=== PATIENT | male | born 1950 | race Caucasian/White ===

== ENCOUNTER 2016-10-01 08:53 | Outpatient (RCR) | payer BC ==
[~2016-10-01] VITALS: Ht 180.3 cm; Wt 82.1 kg
[~2016-10-01 08:53] MED LIST: ASPI-587 PO; CETI10CA PO; DECITABINE 40 MG in NS (IVPB) CANCER CENTER 50 ML IV SCH; ESOM20CA PO; FERR256T PO; FERR325T5 PO; HCTZ12.5T GT; HYDR-3454 PO; HYDR-3730 PO; HYDR25TA4 PO; LEVITRA; LIDOCAINE 2% ONE; LISI20TA PO; MULT-608 PO; NAPR220C11 PO; NAPR220T66 PO; NF-ESOM40C PO; NS IV 500 ML (CANCER CENTER) IV SCH; OMEG1CAP51 PO; ONDANSETRON MDV (CANCER CENTER 16 MG in NS (IVPB) CANCER CENTER 50 ML IV SCH; PRAV10TA PO; PRAV20TA PO; PROSTATIN; SUCR1TAB PO; VARD20TA30 PO; VARD5TAB5 PO; VITAMINES
[2016-10-01 09:03] LABS: BASOPHILS % (AUTO) 1 % (0-10); EOSINOPHILS % (AUTO) 1 % (0-10); LYMPHOCYTES # (AUTO) 0.5 X 10^3 (1.0-4.0); LYMPHOCYTES % (AUTO) 34 % (12-44); MEAN CORPUSCULAR HEMOGLOBIN 36 PG (25-34); MEAN CORPUSCULAR HGB CONC 36 G/DL (32-36); MEAN CORPUSCULAR VOLUME 99 FL (80-99); MEAN PLATELET VOLUME 8.5 FL (7.4-10.4); MONOCYTES # (AUTO) 0.1 X 10^3 (0.0-1.0); MONOCYTES % (AUTO) 9 % (0-12); NEUTROPHILS # (AUTO) 0.9 X 10^3 (1.8-7.8); NEUTROPHILS % (AUTO) 55 % (42-75); PLATELET COUNT 205 10^3/uL (130-400); RED BLOOD COUNT 3.58 10^6/uL (4.35-5.85); RED CELL DISTRIBUTION WIDTH 13.4 % (10.0-14.5); RETICULOCYTE % 2.14 % (0.50-2.40); WHITE BLOOD COUNT 1.6 10^3/uL (4.3-11.0)
[2016-10-01 09:35] LABS: BASOPHILS % (MANUAL) 1 %; LYMPHOCYTES % (MANUAL) 34 %; NEUTROPHILS % (MANUAL) 50 %; REACTIVE LYMPHOCYTES 4 %; STOMATOCYTES MODERATE
[2016-10-01 09:40] LABS: ALANINE AMINOTRANSFERASE 28 U/L (0-55); ALBUMIN 4.3 G/DL (3.2-4.5); ANION GAP 8 MMOL/L (5-14); ASPARTATE AMINO TRANSFERASE 27 U/L (5-34); BILIRUBIN,TOTAL 0.6 MG/DL (0.1-1.0); BLOOD UREA NITROGEN 12 MG/DL (7-18); BUN/CREATININE RATIO 13; CALCIUM 9.2 MG/DL (8.5-10.1); CARBON DIOXIDE 28 MMOL/L (21-32); CHLORIDE 92 MMOL/L (98-107); GFR ESTIMATED > 60; GLUCOSE 104 MG/DL (70-105); LACTATE DEHYDROGENASE 258 U/L (125-220); POTASSIUM 4.2 MMOL/L (3.6-5.0); SODIUM 128 MMOL/L (135-145); TOTAL PROTEIN 6.8 G/DL (6.4-8.2)
== END 2016-10-16 10:09 | disposition home or self-care (01) ==
LOC: ONC 08:53
PROVIDERS: ATTEND Internal Medicine Hematology & Oncology
DX: Z51.11 Encounter for antineoplastic chemotherapy (principal); D46.9 Myelodysplastic syndrome, unspecified; I10 Essential (primary) hypertension; E78.5 Hyperlipidemia, unspecified; Z79.899 Other long term (current) drug therapy; Z79.82 Long term (current) use of aspirin
CPT/HCPCS: 36415; 38221; 80053; 83615; 85007; 85027; 85045; 88184; 88185; 88237; 88264; 88280; 88305; 88311; 88313; 88368; 88369; 96375; 96413; 99213

== ENCOUNTER → 2016-11-05 | Outpatient (CLI) | payer MEDICARE, OTHER ==
[~2016-11-05] MED LIST changes: +CATHETER FLUSH 10 ML SYR IV PRN; -DECITABINE 40 MG in NS (IVPB) CANCER CENTER 50 ML IV SCH; +IOHEXOL 350 MG/ML 150 ML (OMNIPAQUE 350) VIAL IV ONE; -LIDOCAINE 2% ONE; +NS 100 ML (IVPB) BAG IV ONE; -NS IV 500 ML (CANCER CENTER) IV SCH; -ONDANSETRON MDV (CANCER CENTER 16 MG in NS (IVPB) CANCER CENTER 50 ML IV SCH
--- OUTSIDE RECORDS SUMMARY | 2016-11-05 09:30 | XMS REPORT | Continuity of Care Document ---
Author Author [facility] Organization [facility] Address Unknown Phone Unavailable Care Team Providers Care Formulation Scientist Name Role Phone ADRIAN MENJIVAR DO PCP Insurance Providers Payer Name Policy Number Subscriber Name Relationship [id number] Lyndon Jesus 18 Self / Same As Patient Advance Directives Directive Response Recorded Date/Time Advance Directives No 09/08/16 7:54am Health Care Power of Director Business Management No 09/08/16 7:54am Organ Donor Yes 09/08/16 7:54am Problems Active Problems Medical Problem Onset Date Status Chest pain Unknown Acute Medications Current Home Medications Medication Dose Units Route Directions Days/Qty Instructions Start Date Lisinopril 20 Mg 20 Mg Oral Daily 09/10/14 [place]-3 Fatty Acids/Fish Oil 1 Each 1,000 Mg [...] Discharge/Depart Date Attending Provider Discharged Recurring [facility] 10/01/16 8:53am 01/05/ 17 10:09am VALERIA ALEXANDER
--- NOTE | 2016-11-05 11:19 | Diagnostic Imaging Report ---
PROCEDURE: CT angiography of the chest with contrast. TECHNIQUE: Multiple contiguous axial images were obtained through the chest after uneventful bolus administration of intravenous contrast. Reconstructed CTA MIP acquisitions were also performed. INDICATION: Shortness of breath x 1 year. FINDINGS: The heart size is normal. The aorta appears normal. There are no pulmonary emboli. There is no hilar or mediastinal lymphadenopathy. The lungs are clear. There are no effusions or pneumothoraces. IMPRESSION: Negative CTA chest. Dictated by: Dictated on workstation # [id number]
== END ==
LOC: RAD 09:26
PROVIDERS: ATTEND Internal Medicine
DX: R06.09 Other forms of dyspnea (principal)
CPT/HCPCS: 71275

== ENCOUNTER → 2016-11-13 | Outpatient (CLI) | payer MEDICARE, OTHER ==
[~2016-11-13] MED LIST changes: -CATHETER FLUSH 10 ML SYR IV PRN; -IOHEXOL 350 MG/ML 150 ML (OMNIPAQUE 350) VIAL IV ONE; -NS 100 ML (IVPB) BAG IV ONE
--- OUTSIDE RECORDS SUMMARY | 2016-11-13 11:50 | XMS REPORT | Continuity of Care Document ---
Author Author [facility] Organization [facility] Address Unknown Phone Unavailable Care Team Providers Care Pharmacy Ancillary Name Role Phone ADRIAN MENJIVAR DO PCP Insurance Providers Payer Name Policy Number [id number] Lyndon Jesus 18 Self / Same As Patient Advance Directives Directive Response Recorded Date/Time Advance Directives No 09/08/16 7:54am Health Care Power of Nurse Receptionist No 09/08/16 7:54am Organ Donor Yes 09/08/16 7:54am Problems Active Problems Medical Problem Onset Date Status Chest pain Unknown Acute Medications Current Home Medications Medication Dose Units Route Directions Days/Qty Instructions Start Date Lisinopril 20 Mg 20 Mg Oral Daily 09/10/14 [place]-3 Fatty Acids/Fish Oil 1 Each 1,000 Mg [...] Discharge/Depart Date Attending Provider Discharged Recurring [facility] 10/01/16 8:53am 01/05/ 17 10:09am VALERIA ALEXANDER
--- NOTE | 2016-11-18 09:47 | ECHOCARDIOGRAPHY REPORT ---
PROCEDURE PHYSICIAN: BETTY DOMÍNGUEZ DATE OF PROCEDURE: 11/13/2016 TWO DIMENSIONAL ECHOCARDIOGRAM REPORT PRIMARY PHYSICIAN: Dr. Marques OTHER PHYSICIAN: Dr. Sanford REFERRING PHYSICIAN: ORDERING PHYSICIAN: Dr. Marques INDICATION FOR THE PROCEDURE: Shortness of breath MEASUREMENTS DERIVED VALUES LV DIAMETER (LAX) NORMALS NORMALS Diastolic 5. (3.6-5.2) Eject. Fract. (60%+/-6%) Systolic (2.3-3.9) Diastolic Vol. % Shortening (0.22-0.42) Systolic Vol. Aortic Root 3. IVS THICKNESS Diastolic 0.9 (0.6-1.1) LVPW THICKNESS Diastolic 0.9 (0.6-1.1) LA DIAMETER Systolic 4.6 (2.1-3.7) DESCRIPTION: Two-dimensional echocardiography shows normal global left ventricular systolic function with normal regional wall motion. Aortic, mitral and tricuspid valve leaflets show good leaflet excursion. There is no significant pericardial effusion. There is mild enlargement of the left atrium. Doppler imaging shows trivial to mild mitral and tricuspid regurgitation. Pulmonary artery systolic pressure is estimated to be approximately 35 mmHg. There is no Doppler evidence of significant valvular stenosis. There is trivial aortic regurgitation. The inferior vena cava appears mildly dilated but does exhibit inspiratory collapse. CONCLUSION: 1. Normal global left ventricular systolic function with an ejection fraction of approximately 60%. 2. Mild enlargement of the left atrium. 3. Trivial to mild mitral, tricuspid and aortic regurgitation. 4. Mild aortic valve sclerosis without evidence of significant valvular stenosis. 5. Pulmonary artery systolic pressure is estimated to be approximately 35 mmHg. Job ID: [id number] Dictated Date: 11/17/2016 12:51:27 Money Room Teller Date: 11/18/2016 09:41:28 / noble
== END ==
LOC: CARD 11:46
PROVIDERS: ATTEND Internal Medicine
DX: R06.09 Other forms of dyspnea (principal)
CPT/HCPCS: 93306

== ENCOUNTER → 2016-12-10 | Outpatient (CLI) | payer MEDICARE, OTHER ==
[~2016-12-10] MED LIST changes: +RT-ALBUTEROL SULF 2.5 MG/3 ML PRE-MIX VIAL INH ONE; +RT-ALBUTEROL SULF 2.5 MG/3 ML PRE-MIX VIAL ONE
--- OUTSIDE RECORDS SUMMARY | 2016-12-10 08:20 | XMS REPORT | Continuity of Care Document ---
Author Author [facility] Organization [facility] Address Unknown Phone Unavailable Care Team Providers Care Barrel Roller Name Role Phone ADRIAN MENJIVAR DO PCP Insurance Providers Payer Name Policy Number Subscriber Name [id number] Lyndon Jesus 18 Self / Same As Patient Advance Directives Directive Response Recorded Date/Time Advance Directives No 09/08/16 7:54am Health Care Power of Streetcar Operator No 09/08/16 7:54am Organ Donor Yes 09/08/16 7:54am Problems Active Problems Medical Problem Onset Date Status Chest pain Unknown Acute Medications Current Home Medications Medication Dose Units Route Directions Days/Qty Instructions Start Date Lisinopril 20 Mg 20 Mg Oral Daily 09/10/14 [place]-3 Fatty Acids/Fish Oil 1 Each 1,000 Mg [...] Discharge/Depart Date Attending Provider Discharged Recurring [facility] 10/01/16 8:53am 01/05/ 17 10:09am VALERIA ALEXANDER
== END ==
LOC: RT 08:17
PROVIDERS: ATTEND Nurse Practitioner Family
DX: R06.00 Dyspnea, unspecified (principal); D46.Z Other myelodysplastic syndromes; G47.33 Obstructive sleep apnea (adult) (pediatric); F17.201 Nicotine dependence, unspecified, in remission
CPT/HCPCS: 94060; 94640; 94726; 94729

== ENCOUNTER → 2017-01-14 | Outpatient (RCR) | payer MEDICARE, OTHER ==
--- OUTSIDE RECORDS SUMMARY | 2016-10-16 10:21 | XMS REPORT | Continuity of Care Document ---
Author Author [facility] Organization [facility] Address Unknown Phone Unavailable Care Team Providers Care Lactation Coordinator Name Role Phone ADRIAN MENJIVAR DO PCP Insurance Providers Payer Name Policy Number Subscriber [id number] Lyndon Jesus 18 Self / Same As Patient Advance Directives Directive Response Recorded Date/Time Advance Directives No 09/08/16 7:54am Health Care Power of Casing In Line Setter No 09/08/16 7:54am Organ Donor Yes 09/08/16 7:54am Problems Active Problems Medical Problem Onset Date Status Chest pain Unknown Acute Medications Current Home Medications Medication Dose Units Route Directions Days/Qty Instructions Start Date Lisinopril 20 Mg 20 Mg Oral Daily 09/10/14 [place]-3 Fatty Acids/Fish Oil 1 Each 1,000 Mg Oral Three Times A Day 09/10/14 Esomeprazole Magnesium 40 Mg 40 Mg Oral Daily 10/19/14 Multivitamins 1 Tab 1 Tab Oral 1700 10/19/14 Cetirizine Hcl 10 Mg 10 Mg Oral Daily 10/03/15 Naproxen Sodium 220 Mg 440 Mg Oral Twice A Day 07/28/16 Vardenafil Hcl 20 Mg 20 Mg Oral As Needed as needed for Erectile Dysfunction 07/28/16 Hydrochlorothiazide 25 Mg 25 Mg Oral Q Other Day 07/28/16 Past Home Medications Medication Directions Ordered Status Hydrochlorothiazide 12.5 Mg Cap, 25 Mg G Tube Daily 09/10/14 Discontinued [Prostatin] , 09/10/14 Discontinued Aspirin 81 Mg Tablet.dr, 81 Mg Oral 17009/10/14 Discontinued Naproxen Sodium 220 Mg Capsule, 220 Mg Oral 09/10/14 Discontinued [Levitra] , 09/10/14 Discontinued Pravastatin Sodium 10 Mg Tablet, 20 Mg Oral Bedtime 09/10/14 Discontinued Ferrous Gluconate 256 Mg Tablet, 65 Mg Oral As Needed 10/02/14 Discontinued Esomeprazole Magnesium 20 Mg Capsule., 1 Cap Oral Daily 10/02/14 Discontinued Pravastatin Sodium 10 Mg Tablet, 20 Mg Oral Bedtime 10/02/14 Discontinued Sucralfate 1 G Tablet, 1 G Oral Before Meals And At Bedtime 10/02/14 Discontinued [Vitamines] , 10/02/14 Discontinued Hydrochlorothiazide 25 Mg Tablet, 25 Mg Oral Daily 10/19/14 Discontinued Pravastatin Sodium 20 Mg Tablet, 20 Mg Oral Bedtime 10/19/14 Discontinued Ferrous Sulfate 1 Tab.ec Tablet., 1 Tab.ec Oral Thursday & Night Discontinued Vardenafil Hcl 5 Mg Tablet, 5 Mg Oral Hs Prn 10/19/14 Discontinued Naproxen Sodium 220 Mg Capsule, 220 Mg Oral Twice A Day 10/19/14 Discontinued Hydrocodone Bit/Acetaminophen 1 Each Tablet, 1-2 Each Oral Q4 - 6H as needed for Pain 10/20/14 Discontinued Hydrocodone/Acetaminophen 1 Each Tablet, 1 Each Oral Every 4HRS for Pain Discontinued Social History Social History Problem Response Recorded Date/Time Alcohol Use Regular Use 09/10/2014 5:27am Recreational Drug Use No 09/10/2014 5:27am Recent Foreign Travel N [place] 08/04/2016 3:00pm Sexually Transmitted Disease No 09/08/2016 7:54am HIV/AIDS No 09/08/2016 7:54am Do you dip or chew tobacco? No 10/08/2015 8:35am Recent Hopitalizations No 09/08/2016 7:54am Sexually Transmitted Disease No 09/08/2016 7:54am Hospital Discharge Instructions No hospital discharge instructions. Plan of Care Prescriptions See Medication Section Functional Status No functional status results. Allergies, Adverse Reactions, Alerts No known allergies. Immunizations No immunization records. Vital Signs Acute Vital Signs Vital Response Date/Time Height 5 ft 11 in Weight 181 lb Body Mass Index 25.2 kg/m^2 Results Laboratory Results Test Name Result Units Flags Reference Collection Date/Time Result Date/ Time Comments White Blood Count 1.6 10^3/uL L 4.3-11.0 10/01/2016 8:58am 10/01/2016 9: 04am Red Blood Count 3.58 10^6/uL L 4.35-5.85 10/01/2016 8:58am 10/01/2016 9: 04am Hemoglobin 12.9 G/DL L 13.3-17.7 10/01/2016 8:58am 10/01/2016 9:04am Hematocrit 36 % L 40-54 10/01/2016 8:58am 10/01/2016 9:04am Mean Corpuscular Volume 99 FL 80-99 10/01/2016 8:58am 10/01/2016 9: 04am Mean Corpuscular Hemoglobin 36 PG H 25-34 10/01/2016 8:58am 10/01/2016 9: 04am Mean Corpuscular Hemoglobin Concent 36 G/DL 32-36 10/01/2016 8:58am 9:04am Red Cell Distribution Width 13.4 % 10.0-14.5 10/01/2016 8:58am 2015 9:04am Platelet Count 205 10^3/uL 130-400 10/01/2016 8:58am 10/01/2016 9:04am Mean Platelet Volume 8.5 FL 7.4-10.4 10/01/2016 8:58am 10/01/2016 9: 04am Neutrophils (%) (Auto) 55 % 42-75 10/01/2016 8:58am 10/01/2016 9:04am Lymphocytes (%) (Auto) 34 % 12-44 10/01/2016 8:58am 10/01/2016 9:04am Monocytes (%) (Auto) 9 % 0-12 10/01/2016 8:58am 10/01/2016 9:04am Eosinophils (%) (Auto) 1 % 0-10 10/01/2016 8:58am 10/01/2016 9:04am Basophils (%) (Auto) 1 % 0-10 10/01/2016 8:58am 10/01/2016 9:04am Neutrophils # (Auto) 0.9 X 10^3 L 1.8-7.8 10/01/2016 8:58am 10/01/2016 9: 04am Lymphocytes # (Auto) 0.5 X 10^3 L 1.0-4.0 10/01/2016 8:58am 10/01/2016 9: 04am Monocytes # (Auto) 0.1 X 10^3 0.0-1.0 10/01/2016 8:58am 10/01/2016 9: 04am Eosinophils # (Auto) 0.0 10^3/uL 0.0-0.3 10/01/2016 8:58am 10/01/2016 9 :04am Basophils # (Auto) 0.0 10^3/uL 0.0-0.1 10/01/2016 8:58am 10/01/2016 9: 04am Neutrophils % (Manual) 50 % 10/01/2016 8:58am 10/01/2016 9:35am Lymphocytes % (Manual) 34 % 10/01/2016 8:58am 10/01/2016 9:35am Monocytes % (Manual) 11 % 10/01/2016 8:58am 10/01/2016 9:35am Basophils % (Manual) 1 % 10/01/2016 8:58am 10/01/2016 9:35am Reactive Lymphocytes 4 % 10/01/2016 8:58am 10/01/2016 9:35am Stomatocytes MODERATE 10/01/2016 8:58am 10/01/2016 9:35am Absolute Reticulocyte Count 77 10e9/L 24-90 10/01/2016 8:58am 2015 9:04am Percent Reticulocyte Count 2.14 % 0.50-2.40 10/01/2016 8:58am 2015 9:04am Sodium Level 128 MMOL/L L 135-145 10/01/2016 8:58am 10/01/2016 9:42am Potassium Level 4.2 MMOL/L 3.6-5.0 10/01/2016 8:58am 10/01/2016 9:42am Chloride Level 92 MMOL/L L 98-107 10/01/2016 8:58am 10/01/2016 9:42am Carbon Dioxide Level 28 MMOL/L 21-32 10/01/2016 8:58am 10/01/2016 9: 42am Anion Gap 8 MMOL/L 5-14 10/01/2016 8:58am 10/01/2016 9:42am Blood Urea Nitrogen 12 MG/DL 7-18 10/01/2016 8:58am 10/01/2016 9:42am Creatinine 0.90 MG/DL 0.60-1.30 10/01/2016 8:58am 10/01/2016 9:42am BUN/Creatinine Ratio 13 10/01/2016 8:58am 10/01/2016 9:42am Estimat Glomerular Filtration Rate > 60 10/01/2016 8:58am 2015 9:42am GFR INTERPRETIVE DATA UNITS FOR ESTIMATED GFR (eGFR): mL/min/1.73 M2 REFERENCE RANGE FOR ESTIMATED GFR (eGFR) eGFR NORMAL eGFR >60 MODERATELY DECREASED eGFR 30-59 SEVERLY DECREASED eGFR 15-29 KIDNEY FAILURE <15 (OR DIALYSIS) Glucose Level 104 MG/DL 70-105 10/01/2016 8:58am 10/01/2016 9:42am Calcium Level 9.2 MG/DL 8.5-10.1 10/01/2016 8:58am 10/01/2016 9:42am Total Bilirubin 0.6 MG/DL 0.1-1.0 10/01/2016 8:58am 10/01/2016 9:42am Alkaline Phosphatase 76 U/L 40-136 10/01/2016 8:58am 10/01/2016 9:42am Aspartate Amino Transf (AST/SGOT) 27 U/L 5-34 10/01/2016 8:58am 2015 9:42am Alanine Aminotransferase (ALT/SGPT) 28 U/L 0-55 10/01/2016 8:58am 10/01 9:42am Lactate Dehydrogenase 258 U/L H 125-220 10/01/2016 8:58am 10/01/2016 9: 42am Total Protein 6.8 G/DL 6.4-8.2 10/01/2016 8:58am 10/01/2016 9:42am Albumin 4.3 G/DL 3.2-4.5 10/01/2016 8:58am 10/01/2016 9:42am Procedures No known history of procedures. Encounters Encounter Location Arrival/Admit Date Discharge/Depart Date Attending Provider Discharged Recurring [facility] 10/01/16 8:53am 01/05/ 17 10:09am VALERIA ALEXANDER
[~2017-01-14] VITALS: Ht 180.3 cm; Wt 81.6 kg
[~2017-01-14] MED LIST changes: +DECITABINE 40 MG in NS (IVPB) CANCER CENTER 50 ML IV SCH; +NS (IVPB) CANCER CENTER 250 ML ONE; +NS IV 500 ML (CANCER CENTER) IV SCH; +ONDANSETRON MDV (CANCER CENTER 16 MG in NS (IVPB) CANCER CENTER 50 ML IV SCH; -RT-ALBUTEROL SULF 2.5 MG/3 ML PRE-MIX VIAL INH ONE; -RT-ALBUTEROL SULF 2.5 MG/3 ML PRE-MIX VIAL ONE
== END | disposition home or self-care (01) ==
LOC: ONC 10-16 10:18
PROVIDERS: ATTEND Internal Medicine Hematology & Oncology
DX: Z51.11 Encounter for antineoplastic chemotherapy (principal); D46.9 Myelodysplastic syndrome, unspecified; I10 Essential (primary) hypertension; E78.5 Hyperlipidemia, unspecified; Z79.899 Other long term (current) drug therapy; Z79.82 Long term (current) use of aspirin
CPT/HCPCS: 96375; 96413; 99213

== ENCOUNTER 2017-03-20 14:03 | Outpatient (RCR) | payer MEDICARE, OTHER ==
[~2017-03-20] VITALS: Ht 180.3 cm; Wt 82.1 kg
[~2017-03-20 14:03] MED LIST changes: -NS (IVPB) CANCER CENTER 250 ML ONE
== END 2017-04-15 | disposition home or self-care (01) ==
LOC: ONC 14:03
PROVIDERS: ATTEND Internal Medicine Hematology & Oncology
DX: Z51.11 Encounter for antineoplastic chemotherapy (principal); D46.9 Myelodysplastic syndrome, unspecified; I10 Essential (primary) hypertension; E78.5 Hyperlipidemia, unspecified; Z79.899 Other long term (current) drug therapy; Z79.82 Long term (current) use of aspirin
CPT/HCPCS: 96375; 96413; 99213

== ENCOUNTER 2017-04-24 08:52 | Outpatient (RCR) | payer MEDICARE, OTHER | END 2017-07-11 | disposition home or self-care (01) | LOC: ONC 08:52 | PROVIDERS: ATTEND Internal Medicine Hematology & Oncology | DX: Z51.11 Encounter for antineoplastic chemotherapy (principal); D46.9 Myelodysplastic syndrome, unspecified; I10 Essential (primary) hypertension; E78.5 Hyperlipidemia, unspecified; Z79.899 Other long term (current) drug therapy; Z79.82 Long term (current) use of aspirin | CPT/HCPCS: 96375; 96413; 99213 ==

== ENCOUNTER 2017-11-01 09:00 | Outpatient (RCR) | payer MEDICARE, OTHER ==
[2017-10-23 15:10] VITALS: BP 178/90
[2017-10-23] MEDS: CATHETER FLUSH 10 ML SYR IV PRN (18:30)
[2017-10-24 08:55] VITALS: BP 166/88
[2017-10-24] MEDS: CATHETER FLUSH 10 ML SYR IV PRN (09:10)
[2017-10-24] MEDS: ANIDULAFUNGIN IV SCH ×2 (09:13)
[2017-10-24] MEDS: SODIUM CHLORIDE IV SCH ×2 (09:13)
[2017-10-25 08:55] VITALS: BP 166/93
[2017-10-25] MEDS: SODIUM CHLORIDE IV SCH ×2 (09:10)
[2017-10-25] MEDS: CATHETER FLUSH 10 ML SYR IV PRN (09:10)
[2017-10-25] MEDS: ANIDULAFUNGIN IV SCH ×2 (09:10)
[2017-10-26] MEDS: SODIUM CHLORIDE IV SCH ×2 (09:10)
[2017-10-26] MEDS: CATHETER FLUSH 10 ML SYR IV PRN ×3 (09:10→10:35)
[2017-10-26] MEDS: ANIDULAFUNGIN IV SCH ×2 (09:10)
[2017-10-26 10:35] VITALS: BP 164/90
[2017-10-27] MEDS: ANIDULAFUNGIN IV SCH ×2 (09:02)
[2017-10-27] MEDS: SODIUM CHLORIDE IV SCH ×2 (09:02)
[2017-10-27] MEDS: CATHETER FLUSH 10 ML SYR IV PRN ×2 (09:02→10:28)
[2017-10-27 10:30] VITALS: BP 175/88
--- NOTE | 2017-10-27 15:21 | Physician Query-Final Dx ---
CHALO BLOOM 10/27/17 1521: Clinic Account Progress/Dx Physician Query: Please give a diagnosis for the Anidulafungin treatment thank you Date of Service Oct 27, 2017 at 08:40 VALERIA ALEXANDER 11/05/17 0949: Clinic Account Progress/Dx DIAGNOSIS: Diagnosis 1. AML, s/p allogeneic BMT. 2. Fungal pneumonia. 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 Status post allogeneic BMT at [facility]. Complications of fungal pneumonia. Improving and home from but needed continuation of antifungal therapy. Still under active care of BMT team. CHALO BLOOM Oct 27, 2017 15:21 VALERIA ALEXANDER Nov 05, 2017 09:49
[2017-10-29 09:00] VITALS: BP 136/71
[2017-10-29] MEDS: ANIDULAFUNGIN IV SCH ×2 (09:02)
[2017-10-29] MEDS: SODIUM CHLORIDE IV SCH ×2 (09:02)
[2017-10-29] MEDS: CATHETER FLUSH 10 ML SYR IV PRN (09:03)
[2017-10-30] MEDS: ANIDULAFUNGIN IV SCH ×2 (09:13)
[2017-10-30] MEDS: DEXTROSE IV SCH ×2 (09:13)
[2017-10-30 09:24] VITALS: BP 161/86
[2017-10-30 10:47] VITALS: BP 161/86
[2017-10-31] MEDS: CATHETER FLUSH 10 ML SYR IV PRN ×2 (09:41→11:07)
[2017-10-31] MEDS: ANIDULAFUNGIN IV SCH ×2 (09:41)
[2017-10-31] MEDS: DEXTROSE IV SCH ×2 (09:41)
[2017-10-31 11:10] VITALS: BP 176/86
[~2017-11-01] VITALS: Ht 180.3 cm; Wt 71.7 kg
[~2017-11-01 09:00] MED LIST changes: +ANIDULAFUNGIN 200 MG/NS 250 ML IVPB IV ONE; -DECITABINE 40 MG in NS (IVPB) CANCER CENTER 50 ML IV SCH; -NS IV 500 ML (CANCER CENTER) IV SCH; -ONDANSETRON MDV (CANCER CENTER 16 MG in NS (IVPB) CANCER CENTER 50 ML IV SCH
[2017-11-01] MEDS: ANIDULAFUNGIN IV SCH ×2 (09:15)
[2017-11-01] MEDS: DEXTROSE IV SCH ×2 (09:15)
[2017-11-01] MEDS: CATHETER FLUSH 10 ML SYR IV PRN ×2 (09:16→10:39)
[2017-11-01 10:42] VITALS: BP 167/86
== END 2018-01-21 | disposition home or self-care (01) ==
LOC: SDC 09:00
PROVIDERS: ATTEND Internal Medicine Hematology & Oncology
DX: J16.8 Pneumonia due to other specified infectious organisms (principal); C92.00 Acute myeloblastic leukemia, not having achieved remission; Z94.81 Bone marrow transplant status
CPT/HCPCS: 96365; 96366

== ENCOUNTER → 2017-12-07 | Outpatient (CLI) | payer MEDICARE, OTHER ==
[~2017-12-07] MED LIST changes: -ANIDULAFUNGIN 200 MG/NS 250 ML IVPB IV ONE
== END ==
LOC: RT 11-30 14:01
PROVIDERS: ATTEND Internal Medicine Hematology & Oncology
DX: D46.9 Myelodysplastic syndrome, unspecified (principal); Z94.84 Stem cells transplant status
CPT/HCPCS: 94060; 94726; 94729

== ENCOUNTER 2018-04-01 19:18 | Emergency (ER) | payer MEDICARE, OTHER ==
[~2018-04-01] VITALS: Ht 177.8 cm; Wt 75.3 kg
--- OUTSIDE RECORDS SUMMARY | 2018-04-01 19:24 | XMS REPORT | Encounter Summary ---
Author Author [facility] Organization [facility] Address Unknown Phone Unavailable Care Team Providers Care Curtain Cleaner Name Role Phone Mirna Marques PCP Marco A Sanford MD [id number] Reason for Visit * Reason Comments Blurred Vision Referral from [facility]ico, rpe changes, sherri. Pat states that after chemo and bone marrow transplant his current glasses are very poor for distance. His DVA is better without glasses. NVA is strained and blurry with or without glasses Medications Only Used ATs for 2 months bid ou. No improvment Encounter Details Date Type Department Care Team Description 04/01/2018 Office Visit [facility] Mario Bhagat MD Retinal scar of left eye; Physicians - [address] [facility] [place] [address] degeneration of left [address] [place] [phone] retina; 100 Pseudophakia of both [place], [place] eyes; [phone] Dry eye syndrome of [phone] bilateral lacrimal glands Social History Tobacco Use Types Packs/Day Years Used Date Former Smoker Cigars 1 5 Quit: 03/24/2003 Smokeless Tobacco: Never Used Alcohol Use Drinks/Week oz/Week Comments Yes 6 Cans of 3.6 beer Sex Assigned at Date Recorded Not on file as of this encounter Last Filed Vital Signs Vital Sign Reading Time Taken Blood Pressure - - Pulse - - Temperature - - Respiratory Rate - - Oxygen Saturation - - Inhaled Oxygen - - Concentration Weight 76.2 kg (168 lb) 04/01/2018 12:59 PM CDT Height 180 cm (5' 10.87") 04/01/2018 12:59 PM CDT Body Mass Index 23.52 04/01/2018 12:59 PM CDT in this encounter Functional Status Functional Status Response Date of Assessment Does the patient have a hearing impairment: No 06/25/2017 Does the patient have a visual impairment: No 06/25/2017 Does the patient have impaired ambulation: No 06/25/2017 Does the patient have an activity of daily living No 06/25/2017 (ADL) impairment: Does the patient have an instrumental activity of No 06/25/2017 daily living (IADL) impairment: Cognitive Status Response Date of Assessment Does the patient have a cognitive impairment: No 06/25/2017 as of this encounter Progress Notes * Mario Bhagat MD - 04/01/2018 1:30 PM CDT Formatting of this note may be different from the original. Body mass index is 23.52 kg/m. CBC AND DIFF Component Value Flag Ref Range Units Status White Blood Cells 5.3 4.5 - 11.0 K/UL Final RBC 2.99 (Low) L 4.4 - 5.5 M/UL Final Hemoglobin 12.6 (Low) L 13.5 - 16.5 GM/DL Final Hematocrit 36.0 (Low) L 40 - 50 % Final MCV 120.3 (High) H 80 - 100 FL Final MCH 42.0 (High) H 26 - 34 PG Final MCHC 34.9 32.0 - 36.0 G/DL Final RDW 12.8 11 - 15 % Final Platelet Count 231 150 - 400 K/UL Final MPV 6.6 (Low) L 7 - 11 FL Final Neutrophils 67 41 - 77 % Final Lymphocytes 11 (Low) L 24 - 44 % Final Monocytes 15 (High) H 4 - 12 % Final Eosinophils 6 (High) H 0 - 5 % Final Basophils 1 0 - 2 % Final Absolute Neutrophil Count 3.60 1.8 - 7.0 K/UL Final Absolute Lymph Count 0.60 (Low) L 1.0 - 4.8 K/UL Final Absolute Monocyte Count 0.80 0 - 0.80 K/UL Final Absolute Eosinophil Count 0.30 0 - 0.45 K/UL Final Absolute Basophil Count 0.00 0 - 0.20 K/UL Final COMPREHENSIVE METABOLIC PANEL Component Value Flag Ref Range Units Status Sodium 133 (Low) L 137 - 147 MMOL/L Final Potassium 4.1 3.5 - 5.1 MMOL/L Final Chloride 102 98 - 110 MMOL/L Final Glucose 99 70 - 100 MG/DL Final Blood Urea Nitrogen 13 7 - 25 MG/DL Final Creatinine 0.87 0.4 - 1.24 MG/DL Final Calcium 9.3 8.5 - 10.6 MG/DL Final Total Protein 6.8 6.0 - 8.0 G/DL Final Total Bilirubin 0.7 0.3 - 1.2 MG/DL Final Albumin 4.3 3.5 - 5.0 G/DL Final Alk Phosphatase 228 (High) H 25 - 110 U/L Final AST (SGOT) 55 (High) H 7 - 40 U/L Final CO2 26 21 - 30 MMOL/L Final ALT (SGPT) 70 (High) H 7 - 56 U/L Final Anion Gap 5 3 - 12 Final eGFR Non >60 >60 mL/min Final Comment: The eGFR is not validated for use in drug dosing adjustments. Continue to use estimated creatinine clearance per dosing reference text. Please contact the Clinical Pharmacist for questions. eGFR >60 >60 mL/min Final Comment: The eGFR is not validated for use in drug dosing adjustments. Continue to use estimated creatinine clearance per dosing reference text. Please contact the Clinical Pharmacist for questions. MAGNESIUM Component Value Flag Ref Range Units Status Magnesium 2.2 1.6 - 2.6 mg/dL Final VITAMIN B12 Component Value Flag Ref Range Units Status Vitamin B12 380 180 - 914 PG/ML Final Oct: OD: Preserved foveal contour with distinguished retinal layers, drusens OS: Preserved foveal contour with distinguished retinal layers, driusens. Optos: OD: retina all ON OS: retina scars (sup-nasal, and inf-nasal) Assessment and Plan: Hx of leukemia MDS S/p BMT 05/2017, finished with chemotherapy shortly after the transplant 1- [place] degeneration (inferiroly) OS Monitor 2- retinal scars OS (?POH) Monitor 2- Dry Eye syndrome OU Continue ATs QID and lid care as per 3- PCIOL OU F/u Signs and symptoms of retinal tears and retinal detachment were reviewed in details with the patient. Patient was instructed to immediately present for evaluation or seek medical help if increased flashes, increased floaters, any decrease in vision, or curtain in field of vision. 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
--- OUTSIDE RECORDS SUMMARY | 2018-04-01 19:24 | XMS REPORT | Encounter Summary ---
Author Author [facility] Organization [facility] Address Unknown Phone Unavailable Care Team Providers Care Tape Stringer Name Role Phone Mirna Marques PCP Marco A Sanford MD [phone] Reason for Visit * Reason Comments Heme/Onc Care Encounter Details Date Type Department Care Team Description 04/01/2018 Nurse Only [facility] Theresa Gutiérrez APRN H/O stem cell transplant [facility] - BMT Exam [address] ([facility]); [address] [address] [place] [address] MDS (myelodysplastic [address] [place] [address] syndrome), [place] [address] ([facility]) [phone] Social History Tobacco Use Types Packs/Day Years Used Date Former Smoker Cigars 1 5 Quit: 03/24/2003 Smokeless Tobacco: Never Used Alcohol Use Drinks/Week oz/Week Comments Yes 6 Cans of 3.6 beer Sex Assigned at Date Recorded Not on file as of this encounter Functional Status Functional Status Response [...] impairment: No 06/25/2017 as of this encounter Plan of Treatment Not on fileas of this encounter Results * VITAMIN B12 (04/01/2018 8:39 AM) Component Value Ref Range Vitamin B12 380 180 - 914 PG/ML Specimen Performing Laboratory Blood [facility] [address] [place] [address] * MAGNESIUM (04/01/2018 8:39 AM) Component Value Ref Range Magnesium 2.2 1.6 - 2.6 mg/dL Specimen Performing Laboratory Blood [facility] [address] [place] [address] * COMPREHENSIVE METABOLIC PANEL (04/01/2018 8:39 AM) Component Value Ref Range Sodium 133 (L) 137 - 147 MMOL/L Potassium 4.1 3.5 - 5.1 MMOL/L Chloride 102 98 - 110 MMOL/L Glucose 99 70 - 100 MG/DL Blood Urea Nitrogen 13 7 - 25 MG/DL Creatinine 0.87 0.4 - 1.24 MG/DL Calcium 9.3 8.5 - 10.6 MG/DL Total Protein 6.8 6.0 - 8.0 G/DL Total Bilirubin 0.7 0.3 - 1.2 MG/DL Albumin 4.3 3.5 - 5.0 G/DL Alk Phosphatase 228 (H) 25 - 110 U/L AST (SGOT) 55 (H) 7 - 40 U/L CO2 26 21 - 30 MMOL/L ALT (SGPT) 70 (H) 7 - 56 U/L Anion Gap 5 3 - 12 eGFR Non >60 >60 mL/min Comment: The eGFR is not validated for use in drug dosing adjustments.Continue to use estimated creatinine clearance per dosing reference text.Please contact the Clinical Pharmacist for questions. eGFR >60 >60 mL/min Comment: The eGFR is not validated for use in drug dosing adjustments.Continue to use estimated creatinine clearance per dosing reference text.Please contact the Clinical Pharmacist for questions. Specimen Performing Laboratory Blood [facility] [address] [place] [address] * CBC AND DIFF (04/01/2018 8:39 AM) Component Value Ref Range White Blood Cells 5.3 4.5 - 11.0 K/UL RBC 2.99 (L) 4.4 - 5.5 M/UL Hemoglobin 12.6 (L) 13.5 - 16.5 GM/DL Hematocrit 36.0 (L) 40 - 50 % MCV 120.3 (H) 80 - 100 FL MCH 42.0 (H) 26 - 34 PG MCHC 34.9 32.0 - 36.0 G/DL RDW 12.8 11 - 15 % Platelet Count 231 150 - 400 K/UL MPV 6.6 (L) 7 - 11 FL Neutrophils 67 41 - 77 % Lymphocytes 11 (L) 24 - 44 % Monocytes 15 (H) 4 - 12 % Eosinophils 6 (H) 0 - 5 % Basophils 1 0 - 2 % Absolute Neutrophil Count 3.60 1.8 - 7.0 K/UL Absolute Lymph Count 0.60 (L) 1.0 - 4.8 K/UL Absolute Monocyte Count 0.80 0 - 0.80 K/UL Absolute Eosinophil Count 0.30 0 - 0.45 K/UL Absolute Basophil Count 0.00 0 - 0.20 K/UL Specimen Performing Laboratory Blood [facility] [address] [place] [address] in this encounter Visit Diagnoses Diagnosis H/O stem cell transplant (HCC) Peripheral stem cells replaced by transplant MDS (myelodysplastic syndrome), high grade (HCC) High grade myelodysplastic syndrome lesions
--- OUTSIDE RECORDS SUMMARY | 2018-04-01 19:24 | XMS REPORT | Clinical Summary ---
Author Author [facility] Address Unknown Phone Unavailable Care Team Providers Care Associate Director Financial Aid Name Role Phone Mirna Marques PCP Marco A Sanford MD [id number] Source Comments Some departments are not documenting in the electronic medical record. If you do not see the information that you expected, contact Release of Information in the Health Information Management department at [phone] for further assistance in locating additional records.[facility] Allergies No Known Allergies Current Medications Prescription Sig. Disp. Refills Start End Date Status Date pantoprazole DR Take 1 tablet by mouth 90 tablet 3 07/03/20 Active (PROTONIX) 40 mg tablet daily. 17 traMADol (ULTRAM) 50 mg Take 50 mg by mouth daily Active tablet as needed for Pain. acyclovir (ZOVIRAX) 800 Take 1 tablet by mouth 60 tablet 5 11/04/19 Active mg tabletIndications: MDS twice a day. 18 (myelodysplastic syndrome), high grade (HCC) metoprolol tartrate Take 3 tablets by mouth 180 tablet 3 02/04/20 Active (LOPRESSOR) 25 mg tablet twice daily. 18 losartan (COZAAR) 50 mg TAKE 2 TABLETS BY MOUTH 60 tablet 3 02/09/20 Active tablet DAILY 18 fsh/flx/prim/cur/bor/om3, Take 1 capsule by mouth Active 6,9 5 (OMEGA 3-6-9 FATTY three times daily. ACIDS PO) vardenafil(+) (LEVITRA) As Needed as needed for Active 20 mg tablet Erectile Dysfunction dapsone 100 mg tablet Take 1 tablet by mouth 30 tablet 3 02/19/20 Active daily. 18 folic acid (FOLVITE) 1 mg Take 5 tablets by mouth 90 tablet 05/24/20 Active tablet daily. 18 budesonide (ENTOCORT EC) Take 1 capsule by mouth 60 capsule 1 Active 3 mg capsule twice daily. 18 cyclosporine (RESTASIS) Apply 1 drop to both eyes 30 each 4 09/14/20 04/01/20 Discontin 0.05 % ophthalmic twice daily. 17 18 ued emulsion budesonide (ENTOCORT EC) Take 1 capsule by mouth 60 capsule 0 03/04/20 Discontin 3 mg capsule twice daily. [address](+) Daily 03/04/20 Discontin (NEXIUM) 40 mg capsule 18 ued cetirizine (ZYRTEC) 10 mg Daily 04/01/20 Discontin tablet 18 ued hydroCHLOROthiazide Take 1 tablet by mouth 04/01/20 Discontin (HYDRODIURIL) 25 mg every 48 hours. 18 ued tablet lisinopril (PRINIVIL) 20 Daily 04/01/20 Discontin mg tablet 18 ued naproxen sodium(+) Take 220 mg by mouth 04/01/20 Discontin (ALEVE) 220 mg tablet twice daily. 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[facility]) 09/24/2017 Pseudophakia of both eyes 09/14/2017 Last Assessment & Plan: No PCO, well-centered Continue to monitor Dry eye syndrome of bilateral lacrimal glands 09/14/2017 Overview: Schirmers 15,17 L ast Assessment & Plan: No dry eye on exam Restasis is working well Continue Restasis BID and add ATs Nausea 08/31/2017 Drug-induced polyneuropathy (HCC) 07/27/2017 H/O bone marrow transplant (HCC) 06/04/2017 Fatigue 05/30/2017 HTN (hypertension) 05/15/2017 MDS (myelodysplastic syndrome), high grade (HCC) 04/08/2017 Resolved Problems Problem Noted Date Resolved Date Thrombocytopenia (HCC) 10/21/2017 01/13/2018 Peripheral edema 09/14/2017 01/13/2018 Dry skin 08/24/2017 01/13/2018 Pseudogout involving multiple joints 07/13/2017 01/13/2018 Gout of left ankle 07/06/2017 07/13/2017 Pancytopenia due to antineoplastic chemotherapy (HCC) 06/26/20172017 Neutropenic fever (HCC) 06/22/2017 06/22/2017 Hypomagnesemia 06/22/2017 01/13/2018 Hypokalemia 06/03/2017 01/13/2018 On antineoplastic chemotherapy 05/29/2017 05/29/2017 Therapeutic drug monitoring 05/29/2017 01/13/2018 Encounter for antineoplastic chemotherapy 05/28/2017 06/22/2017 Chemotherapy-induced neutropenia (HCC) 05/28/2017 06/22/2017 Psoriasis 04/08/2017 01/13/2018 Encounters Date Type Specialty Care Team Description 04/01/2018 Office Visit Ophthalmology Mario Bhagat MD Retinal scar of left eye; Paving stone degeneration of left retina; Pseudophakia of both eyes; Dry eye syndrome of bilateral lacrimal glands 04/01/2018 Hospital Oncology Theresa Gutiérrez APRN Encounter 04/01/2018 Office Visit Oncology Thersea Gutiérrez APRN S/P bone marrow transplant (HCC) (Primary Dx); MDS (myelodysplastic syndrome), high grade (HCC); Essential hypertension; Fatigue due to exposure, subsequent encounter; H/O bone marrow transplant (HCC); 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); Nausea; Drug-induced polyneuropathy (HCC); Anorexia; Hyponatremia 04/01/2018 Nurse Only Oncology Theresa Gutiérrez APRN H/O stem cell transplant (HCC); MDS (myelodysplastic syndrome), high grade (HCC) 03/29/2018 Telephone Oncology Theresa Lopez RN Nausea (lack of appetite along with Nausea) 03/10/2018 Telephone Oncology Theresa Lopez RN Medication Question 03/06/2018 Refill Oncology Brian Gudino DO 03/04/2018 Office Visit Oncology Brian Gudino DO H/O stem cell transplant (HCC) (Primary Dx); MDS (myelodysplastic syndrome), high grade (HCC); Essential hypertension; H/O bone marrow transplant (HCC) 03/04/2018 Lab Only Oncology Brian Gudino DO H/O stem cell transplant (HCC) 02/24/2018 Telephone Ophthalmology Mario Bhagat MD Appointment 02/18/2018 Office Visit Ophthalmology Mario Bhagat MD No-show for appointment 02/18/2018 Office Visit Oncology Theresa Gutiérrez APRN H/O stem cell transplant (HCC) (Primary Dx); MDS (myelodysplastic syndrome), high grade (HCC); Essential hypertension; Fatigue due to exposure, subsequent encounter; Drug-induced polyneuropathy (HCC); H/O bone marrow transplant (HCC); 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); 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 02/18/2018 Nurse Only Oncology Theresa Gutiérrez APRN MDS (myelodysplastic syndrome), high grade (HCC); H/O bone marrow transplant (HCC) 02/06/2018 Refill Oncology Franky Harkins MD 02/03/2018 Nurse Only Oncology Brian Gudino DO H/O bone marrow transplant (HCC) 02/03/2018 Office Visit Oncology Brian Gudino DO MDS ( myelodysplastic syndrome), high grade (HCC) (Primary Dx); Essential hypertension; H/O bone marrow transplant (HCC); Drug-induced polyneuropathy (HCC); 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); H/O stem cell transplant (HCC) 01/18/2018 Hospital Oncology Brian Gudino DO Encounter 01/18/2018 Office Visit Oncology Brian Gudino DO H/O bone marrow transplant (HCC) (Primary Dx); MDS (myelodysplastic syndrome), high grade (HCC); Essential hypertension; Drug-induced polyneuropathy (HCC); 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); H/O stem cell transplant (HCC) 01/18/2018 Nurse Only Oncology Brian Gudino DO H/O stem cell transplant (HCC) 01/18/2018 Procedure Pass 01/15/2018 Orders Only Oncology Stefanie Borjas RN H/O stem cell transplant (HCC) (Primary Dx) 01/13/2018 Office Visit Oncology Sarah Fischer APRN MDS ( myelodysplastic syndrome), high grade (HCC) (Primary Dx); H/O bone marrow transplant (HCC); Nausea; Lack of appetite; Fatigue due to exposure, subsequent encounter; Essential hypertension; 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); Anorexia 01/13/2018 Nurse Only Oncology Sarah Fischer APRN MDS ( myelodysplastic syndrome), high grade (HCC); H/O bone marrow transplant (HCC) 01/13/2018 Pharmacy Visit 01/13/2018 Pharmacy Visit 12/30/2017 Office Visit Oncology Brian Gudino DO MDS ( myelodysplastic syndrome), high grade (HCC) (Primary Dx); H/O bone marrow transplant (HCC); Essential hypertension; Fatigue due to exposure, subsequent encounter; Other longterm (current) drug therapy ; Vitamin D deficiency ; Therapeutic drug monitoring; Hypokalemia; Pancytopenia due to antineoplastic chemotherapy (HCC); Drug-induced polyneuropathy (HCC) 12/30/2017 Nurse Only Oncology Brian Gudino DO H/O bone marrow transplant (HCC) from Last 3 Months Immunizations Name Dates Previously Given Next Due Flu Vaccine=>64 YO 07/01/2017 High-Dose (PF) Hepatitis B Vaccine Adult 01/18/2018, 12/09/2017 3 Dose IM Hib conj vaccine, 4 dose 04/01/2018, 01/18/2018, 12/09/2017 (PRP-T) IM (ActHIB) IPV 04/01/2018, 01/18/2018, 12/09/2017 Meningococcal Conjug 12/09/2017 Vaccine IM (Menveo) Biggs Component 1 Meningococcal Conjug 12/09/2017 Vaccine IM (Menveo) [id number] Component 2 Pneumococcal 04/01/2018, 01/18/2018, 12/09/2017 Vaccine(13-[facility]/immunocompromised adult) Tdap Vaccine 04/01/2018, 01/18/2018, 12/09/2017 Family History Medical History Relation Name Comments Heart Disease Brother Hypertension Mother Thyroid Disease Mother Melanoma Neg Hx Relation Name Status Comments Brother Mother Social History Tobacco Use Types Packs/Day Years Used Date Former Smoker Cigars 1 5 Quit: 03/24/2003 Smokeless Tobacco: Never Used Alcohol Use Drinks/Week oz/Week Comments Yes 6 Cans of 3.6 beer Sex Assigned at Date Recorded Not on file Last Filed Vital Signs Vital Sign Reading Time Taken Blood Pressure 150/55 04/01/2018 8:45 AM CDT Pulse 57 04/01/2018 8:45 AM CDT Temperature 36.4 C (97.6 F) 04/01/2018 8:45 AM CDT Respiratory Rate 12 04/01/2018 8:45 AM CDT Oxygen Saturation 98% 04/01/2018 8:45 AM CDT Inhaled Oxygen - - Concentration Weight 76.2 kg (168 lb) 04/01/2018 12:59 PM CDT Height 180 cm (5' 10.87") 04/01/2018 12:59 PM CDT Body Mass Index 23.52 04/01/2018 12:59 PM CDT Plan of Treatment Health Maintenance Due Date Last Done Comments HEPATITIS C SCREENING 1950 PHYSICAL (COMPREHENSIVE) 1956 EXAM COLORECTAL CANCER 1999 SCREENING SHINGLES RECOMBINANT 1999 VACCINE (1 of 2) ABDOMINAL AORTIC ANEURYSM 2014 SCREENING INFLUENZA VACCINE 07/12/2018 07/01/2017 PNEUMONIA (PCV13/PPSV23) 01/18/2019 01/18/2018, 12/09/2017 VACCINES (2 of 2 - PPSV23) TETANUS VACCINE 01/19/2028 01/18/2018, 12/09/2017 PERTUSSIS VACCINE Completed 01/18/2018, 12/09/2017 Implants Implanted Type Area Entertainment Centre Manager Device Expiration Model / Identifier Date Serial / Lot Catheter 28cm 12fr Gallegos Right: C R BARD [id number] 03/11/2019 [id number] / Trifusion Straight [place] - Chest Wall [id number] N/A / Sn/A [id number] Implanted: Qty: 1 on 05/28/2017 by Christ Bain MD Results * CBC AND DIFF (04/01/2018 8:39 AM) Only the most recent of 7 results within the time period is included. Component Value Ref Range White Blood Cells [...] - 0.20 K/UL Specimen Performing Laboratory Blood [facility] [address] [place] [address] * MAGNESIUM (04/01/2018 8:39 AM) Only the most recent of 7 results within the time period is included. Component Value Ref Range Magnesium 2.2 1.6 - 2.6 mg/dL Specimen Performing Laboratory Blood [facility] [address] [place] [id number] * VITAMIN B12 (04/01/2018 8:39 AM) Component Value Ref Range Vitamin B12 380 180 - 914 PG/ML Specimen Performing Laboratory Blood [facility] [address] [place] [address] * COMPREHENSIVE METABOLIC PANEL (04/01/2018 8:39 AM) Only the most recent of 7 results within the time period is included. Component Value Ref Range Sodium 133 (L) [...] Pharmacist for questions. Specimen Performing Laboratory Blood [facility] [address] [place] [address] * MYELOID ENGRAFTMENT ANALYSIS BLD (03/04/2018 9:54 AM) Only the most recent of 2 results within the time period is included. Component Value Ref Range Myeloid Engraftment SEE ASSET PROTECTION ASSISTANT FOR REPORT Analysis BLD Specimen Performing Laboratory Blood [facility] * LYMPHOID ENGRAFTMENT ANALYSIS BLOOD (03/04/2018 9:54 AM) Only the most recent of 2 results within the time period is included. Component Value Ref Range Lymploid Engraftment SEE ASSET PROTECTION ASSISTANT FOR REPORT Analysis BLD TEST PERFORMED BY [employer] Specimen Performing Laboratory Blood [facility] * VRE SCREEN (03/04/2018 9:49 AM) Only the most recent of 2 results within the time period is included. Component Value Ref Range Battery Name VRE SCREEN Specimen Description PERIRECTAL SWAB Special Requests NONE Culture NO VRE ISOLATED Report Status FINAL 03/05/2018 Specimen Performing Laboratory Perirectal Swab [facility] [address] [place] [address] * CD4 ABSOLUTE CELL COUNT (02/18/2018 9:59 AM) Component Value Ref Range CD4 Count 187 (L) 440 - 2,160 CD4 % 33.1 28 - 63 % Specimen Performing Laboratory Blood [facility] [address] [place] [address] from Last 3 Months
--- OUTSIDE RECORDS SUMMARY | 2018-04-01 19:25 | XMS REPORT | Encounter Summary ---
Author Author [facility] Organization [facility] Address Unknown Phone Unavailable Care Team Providers Care Gas Roller Operator Name Role Phone Mirna Marques PCP Marco A Sanford MD [id number] Encounter Details Date Type Department Care Team Description [facility] En[facility] - BMT [address] Treatment [place] [address] [place] [address] [place], [place] [id number] [place] [address] [address] [place] [address] [phone] Social History Tobacco Use Types Packs/Day Years [...] as of this encounter Progress Notes * Lisa Claros RN - 04/01/2018 9:55 AM CDT Lyndon Bautista 67 y.o.male History - Day +300 MUD for MDS Today 04/01: Pt ambulatory to clinic for 10 month immunizations. VIS for each provided to patient prior to injections in both right and left deltoid. Pt tolerated injections well. Pt left clinic stable and ambulatory with an updated copy of his AVS. Lisa Claros RN 04/01/18 in this encounter Plan of Treatment Not on fileas of this encounter Visit Diagnoses Diagnosis H/O stem cell transplant (HCC) Peripheral stem cells replaced by transplant MDS (myelodysplastic syndrome), high grade (HCC) High grade myelodysplastic syndrome lesions Administered Medications Medication Order MAR Action Action Date Dose Rate Site diphtheria/tetanus/pertus(acell) booster Given 04/01/2018 0.5 mL Deltoid, (Tdap) (BOOSTRIX) injection 0.5 mL 09:50 CDT Left 0.5 mL, Intramuscular, ONCE, 1 dose, Leatha 04/01/18 at 0945, The selected vaccine is to be administered at 10 months post transplant. haemophilus B conjugate vaccine (ActHIB) Given 04/01/2018 0.5 mL Deltoid, injection 0.5 mL 09:52 CDT Left 0.5 mL, Intramuscular, ONCE, 1 dose, Leatha 04/01/18 at 0945, The selected vaccine is to be administered at 10 months post transplant. pneumococcal 13-dorothy conj vaccine Given 04/01/2018 0.5 mL Deltoid, (PF)(PCV13) (PREVNAR-13) injection 0.5 09:52 CDT Right mL 0.5 mL, Intramuscular, ONCE - UNTIL ADMIN, 1 dose, Leatha 04/01/18 at 0945, The selected vaccine is to be administered at 10 months post transplant. poliovirus (inactive) vaccine (IPV) Given 04/01/2018 0.5 mL Arm, Right (IPOL) injection 0.5 mL 10:17 CDT 0.5 mL, Subcutaneous, ONCE - UNTIL ADMIN, 1 dose, Leatha 04/01/18 at 1015, The selected vaccine is to be administered at 10 months post transplant. in this encounter
--- OUTSIDE RECORDS SUMMARY | 2018-04-01 19:25 | XMS REPORT | Encounter Summary ---
Author Author [facility] Organization [facility] Address Unknown Phone Unavailable Care Team Providers Care Supervisor Sandblaster Name Role Phone JeraldMirna PCP Marco A Sanford MD [id number] Reason for Visit * Reason Comments Heme/Onc Care Encounter Details Date Type Department Care Team Description 03/04/2018 Office Visit [facility] Brian Gudino DO H /O stem cell transplant Cancer Center - BMT Exam [address] [facility] ([facility] (Primary Dx); [address] [place] [address] 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), [place] [address] (HCC); [phone] Essential hypertension; H/O bone marrow transplant (HCC) Social History Tobacco Use Types Packs/Day Years Used Date Former Smoker Cigars 1 5 Quit: 03/24/2003 Smokeless Tobacco: Never Used Alcohol Use Drinks/Week oz/Week Comments No 6 Cans of 3.6 beer Sex Assigned at Date Recorded Not on file as of this encounter Last Filed Vital Signs Vital Sign Reading Time Taken Blood Pressure 139/63 03/04/2018 10:04 AM CDT Pulse 61 03/04/2018 10:04 AM CDT Temperature 36.9 C (98.4 F) 03/04/2018 10:04 AM CDT Respiratory Rate 14 03/04/2018 10:04 AM CDT Oxygen Saturation 97% 03/04/2018 10:04 AM CDT Inhaled Oxygen - - Concentration Weight 74.7 kg (164 lb 9.6 oz) 03/04/2018 10:04 AM CDT Height 180.3 cm (5' 10.98") 03/04/2018 10:04 AM CDT Body Mass Index 22.97 03/04/2018 10:04 AM CDT in this encounter Functional Status Functional [...] as of this encounter Progress Notes * Brian Gudino DO - 03/04/2018 10:30 AM CDT Formatting of this note may be different from the original. Date of Service: 03/04/2018 Day +272 MUD for MDS-RAEB Subjective: Here for routine post transplant follow up. Denies fever, SOB, rash or GI complaints. Staying active and is without c/o. Heme/Onc Care Reason for Visit: Follow-up post allogeneic HCT Lyndon Bautista is a 67 y.o. male History of Present Illness Date of Transplant: 06/04/2017 Transplant Type: Allogeneic Unrelated Conditioning Regimen: Bu/flu Conditioning Regimen Type: Reduced Intensity Rationale for reduced/NST regimen: age Diagnosis/Stage: MDS - RAEB-2 Disease Status at Transplant: SD (Stable Disease) Cytogenetic/Fish AT DIAGNOSIS: 02/28/2016 CTYO: 45,X,-Y[7]46,XY[13]; FISH not performed at time of diagnosis. Cyto and FISH from 09/2016 normal Stem Cell Source: Bone Marrow Graft Manipulation: Not Applicable [facility] DID: [id number] Donor Information: Age 23 , Sex male, HLA-Match: 8 of 8 HLA Antibody Screen: Negative CMV Status: Donor - Negative; Recipient - Negative Blood Type: Donor - O Positive ; Recipient - A Positive Consents / Study# / Protocol#: 8322, chemotherapy, blood, allogeneic, storage/ processing Pretransplant Coordinator: Maurilio Kilgore RN -MR: [id number] APPOINTMENT: Future Appointments Date Time Provider Department Center 04/08/2017 11:30 AM BMT FINANCIAL COORD 3 [facility] None 04/08/2017 11:50 AM Brian Gudino, DO [facility] None 04/08/2017 1:00 PM BMT EXAM LAB [facility] None REFERRING PHYSICIAN: Marco A Sanford FACILITY: [facility] CONTACT NAME: Monet PHONE: [phone] INSURANCE: Medicare/[facility] Allergies: NKA Family Hx: M lung cancer, father lupus, 1 brother pancreativc ca and MDS, 1 bros A+W 58 Medical Hx: HTN, OA, psoriasis, high cholesterol, enlarged prostate Surgical Hx: Cholecystecomy, cardiac catheterization, carpal tunnel surgery, T &A, several prostate biopsies, prostate microwave procedure Social Hx: , two daughters. History of smoking-cigars, quit in 2002 Drinks 4-5 beers daily No history recreational drug use HPI: Patient seen for hem/onc consult 04/16/2015 due to worsening leukopenia and neutropenia over the previous few months. Patient had no complaints of decreased energy/activity or increased bleeding or bruising at time of consult. Patient had surveillance office visits and labs with Dr Sanford until March 2016. BMBX performed 02/28/2016 revealed MDS RAEB2. Treatment with Dacogen started 04/07/2016. Repeat BMBX was performed 10/01/2016 after 6 cycles of Dacogen and showed results similar to previous biopsy. Referral made to BMT services by Dr Sanford after patient received 11 cycles of Dacogen. Patient wanting to wait until after his assisted before attending this consult appointment and therefore consult not scheduled until late March 2017. Timeline of Events: DATES 04/16/2015 Labs CBC: WBC 2.5, Hg 13.4, Hct 38, platelets 189 02/28/2016 BMBX BM: Findings diagnostic of MDS refractory anemia with excess blasts-2, with increased bone marrow myeloblasts at ~14% of bone marrow cellularity, significant megakaryocytic dysplasia and mild erythroid and granulocytic dysplasia. FLOW: Significantly increased immunophenotypic myeloblasts, concerning for hematologic disorder CTYO: 45,X,-Y[7]46,XY[13] 04/07/2016 Chemotherapy C1D1 Dacogen-40mg 05/05/2016 Chemotherapy C2D1 Dacogen 06/02/2016 Chemotherapy C3D1 Dacogen 07/07/2016 Chemotherapy C4D1 Dacogen 08/04/2016 Chemotherapy C5D1 Dacogen 09/08/2016 Chemotherapy C6D1 Dacogen 10/01/2016 BMBX BM: 9% myeloblasts consistent with persistent or recurrent involvement by previously diagnosed MDS. Decreased mature granulocytes and relative erythroid hyperplasia consistent with recent chemotherapy. FLOW: Increased myeloblast population is identified with an imunophenotype. No definitive or overt immunophenotypic evidence of a B-cell or T-cell lymphoma. CTYO: 46,XY FISH: Normal 10/20/2016 Chemotherapy C7D1 Dacogen 11/13/2016 Echo EF=60% 11/17/2016 Chemotherapy C8D1 Dacogen 12/15/2016 Chemotherapy C9D1 Dacogen 01/12/2017 Chemotherapy C10D1 Dacogen 02/16/2017 Chemotherapy C11D1 Dacogen 03/10/2017 Labs CBC: WBC 2.0, hg 13.0, Hct 36.3, platelets 157 Review of Systems Constitutional: no fevers and night sweats, No fatigue or weight loss HENT: No congestion, dental problem, ear discharge. Ear pain, tinnitus, facial swelling, mouth sores, postnasal discharge, rhinorrhea, sinus pressure, sore throat, trouble swallowing, or voice change Eyes: No eye discharge, redness, pain, photophobia, or visual changes CVS: No chest pain, edema, or palpitations Respiratory: No shortness of breath, wheezing, cough, hemoptysis, or chest tightness Abdomen: No abdominal pain, distension, blood in stool, hematemesis, nausea, vomiting, diarrhea, constipation, or rectal pain : No dysuria, flank pain, frequency, hematuria, urgency MSK: No arthralgias, back pain, joint swelling, myalgias, neck pain or stiffness Endocrine: No cold/ heat intolerance, polyuria, polydipsia, or polyphagia asthenia Dermatology: No pallor, rash, wound, or color changes, skin is dry Neurology: No headaches, dizziness, facial asymmetry, seizures, speech difficulty, weakness, tremors, light headedness, or syncope. Hematologic: No bruising, swelling, or adenopathy Psych: No behavior problem, confusion, mood changes, hallucinations, nervous/ anxiety, sleep disturbances, or suicidal ideation. Objective: acyclovir (ZOVIRAX) 800 mg tablet Take 1 tablet by mouth twice a day. cetirizine (ZYRTEC) 10 mg tablet Daily cyclosporine (RESTASIS) 0.05 % ophthalmic emulsion Apply 1 drop to both eyes twice daily. dapsone 100 mg tablet Take 1 tablet by mouth daily. folic acid (FOLVITE) 1 mg tablet Take 5 tablets by mouth daily. fsh/flx/prim/cur/bor/om3,6,9 5 (OMEGA 3-6-9 FATTY ACIDS PO) Take 1 capsule by mouth three times daily. hydroCHLOROthiazide (HYDRODIURIL) 25 mg tablet Take 1 tablet by mouth every 48 hours. lisinopril (PRINIVIL) 20 mg tablet Daily losartan (COZAAR) 50 mg tablet TAKE 2 TABLETS BY MOUTH DAILY metoprolol tartrate (LOPRESSOR) 25 mg tablet Take 3 tablets by mouth twice daily. naproxen sodium(+) (ALEVE) 220 mg tablet Take 220 mg by mouth twice daily. pantoprazole DR (PROTONIX) 40 mg tablet Take 1 tablet by mouth daily. traMADol (ULTRAM) 50 mg tablet Take 50 mg by mouth daily as needed for Pain. vardenafil(+) (LEVITRA) 20 mg tablet As Needed as needed for Erectile Dysfunction Vitals: 03/04/18 1004 BP: 139/63 Pulse: 61 Resp: 14 Temp: 36.9 C (98.4 F) TempSrc: Oral SpO2: 97% Weight: 74.7 kg (164 lb 9.6 oz) Height: 180.3 cm (70.98") Body mass index is 22.97 kg/m. Pain Score: Zero Pain Addressed: N/A Patient Evaluated for a Clinical Trial: Patient not eligible for a treatment trial (including not needing treatment, needs palliative care, in remission). Karnofsky Scale: 100% Normal, no complaints Physical Exam Constitutional: He is oriented to person, place, and time. Vital signs are normal. He appears well-developed and well-nourished. He is cooperative. No distress. HENT: Head: Normocephalic and atraumatic. Right Ear: External ear normal. Left Ear: External ear normal. Nose: Nose normal. Mouth/Throat: Oropharynx is clear and moist and mucous membranes are normal. No oropharyngeal exudate. Eyes: Conjunctivae and EOM are normal. Pupils are equal, round, and reactive to light. Right eye exhibits no discharge. Left eye exhibits no discharge. No scleral icterus. Neck: Normal range of motion. Neck supple. No edema present. No thyromegaly present. Cardiovascular: Normal rate and regular rhythm. Exam reveals no gallop and no friction rub. Murmur (soft systolic murmur) heard. Mild HTN Pulmonary/Chest: Effort normal and breath sounds normal. No respiratory distress. He has no wheezes. He has no rales. He exhibits no tenderness. Abdominal: Soft. Bowel sounds are normal. He exhibits no distension. There is no hepatosplenomegaly. There is no tenderness. Musculoskeletal: Normal range of motion. He exhibits no edema, tenderness or deformity. Lymphadenopathy: He has no cervical adenopathy. Neurological: He is alert and oriented to person, place, and time. He has normal strength. No cranial nerve deficit. Coordination normal. Skin: Skin is warm and dry. He is not diaphoretic. No erythema. Psychiatric: He has a normal mood and affect. His behavior is normal. Judgment and thought content normal. Cognition and memory are normal. Nursing note and vitals reviewed. CBC w/DIFF CBC with Diff Latest Ref Rng & Units 03/04/2018 02/18/2018 02/03/2018 01/18/20182017 WBC 4.5 - 11.0 K/UL 5.1 5.1 5.2 6.4 4.7 RBC 4.4 - 5.5 M/UL 2.61(L) 2.87(L) 3.16(L) 3.21(L) 3.11(L) HGB 13.5 - 16.5 GM/DL 10.9(L) 11.6(L) 12.5(L) 12.5(L) 12.1(L) HCT 40 - 50 % 31.1(L) 32.7(L) 35.6(L) 36.0(L) 34.8(L) MCV 80 - 100 FL 119.3(H) 114.1(H) 112.6(H) 112.3(H) 112.0(H) MCH 26 - 34 PG 41.7(H) 40.4(H) 39.5(H) 38.8(H) 39.0(H) MCHC 32.0 - 36.0 G/DL 35.0 35.4 35.1 34.6 34.8 RDW 11 - 15 % 15.0 14.3 13.0 11.9 12.1 PLT 150 - 400 K/UL 238 228 188 245 220 MPV 7 - 11 FL 6.7(L) 6.5(L) 6.4(L) 6.6(L) 6.5(L) NEUT 41 - 77 % 71 72 73 76 70 ANC 1.8 - 7.0 K/UL 3.70 3.70 3.90 4.90 3.30 LYMA 24 - 44 % 10(L) 11(L) 10(L) 9(L) 11(L) ALYM 1.0 - 4.8 K/UL 0.50(L) 0.60(L) 0.50(L) 0.60(L) 0.50(L) JERMAINE 4 - 12 % 14(H) 12 11 13(H) 12 AMONO 0 - 0.80 K/UL 0.70 0.60 0.60 0.80 0.60 EOSA 0 - 5 % 4 4 5 2 6(H) AEOS 0 - 0.45 K/UL 0.20 0.20 0.30 0.10 0.30 BASA 0 - 2 % 1 1 1 0 1 ABAS 0 - 0.20 K/UL 0.00 0.00 0.00 0.00 0.00 Comprehensive Metabolic Profile CMP Latest Ref Rng & Units 02/18/2018 02/03/2018 01/18/2018 01/13/2018 12/30/2017 NA 137 - 147 MMOL/L 132(L) 136(L) 133(L) 135(L) 136(L) K 3.5 - 5.1 MMOL/L 3.9 3.8 4.0 3.7 4.4 CL 98 - 110 MMOL/L 102 105 102 104 103 CO2 21 - 30 MMOL/L 27 27 28 27 26 GAP 3 - 12 3 4 3 4 7 BUN 7 - 25 MG/DL 15 14 16 12 11 CR 0.4 - 1.24 MG/DL 0.87 0.81 0.80 0.79 0.79 GLUX 70 - 100 MG/DL 133(H) 113(H) 106(H) 147(H) 103(H) CA 8.5 - 10.6 MG/DL 9.5 9.5 9.8 9.5 9.8 TP 6.0 - 8.0 G/DL 6.4 6.3 6.3 6.2 6.5 ALB 3.5 - 5.0 G/DL 4.3 4.2 4.1 3.9 4.1 ALKP 25 - 110 U/L 152(H) 135(H) 110 113(H) 102 ALT 7 - 56 U/L 90(H) 113(H) 86(H) 45 33 TBILI 0.3 - 1.2 MG/DL 1.0 0.9 0.7 0.7 0.6 GFR >60 mL/min >60 >60 >60 >60 >60 GFRAA >60 mL/min >60 >60 >60 >60 >60 Assessment and Plan: Primary Disease: MDS RAEB1 with progressive cytopenias received azacytidine, S/ P MUD male donor marrow source BUFLU conditioning Day+272. Remains in Clinical CR - Enrolled on BMT-CTN 1102. - Bone marrow 04/08 shows 40% cellular, 8% blasts, no markers on NGS, and -Y cytogenetics. - Pretransplant bone marrow: normocellular, 40% cellularity with decreased granulopoiesis and 4% blasts on morphology. Flow: 2.2% neoplastic myeloid blasts - Chimerism:. Missed d#30 chimerism, d#89=268% donor, day#60=98% donor - Day 100 BMBx: Normocellular marrow (30-40%), normal appearing trilineage hematopoiesis, and less than 1% blasts. Flow cytometry: negative. Cytogenetics was normal. Chimerism Day 100 showed 99% donor. - Day 100 immunereconstitution: IgG 563, IgA 143 and IgM 64. CD4 126 and CD8 28 - Day 100 PFT was normal - Repeat BM /10 in CR. Normal cytogenetics, - Chimerism 1/: down to 96% from 99% at Day 100. - 11/09: 100% donor Cd33, 53% donor CD3, Begin 3 month tac taper, repeat chimerism lineage specific 100% myeloid, 68% lymphoid - D#180 BM, in CR, 100% donor. - PB for repeat lineage specific chimerism 01/13: 100% Myeloid, 80% lymphoid, repeating today (03-04) Heme: - Engrafted, mild anemia, sign increased MCV, adding folate 5 mg daily empirically, transfusion independent. ID: - Afebrile. No active infections. - Continue antiinfective prophylaxis with acyclovir,and bactrim. - Slow immune reconstitution: AaI=386, CD4 konqo=752 on 09/14/17. Repeat CD4 187 (02/18). - CMV -/-, monitoring not needed. - s/p 8 mos immunizations, 10 mos in March. CVS: - Hypertension moderate and controlled. - Continue Losartan 100 mg Qday. Increase lopressor 50 mg BID 01/13. Moderate control. Recommend pt f/u with primary MD to optimize BP control. - Pretransplant 2 D Echo- normal, EF 60% Pulmonary: - Asymptomatic, PFT's normal FEN: - Replace electrolytes per BMT standard protocol. - Renal function normal. - Peripheral edema resolved. - Appetite improved. GI: - No c/o. 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 : Mild compression fracture of L1. Posterior protrusion of a fragment posterior superior vertebral body to the right of midline. This causes impression on the thecal sac. The bone marrow signal pattern of this lesion suggests an osteoporotic or traumatic compression fracture rather than a pathologic fracture. . - s/p Kyphoplasty locally with significant improvement in pain Neuro: - Peripheral neuropathy in his feet R>L. Predominantly toes of left foot and whole foot/ankle on right, tingling/numbness. He has learned to adjust, no longer affects his gait. No recent hx of falls. 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 He had f/u appointment with [facility] today (02/18), missed appt., will reschedule. Currently using Restasis for dry eyes. Psy: - Stable. present and very supportive. GVHD: No active GVHD - Previously on prednisone 09/23 through 11/04/17. GI issues resolved with B+B. Now off both - Underwent brisk taper due to falling chimerism and worsening cytopenias - Tac taper has been on hold at 0.5 mg every other day. Will discuss with MD regarding stopping tac altogether 02/18. cGVHD Some values may be hidden. Unless noted otherwise, only the newest values recorded on each date are displayed. cGVHD 01/13/18 02/18/18 Maximum Grade of Chronic Graft vs Host Disease Extensive Extensive Overall Severity of Chronic Graft vs Host Disease Moderate Mild Sclerosis of Skin No No Other Skin or Hair Involvement None None Eyes Xerophthalmia (Dry Eyes) Xerophthalmia (Dry Eyes);Other (Comments) Vision changes r/t retinal issues Mouth None None Bronchiolitis Obliterans No No Other Lung Involvement No No Gastrointestinal Tract Chronic nausea/vomiting;Abdominal pain None Liver No Yes Mild elevation in LFTs, Total bili wnl. Genitourinary Tract None None Musculoskeletal None None Thrombocytopenia No No Eosinophilia Yes No Autoantibodies No No Other Hematologic Involvement No Yes mild anemia RTC: 2 weeks for provider, labs with Dr. Sanford and 4 weeks RTC here. * Eva Orourke RN - 03/04/2018 10:30 AM CDT Date of Transplant: 06/04/2017 Day+272 Transplant Type: Allogeneic Unrelated Conditioning Regimen: Bu/flu Conditioning Regimen Type: Reduced Intensity Rationale for reduced/NST regimen: age Diagnosis/Stage: MDS - RAEB-2 Disease Status at Transplant: SD (Stable Disease) Cytogenetic/Fish AT DIAGNOSIS: 02/28/2016 CTYO: 45,X,-Y[7]46,XY[13]; FISH not performed at time of diagnosis. Cyto and FISH from 09/2016 normal Stem Cell Source: Bone Marrow Graft Manipulation: Not Applicable [facility] DID: [id number] Donor Information: Age 23 , Sex male, HLA-Match: 8 of 8 HLA Antibody Screen: Negative CMV Status: Donor - Negative; Recipient - Negative Blood Type: Donor - O Positive ; Recipient - A Positive Consents / Study# / Protocol#: 8322, chemotherapy, blood, allogeneic, storage/ processing Pretransplant Coordinator: Maurilio Kilgore RN CMV monitoring: N/A EBV monitoring: N/A Chimerism results: D+ 138 96%; 11/09 Lineage specific chimerism--myeloid 100%, lymphoid 53%, 12/09 myeloid 100%, lymphoid 68%, Day +194 100% donor; 01/13=100% myeloid, 80% lymphoid; 03/04 pending lineage specific Transfusion parameters: Standard Electrolyte replacement goal: Standard GVHD location: GI, skin Current GVHD treatment: clobetasol re- started 11/09/17 Tapers (drug and end date): Pred discontinued 11/04/17 PJP PPX: Bactrim started 06/25 PFT/spirometry Q3M, next due: PFT May 2018- OSH PFT in November with FVC 96% , FEV1 90% LTFU orders placed for one year (Labs, PFT, BMBx) - 06/05/18 Dr. Marco A Sanford ph#[phone], fx#[phone] 03/04: Patient doing well today, no signs of GVHD. Started folate today, will check B12 at next visit. Rechecking lineage specific chimerism today. Now that he's off tac ok to move visits to every two weeks alternating with Dr. Sanford locally. RTC: 2 weeks provider/lab alternating with Dr. 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 Specimen Performing Laboratory Blood [facility] [address] [place] [address] * CBC AND DIFF (04/01/2018 8:39 AM) [...] - 0.20 K/UL Specimen Performing Laboratory Blood [facility] [address] [place] [address] * MYELOID ENGRAFTMENT ANALYSIS BLD (03/04/2018 9:54 AM) Component Value Ref Range Myeloid Engraftment SEE HEDIS NURSE FOR REPORT Analysis BLD Specimen Performing Laboratory Blood [facility] * LYMPHOID ENGRAFTMENT ANALYSIS BLOOD (03/04/2018 9:54 AM) Component Value Ref Range Lymploid Engraftment SEE HEDIS NURSE FOR REPORT Analysis BLD TEST PERFORMED BY [facility] Specimen Performing Laboratory Blood [facility] in this encounter Visit Diagnoses Diagnosis H/O stem cell transplant (HCC) - Primary Peripheral stem cells replaced by transplant MDS (myelodysplastic syndrome), high grade (HCC) High grade myelodysplastic syndrome lesions Essential hypertension Unspecified essential hypertension H/O bone marrow transplant (HCC) Bone marrow replaced by transplant
--- OUTSIDE RECORDS SUMMARY | 2018-04-01 19:25 | XMS REPORT | Encounter Summary ---
Author Author [facility] Organization [facility] Address Unknown Phone Unavailable Care Team Providers Care Applied [employer] Physics Professor Name Role Phone JeraldYarielmaranda MILLER PCP Marco A Sanford MD [id number] Reason for Visit * Reason Comments Heme/Onc Care Encounter Details Date Type Department Care Team Description 03/04/[address] [facility] Brian Gudino DO H/O stem cell transplant Cancer Center - BMT Exam [address] [facility] [address] [place] [address] [place], [place] [phone] Social History Tobacco Use Types Packs/Day Years [...] on fileas of this encounter Results * MYELOID ENGRAFTMENT ANALYSIS BLD (03/04/2018 9:54 AM) Component Value Ref Range Myeloid Engraftment SEE SERVICE OFFICER FOR REPORT Analysis BLD Specimen Performing Laboratory Blood REFERENCE LAB * LYMPHOID ENGRAFTMENT ANALYSIS BLOOD (03/04/2018 9:54 AM) Component Value Ref Range Lymploid Engraftment SEE SERVICE OFFICER FOR REPORT Analysis BLD TEST PERFORMED BY [facility] Specimen Performing Laboratory Blood REFERENCE LAB * VRE SCREEN (03/04/2018 9:49 AM) Component Value Ref Range Battery Name VRE SCREEN Specimen Description PERIRECTAL SWAB Special Requests NONE Culture NO VRE ISOLATED Report Status FINAL 03/05/2018 Specimen Performing Laboratory Perirectal Swab [facility] [address] [place] [address] * MAGNESIUM (03/04/2018 9:49 AM) Component Value Ref Range Magnesium 2.0 1.6 - 2.6 mg/dL Specimen Performing Laboratory Blood [facility] [address] [place] [address] * COMPREHENSIVE METABOLIC PANEL (03/04/2018 9:49 AM) Component Value Ref Range Sodium 134 (L) 137 - 147 MMOL/L Potassium 4.1 3.5 - 5.1 MMOL/L Chloride 103 98 - 110 MMOL/L Glucose 82 70 - 100 MG/DL Blood Urea Nitrogen 15 7 - 25 MG/DL Creatinine 0.86 0.4 - 1.24 MG/DL Calcium 9.4 8.5 - 10.6 MG/DL Total Protein 6.3 6.0 - 8.0 G/DL Total Bilirubin 0.9 0.3 - 1.2 MG/DL Albumin 4.2 3.5 - 5.0 G/DL Alk Phosphatase 221 (H) 25 - 110 U/L AST (SGOT) 48 (H) 7 - 40 U/L CO2 27 21 - 30 MMOL/L ALT (SGPT) 76 (H) 7 - 56 U/L Anion Gap 4 3 - 12 eGFR Non >60 >60 [...] Pharmacist for questions. Specimen Performing Laboratory Blood [facility] [address] [place] [address] * CBC AND DIFF (03/04/2018 9:49 AM) Component Value Ref Range White Blood Cells 5.1 4.5 - 11.0 K/UL RBC 2.61 (L) 4.4 - 5.5 M/UL Hemoglobin 10.9 (L) 13.5 - 16.5 GM/DL Hematocrit 31.1 (L) 40 - 50 % MCV 119.3 (H) 80 - 100 FL MCH 41.7 (H) 26 - 34 PG MCHC 35.0 32.0 - 36.0 G/DL RDW 15.0 11 - 15 % Platelet Count 238 150 - 400 K/UL MPV 6.7 (L) 7 - 11 FL Neutrophils 71 41 - 77 % Lymphocytes 10 (L) 24 - 44 % Monocytes 14 (H) 4 - 12 % Eosinophils 4 0 - 5 % Basophils 1 0 - 2 % Absolute Neutrophil Count 3.70 1.8 - 7.0 K/UL Absolute Lymph Count 0.50 (L) 1.0 - 4.8 K/UL Absolute Monocyte Count 0.70 0 - 0.80 K/UL Absolute Eosinophil Count 0.20 0 - 0.45 K/UL Absolute Basophil Count 0.00 0 - 0.20 K/UL Specimen Performing Laboratory Blood [facility] [address] [place] [address] in this encounter Visit Diagnoses Diagnosis H/O stem cell transplant (HCC) Peripheral stem cells replaced by transplant
--- OUTSIDE RECORDS SUMMARY | 2018-04-01 19:25 | XMS REPORT | Encounter Summary ---
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), high grade [phone] ([facility]); Essential hypertension; Fatigue due to exposure, subsequent encounter; H/O bone marrow transplant (HCC); GVHD (graft versus host disease) ([facility]); Nausea; Drug-induced polyneuropathy ([facility]); Anorexia; Hyponatremia Social History Tobacco Use Types Packs/Day Years [...] CDT Inhaled Oxygen - - Concentration Weight 76.5 kg (168 lb 9.6 oz) 04/01/2018 8:45 AM CDT Height 180.3 cm (5' 10.98") 04/01/2018 8:45 AM CDT Body Mass Index 23.53 04/01/2018 8:45 AM CDT in this encounter Functional Status [...] as of this encounter Progress Notes * Theresa Gutiérrez APRN - 04/01/2018 9:00 AM CDT Formatting of this note may be different from the original. Date of Service: 04/01/2018 Day +300 MUD for MDS-RAEB Subjective: Here for routine post transplant follow up. Reports he has been feeling bad since stopping his Entocort with persistent sour stomach, nausea and no appetite. Occasional diarrhea. He wants to go back on the Entocort. Denies fever, SOB, or rash. Back pain comes and goes, but overall, better since Kyphoplasty. No chief complaint on file. Reason for Visit: Follow-up post allogeneic HCT [...] Source: Bone Marrow Graft Manipulation: Not Applicable [facility] DID: [id number] Donor Information: Age 23 , Sex male, HLA-Match: 8 of 8 HLA Antibody Screen: Negative CMV Status: Donor - Negative; Recipient - Negative Blood Type: Donor - O Positive ; Recipient - A Positive Consents / Study# / Protocol#: 8322, chemotherapy, blood, allogeneic, storage/ processing Pretransplant Coordinator: Maurilio Kilgore RN -MR: [id number] APPOINTMENT: Future Appointments Date Time Provider Department Center 04/08/2017 11:30 AM BMT FINANCIAL COORD 3 [facility] None 04/08/2017 11:50 AM Brian Gudino, DO [facility] None 04/08/2017 1:00 PM BMT EXAM LAB [facility] None REFERRING PHYSICIAN: Marco A Sanford FACILITY: [facility] CONTACT NAME: Monet PHONE: [phone] INSURANCE: Medicare/[facility] Allergies: NKA Family Hx: M lung cancer, [...] Patient wanting to wait until after his longterm before attending this consult appointment and therefore [...] 36.3, platelets 157 Review of Systems Constitutional: Positive for appetite change and fatigue. Negative for chills, diaphoresis and fever. HENT: Negative for congestion, mouth sores, rhinorrhea, sore throat and trouble swallowing. Eyes: Positive for visual disturbance. Negative for pain and redness. 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 Cardiovascular: Positive for leg swelling (minimal). Gastrointestinal: Positive for abdominal pain and nausea. Negative for constipation and vomiting. Diarrhea: occasional. Genitourinary: Negative for difficulty urinating, dysuria and hematuria. Musculoskeletal: Positive for back pain. Negative for arthralgias and myalgias. Skin: Negative for rash. Neurological: Positive for weakness and numbness. Negative for dizziness, light- headedness and headaches. Hematological: Does not bruise/bleed easily. Psychiatric/Behavioral: Negative for confusion and sleep disturbance. The patient is not nervous/anxious. Objective: acyclovir (ZOVIRAX) 800 mg tablet Take [...] As Needed as needed for Erectile Dysfunction There were no vitals filed for this visit. There is no height or weight on file to calculate BMI. Pain Addressed: N/A Patient Evaluated for a [...] friction rub. Murmur (soft systolic murmur) heard. Pt reports always hypertensive in clinic, but BP runs 120/60s at home. Pulmonary/Chest: Effort normal and breath sounds normal. No respiratory distress. He has no wheezes. He has no rales. He exhibits no tenderness. Abdominal: Soft. Bowel sounds are normal. He exhibits no distension. There is no hepatosplenomegaly. There is no tenderness. Musculoskeletal: Normal range of motion. He exhibits edema (Trace to 1+ bilateral LEs). He exhibits no tenderness or deformity. Lymphadenopathy: He has no [...] with Diff Latest Ref Rng & Units 04/01/2018 03/04/2018 02/18/2018 02/03/201801/18 WBC 4.5 - 11.0 K/UL 5.3 5.1 5.1 5.2 6.4 RBC 4.4 - 5.5 M/UL 2.99(L) 2.61(L) 2.87(L) 3.16(L) 3.21(L) HGB 13.5 - 16.5 GM/DL 12.6(L) 10.9(L) 11.6(L) 12.5(L) 12.5(L) HCT 40 - 50 % 36.0(L) 31.1(L) 32.7(L) 35.6(L) 36.0(L) MCV 80 - 100 FL 120.3(H) 119.3(H) 114.1(H) 112.6(H) 112.3(H) MCH 26 - 34 PG 42.0(H) 41.7(H) 40.4(H) 39.5(H) 38.8(H) MCHC 32.0 - 36.0 G/DL 34.9 35.0 35.4 35.1 34.6 RDW 11 - 15 % 12.8 15.0 14.3 13.0 11.9 PLT 150 - 400 K/UL 231 238 228 188 245 MPV 7 - 11 FL 6.6(L) 6.7(L) 6.5(L) 6.4(L) 6.6(L) NEUT 41 - 77 % 67 71 72 73 76 ANC 1.8 - 7.0 K/UL 3.60 3.70 3.70 3.90 4.90 LYMA 24 - 44 % 11(L) 10(L) 11(L) 10(L) 9(L) ALYM 1.0 - 4.8 K/UL 0.60(L) 0.50(L) 0.60(L) 0.50(L) 0.60(L) JERMAINE 4 - 12 % 15(H) 14(H) 12 11 13(H) AMONO 0 - 0.80 K/UL 0.80 0.70 0.60 0.60 0.80 EOSA 0 - 5 % 6(H) 4 4 5 2 AEOS 0 - 0.45 K/UL 0.30 0.20 0.20 0.30 0.10 BASA 0 - 2 % 1 1 1 1 0 ABAS 0 - 0.20 K/UL 0.00 0.00 0.00 0.00 0.00 Comprehensive Metabolic Profile CMP Latest Ref Rng & Units 04/01/2018 03/04/2018 02/18/2018 02/03/2018 01/18/2018 NA 137 - 147 MMOL/L 133(L) 134(L) 132(L) 136(L) 133(L) K 3.5 - 5.1 MMOL/L 4.1 4.1 3.9 3.8 4.0 CL 98 - 110 MMOL/L 102 103 102 105 102 CO2 21 - 30 MMOL/L 26 27 27 27 28 GAP 3 - 12 5 4 3 4 3 BUN 7 - 25 MG/DL 13 15 15 14 16 CR 0.4 - 1.24 MG/DL 0.87 0.86 0.87 0.81 0.80 GLUX 70 - 100 MG/DL 99 82 133(H) 113(H) 106(H) CA 8.5 - 10.6 MG/DL 9.3 9.4 9.5 9.5 9.8 TP 6.0 - 8.0 G/DL 6.8 6.3 6.4 6.3 6.3 ALB 3.5 - 5.0 G/DL 4.3 4.2 4.3 4.2 4.1 ALKP 25 - 110 U/L 228(H) 221(H) 152(H) 135(H) 110 ALT 7 - 56 U/L 70(H) 76(H) 90(H) 113(H) 86(H) TBILI 0.3 - 1.2 MG/DL 0.7 0.9 1.0 0.9 0.7 GFR >60 mL/min >60 >60 >60 >60 >60 GFRAA >60 mL/min >60 >60 >60 >60 >60 Assessment and Plan: Primary Disease: MDS RAEB1 with progressive cytopenias received azacytidine, S/ P MUD male donor marrow source BUFLU conditioning Day+300. Remains in Clinical CR - Enrolled on BMT-CTN 1102. - Bone marrow 04/08 shows 40% cellular, 8% blasts, no markers on NGS, and -Y cytogenetics. - Pretransplant bone marrow: normocellular, 40% cellularity with decreased granulopoiesis and 4% blasts on morphology. Flow: 2.2% neoplastic myeloid blasts - Chimerism:. Missed d#30 chimerism, d#10=428% donor, day#60=98% donor - Day 100 BMBx: Normocellular marrow (30-40%), normal appearing trilineage hematopoiesis, and less than 1% blasts. Flow cytometry: negative. Cytogenetics was normal. Chimerism Day 100 showed 99% donor. - Day 100 immunereconstitution: IgG 563, IgA 143 and IgM 64. CD4 126 and CD8 28 - Day 100 PFT was normal - Repeat BM 10/21 in CR. Normal cytogenetics, - Chimerism 10/21: down to 96% from 99% at Day 100. - 11/09: 100% donor Cd33, 53% donor CD3, Begin 3 month tac taper, repeat chimerism lineage specific 100% myeloid, 68% lymphoid - D#180 BM, in CR, 100% donor. - PB lineage specific chimerism 01/13: 100% Myeloid, 80% lymphoid - PB lineage specific chimerism 03/04: 100% Myeloid, 83% Lymphoid Heme: - Engrafted. Anemia significantly improved since starting Folate (increased MCV) . Platelets normal. Transfusion independent. ID: - Afebrile. No active infections. - Continue antiinfective prophylaxis with acyclovir,and bactrim. - Slow immune reconstitution: QoI=154, CD4 audbp=885 on 09/14/17. Repeat CD4 187 (02/18). - CMV -/-, monitoring not needed. - 10 mos immunizations today (04/01). CVS: - Hypertension, always higher in clinic than at home. - Continue Losartan 100 mg Qday. Increase lopressor 50 mg BID 01/13. - Pretransplant 2 D Echo- normal, EF 60% Pulmonary: - Asymptomatic, PFT's normal FEN: - Replace electrolytes per BMT standard protocol. No supplements needed. - Renal function normal. - Peripheral edema trace to 1+ bilateral LEs. - Appetite poor since stopping Entocort. Plan to resume today (04/01). GI: - 04/01; reports persistent sour stomach, nausea, and poor appetite since stopping Entocort 03/04. 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 Follows with [facility]. Currently using Restasis for dry eyes. Psy: - Stable. present and very supportive. GVHD: GI active - 04/01; Presents with flare in nausea, sour stomach and poor appetite since stopping Entocort 03/04. Will resume today (04/01). If nausea does NOT improve will get scopes and may need to consider Prednisone. - 03/04; Previously on prednisone 09/23 through 11/04/17. GI [...] each date are displayed. cGVHD 01/13/18 02/18/18 04/01/18 Maximum Grade of Chronic Graft vs Host Disease Extensive Extensive Extensive Overall Severity of Chronic Graft vs Host Disease Moderate Mild Moderate Sclerosis of Skin No No No Other Skin or Hair Involvement None None None Eyes Xerophthalmia (Dry Eyes) Xerophthalmia (Dry Eyes);Other (Comments) Vision changes r/t retinal issues Xerophthalmia (Dry Eyes) Mouth None None None Bronchiolitis Obliterans No No No Other Lung Involvement No No No Gastrointestinal Tract Chronic nausea/vomiting;Abdominal pain None Abdominal pain;Cramping;Other (Comments) Nausea/Sour stomach, poor appetite. No emesis. Liver No Yes Mild elevation in LFTs, Total bili wnl. No Genitourinary Tract None None None Musculoskeletal None None None Thrombocytopenia No No No Eosinophilia Yes No No Autoantibodies No No No Other Hematologic Involvement No Yes mild anemia No RTC: Alternates visits every [address] Sanford and [facility]. Pt has been instructed to call if nausea NOT improved in 2 weeks. Theresa Gutiérrez APRN in this encounter Plan of Treatment Name Priority Associated Diagnoses Order Schedule CBC AND DIFF Routine S/P bone marrow Expected: 04/29/2018 transplant ([facility]) (Approximate), Expires: 04/29/2019 COMPREHENSIVE METABOLIC PANEL Routine S/P bone marrow Expected: 2017 transplant ([facility]) (Approximate), Expires: 04/29/2019 MAGNESIUM Routine S/P bone marrow Expected: 04/29/2018 transplant ([facility]) (Approximate), Expires: 04/29/2019 as of this encounter Visit Diagnoses Diagnosis S/P bone marrow transplant ([facility]) - Primary Bone marrow replaced by transplant MDS (myelodysplastic syndrome), high grade (HCC) High grade myelodysplastic syndrome lesions Essential hypertension Unspecified essential hypertension Fatigue due to exposure, subsequent encounter H/O bone marrow transplant ([facility]) Bone marrow replaced by transplant 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
--- OUTSIDE RECORDS SUMMARY | 2018-04-01 19:25 | XMS REPORT | Encounter Summary ---
Author Author [facility] Organization [facility] Address Unknown Phone Unavailable Care Team Providers Care Tennis Racket Repairer Name Role Phone Mirna Marques PCP Marco A Sanford MD [phone] Reason for Visit * Reason Comments Heme/Onc Care Encounter Details Date Type Department Care Team Description 02/18/2018 Nurse Only [facility] Theresa Gutiérrez APRN MDS ( myelodysplastic Cancer Center - BMT Exam [address] syndrome), high grade [address] ([facility]); [address] [place] [address] [place] [address] transplant ([facility]) [phone] Social History Tobacco Use Types Packs/Day Years [...] on fileas of this encounter Results * CD4 ABSOLUTE CELL COUNT (02/18/2018 9:59 AM) Component Value Ref Range CD4 Count 187 (L) 440 - 2,160 CD4 % 33.1 28 - 63 % Specimen Performing Laboratory Blood [facility] [address] [place] [address] * MAGNESIUM (02/18/2018 9:59 AM) Component Value Ref Range Magnesium 2.0 1.6 - 2.6 mg/dL Specimen Performing Laboratory Blood [facility] [address] [place] [address] * COMPREHENSIVE METABOLIC PANEL (02/18/2018 9:59 AM) Component Value Ref Range Sodium 132 (L) 137 - 147 MMOL/L Potassium 3.9 3.5 - 5.1 MMOL/L Chloride 102 98 - 110 MMOL/L Glucose 133 (H) 70 - 100 MG/DL Blood Urea Nitrogen 15 7 - 25 MG/DL Creatinine 0.87 0.4 - 1.24 MG/DL Calcium 9.5 8.5 - 10.6 MG/DL Total Protein 6.4 6.0 - 8.0 G/DL Total Bilirubin 1.0 0.3 - 1.2 MG/DL Albumin 4.3 3.5 - 5.0 G/DL Alk Phosphatase 152 (H) 25 - 110 U/L AST (SGOT) 54 (H) 7 - 40 U/L CO2 27 21 - 30 MMOL/L ALT (SGPT) 90 (H) 7 - 56 U/L Anion Gap 3 3 - 12 eGFR Non >60 >60 [...] Pharmacist for questions. Specimen Performing Laboratory Blood [facility] [address] [place] [address] * CBC AND DIFF (02/18/2018 9:59 AM) Component Value Ref Range White Blood Cells 5.1 4.5 - 11.0 K/UL RBC 2.87 (L) 4.4 - 5.5 M/UL Hemoglobin 11.6 (L) 13.5 - 16.5 GM/DL Hematocrit 32.7 (L) 40 - 50 % MCV 114.1 (H) 80 - 100 FL MCH 40.4 (H) 26 - 34 PG MCHC 35.4 32.0 - 36.0 G/DL RDW 14.3 11 - 15 % Platelet Count 228 150 - 400 K/UL MPV 6.5 (L) 7 - 11 FL Neutrophils 72 41 - 77 % Lymphocytes 11 (L) 24 - 44 % Monocytes 12 4 - 12 % Eosinophils 4 0 - 5 % Basophils 1 0 - 2 % Absolute Neutrophil Count 3.70 1.8 - 7.0 K/UL Absolute Lymph Count 0.60 (L) 1.0 - 4.8 K/UL Absolute Monocyte Count 0.60 0 - 0.80 K/UL Absolute Eosinophil Count 0.20 0 - 0.45 K/UL Absolute Basophil Count 0.00 0 - 0.20 K/UL Specimen Performing Laboratory Blood [facility] [address] [place] [address] in this encounter Visit Diagnoses Diagnosis MDS (myelodysplastic syndrome), 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
--- OUTSIDE RECORDS SUMMARY | 2018-04-01 19:25 | XMS REPORT | Encounter Summary ---
Author Author [facility] Organization [facility] Address Unknown Phone Unavailable Care Team Providers Care Drafter Directional Survey Name Role Phone Mirna Marques DO PCP Marco A Sanford MD [phone] Reason for Visit * Reason Comments Medication Question Encounter Details Date Type Department Care Team Description 03/10/2018 Telephone [facility] Theresa Lopez RN Medication Question Cancer Center - [facility] Exam [address] [address] [place] [address] Social History Tobacco Use Types Packs/Day Years [...] impairment: No 06/25/2017 as of this encounter Miscellaneous Notes * Telephone Encounter - Theresa Lopez RN - 03/10/2018 11:37 AM CDT called upset pt's Budesonide was refused by the clinic to refill. Read last note from Dr. Gudino who stated in note pt is off B and B. Explained to that Dr. Gudino said in his note pt is off Beclomethasone and Budesonide. stated ok we will see what will happen. That is an expensive medication.Note on 02/18/18 Aguila LORENZN d/c both Beclomethasone and Budesonide. in this encounter Plan of Treatment Not on fileas of this encounter Visit Diagnoses Not on filein this encounter
--- OUTSIDE RECORDS SUMMARY | 2018-04-01 19:25 | XMS REPORT | Encounter Summary ---
Author Author [facility] Organization [facility] Address Unknown Phone Unavailable Care Team Providers Care Fringe Maker Name Role Phone Jerald Mirna PCP Marco A Sanford MD [phone] Reason for Visit * Reason Comments Medication Refill Encounter Details Date Type Department Care Team Description 03/06/2018 Refill [facility] Brian Gudino DO Cancer Center - BMT Exam [address] [place] [address] [place] [address] [phone] Social History Tobacco Use Types Packs/Day Years [...]
--- OUTSIDE RECORDS SUMMARY | 2018-04-01 19:25 | XMS REPORT | Encounter Summary ---
Author Author [facility] Organization [facility] Address Unknown Phone Unavailable Care Team Providers Care Metalizer Name Role Phone MarquesMirna garnett PCP Marco A Sanford MD [phone] Reason for Visit * Reason Comments Appointment Encounter Details Date Type Department Care Team Description 02/24/2018 Telephone [facility] Mario Bhagat MD Appointment Physicians - [address] Ophthalmology [place], [place] [id number] [address] [facility] [phone] [address] [place] [address] Social History Tobacco Use Types Packs/Day Years [...] encounter Miscellaneous Notes * Telephone Encounter - Bibiana Cardenas COA - 02/24/2018 10:53 AM CDT Patient was originally scheduled for [facility] retina clinic on February 18. Due to clinic running behind, patient was unable to stay for the appointment. Apologies communicated to patient regarding his wait time and lack of communication extended to him and his in the main waiting room. Patient will reconsider Re-scheduling his retina appointment with Dr. Bhagat once he has spoken to his regarding his upcoming trips to [place] and Oncology clinic. Patient is to call our clinic to schedule with call center or ask to speak with Bibiana to assist. in this encounter Plan of Treatment Not on fileas of this encounter Visit Diagnoses Not on filein this encounter
--- OUTSIDE RECORDS SUMMARY | 2018-04-01 19:25 | XMS REPORT | Encounter Summary ---
Author Author [facility] Organization [facility] Address Unknown Phone Unavailable Care Team Providers Care Electronic Bench Technician Name Role Phone MarquesMirna garnett PCP Marco A Sanford MD [phone] Reason for Visit * Reason Comments Heme/Onc Care Encounter Details Date Type Department Care Team Description 02/18/2018 Office Visit [facility] Theresa Gutiérrez APRN H/ O stem cell transplant Cancer Center - BMT Exam [address] (HCC) (Primary Dx); [address] [place] [address] MDS (myelodysplastic [address] [place] [address] syndrome), [place] [address] (HCC); [phone] Essential hypertension; Fatigue due to exposure, subsequent encounter; Drug-induced polyneuropathy (HCC); H/O bone marrow transplant (HCC); 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); 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 Social History Tobacco Use Types Packs/Day Years Used Date Former Smoker Cigars 1 5 Quit: 03/24/2003 Smokeless Tobacco: Never Used Alcohol Use Drinks/Week oz/Week Comments No 6 Cans of 3.6 beer Sex Assigned at Date Recorded Not on file as of this encounter Last Filed Vital Signs Vital Sign Reading Time Taken Blood Pressure 144/59 02/18/2018 10:03 AM CDT Pulse 65 02/18/2018 10:03 AM CDT Temperature 36.4 C (97.6 F) 02/18/2018 10:03 AM CDT Respiratory Rate 16 02/18/2018 10:03 AM CDT Oxygen Saturation 97% 02/18/2018 10:03 AM CDT Inhaled Oxygen - - Concentration Weight 73.5 kg (162 lb) 02/18/2018 10:03 AM CDT Height 180.3 cm (5' 10.98") 02/18/2018 10:03 AM CDT Body Mass Index 22.6 02/18/2018 10:03 AM CDT in this encounter Functional Status [...] as of this encounter Progress Notes * Candice Funes, JACI - 02/18/2018 10:30 AM CDT Discontinued from Oral Oncology Pharmacy Program due to Completion of Therapy Lyndon Bautista has discontinued taking tacrolimus due to completion of therapy. No further follow up is needed with the patient at this time, so they have been removed from the Oral Oncology Patient Management Program. Candice Funes PHARMD Clinical Pharmacist 02/18/18 * Arabella Orourke, RN - 02/18/2018 10:30 AM CDT Date of Transplant: 06/04/2017 Day+258 Transplant Type: Allogeneic Unrelated Conditioning Regimen: Bu/flu Conditioning Regimen Type: Reduced Intensity Rationale for reduced/NST regimen: age Diagnosis/Stage: MDS - RAEB-2 Disease Status at Transplant: SD (Stable Disease) Cytogenetic/Fish AT DIAGNOSIS: 02/28/2016 CTYO: 45,X,-Y[7]46,XY[13]; FISH not performed at time of diagnosis. Cyto and FISH from 09/2016 normal Stem Cell Source: Bone Marrow Graft Manipulation: Not Applicable [facility] DID: [id number] Donor Information: Age 23 , Sex male, [...] myeloid 100%, lymphoid 68%, Day +194 100% donor Transfusion parameters: Standard Electrolyte replacement goal: Standard GVHD location: GI, skin Current GVHD treatment: clobetasol re- started 11/09/17 Tapers (drug and end date): Pred discontinued 11/04/17 PJP PPX: Bactrim started 06/25 PFT/spirometry Q3M, next due: February 2018 Spirometry, PFT May 2018- OSH PFT in November with FVC 96%, FEV1 90% LTFU orders placed for one year (Labs, PFT, BMBx) - 06/05/18 Dr. Marco A De Leon ph#[phone], fx#[phone] 02/18: Patient doing well, no signs of GVHD. LFTs still slightly elevated. CD4 count pending today. Instructed patient to stop tacrolimus. RTC: 2 weeks provider, lab (cbc,cmp,mag,vre) 03/04 MD, labs * Theresa Gutiérrez APRN - 02/18/2018 10:30 AM CDT Formatting of this note may be different from the original. Date of Service: 02/18/2018 Day +258 MUD for MDS-RAEB Subjective: Here for routine post transplant follow up. Denies fever, SOB, rash or GI complaints. Still has mild fatigue and vision changes d/t retinal issues, he has f/u with [facility] today. Pt asking if he can discontinue the corn oil that he is currently taking twice a day since he is not having any GI distress? Heme/Onc Care Reason for Visit: Follow-up post [...] Source: Bone Marrow Graft Manipulation: Not Applicable [facility] DID: [id number] Donor Information: Age 23 , Sex male, HLA-Match: 8 of 8 HLA Antibody Screen: Negative CMV Status: Donor - Negative; Recipient - Negative Blood Type: Donor - O Positive ; Recipient - A Positive Consents / Study# / Protocol#: 8322, chemotherapy, blood, allogeneic, storage/ processing Pretransplant Coordinator: Maurilio Kilgore RN -MR: [id number] APPOINTMENT: Future Appointments Date Time Provider Department Center 04/08/2017 11:30 AM BMT FINANCIAL COORD 3 BMTEXM None 04/08/2017 11:50 AM Brian Gudino, BMTEXM None 04/08/2017 1:00 PM BMT EXAM LAB BMT[facility] None REFERRING PHYSICIAN: Marco A Sanford FACILITY: [facility] CONTACT NAME: Monet PHONE: [phone] INSURANCE: Medicare/[facility] Allergies: NKA [...] Patient wanting to wait until after his [place] [facility] facility before attending this consult appointment and therefore [...] 157 Review of Systems Constitutional: Positive for fatigue. Negative for activity change, appetite change, chills, diaphoresis, fever and unexpected weight change. HENT: Negative for congestion, mouth sores, rhinorrhea, sore throat and trouble swallowing. Eyes: Positive for visual disturbance. Negative for pain. Respiratory: Negative for cough and shortness of breath. Cardiovascular: Negative for leg swelling. Gastrointestinal: Negative for abdominal pain, constipation, diarrhea and nausea. Genitourinary: Negative for difficulty urinating and dysuria. Musculoskeletal: Positive for back pain (improved since kyphoplasty). Negative for arthralgias. Skin: Negative for rash. Neurological: Positive for weakness (improving) and numbness (RLE foot/calf, LLE toes). Negative for light-headedness and headaches. Hematological: Does not bruise/bleed easily. Psychiatric/Behavioral: Negative for confusion and sleep disturbance. The patient is not nervous/anxious. Objective: acyclovir (ZOVIRAX) 800 mg tablet Take 1 tablet by mouth twice a day. Beclomethasone Dipropionate in [place] Oil 2mg/ml solution Take 1 mL by mouth twice daily. budesonide (ENTOCORT EC) 3 mg capsule Take 1 capsule by mouth twice daily. cyclosporine (RESTASIS) 0.05 % ophthalmic emulsion Apply 1 drop to both eyes twice daily. dapsone 100 mg tablet Take 1 tablet by mouth daily. losartan (COZAAR) 50 mg tablet TAKE 2 TABLETS BY MOUTH DAILY metoprolol tartrate (LOPRESSOR) 25 mg tablet Take 3 tablets by mouth twice daily. pantoprazole DR (PROTONIX) 40 mg tablet Take 1 tablet by mouth daily. tacrolimus (PROGRAF) 0.5 mg capsule Take 1 capsule by mouth every 48 hours. Taper held 01/18/18 traMADol (ULTRAM) 50 mg tablet Take 50 mg by mouth daily as needed for Pain. There were no vitals filed for this visit. There is no height or weight on file to calculate BMI. Pain Addressed: N/A Patient Evaluated for a Clinical Trial: Patient not eligible for a treatment trial (including not needing treatment, needs palliative care, in remission). Karnofsky Scale: 90% Able to carry on normal activity; minor signs of disease Physical Exam Constitutional: He is oriented to [...] friction rub. Murmur (soft systolic murmur) heard. HTN Pulmonary/Chest: Effort normal and breath sounds [...] with Diff Latest Ref Rng & Units 02/18/2018 02/03/2018 01/18/2018 01/13/20182017 WBC 4.5 - 11.0 K/UL 5.1 5.2 6.4 4.7 6.2 RBC 4.4 - 5.5 M/UL 2.87(L) 3.16(L) 3.21(L) 3.11(L) 3.24(L) HGB 13.5 - 16.5 GM/DL 11.6(L) 12.5(L) 12.5(L) 12.1(L) 12.5(L) HCT 40 - 50 % 32.7(L) 35.6(L) 36.0(L) 34.8(L) 36.5(L) MCV 80 - 100 FL 114.1(H) 112.6(H) 112.3(H) 112.0(H) 112.5(H) MCH 26 - 34 PG 40.4(H) 39.5(H) 38.8(H) 39.0(H) 38.6(H) MCHC 32.0 - 36.0 G/DL 35.4 35.1 34.6 34.8 34.3 RDW 11 - 15 % 14.3 13.0 11.9 12.1 13.4 PLT 150 - 400 K/UL 228 188 245 220 237 MPV 7 - 11 FL 6.5(L) 6.4(L) 6.6(L) 6.5(L) 6.7(L) NEUT 41 - 77 % 72 73 76 70 74 ANC 1.8 - 7.0 K/UL 3.70 3.90 4.90 3.30 4.60 LYMA 24 - 44 % 11(L) 10(L) 9(L) 11(L) 8(L) ALYM 1.0 - 4.8 K/UL 0.60(L) 0.50(L) 0.60(L) 0.50(L) 0.50(L) JERMAINE 4 - 12 % 12 11 13(H) 12 13(H) AMONO 0 - 0.80 K/UL 0.60 0.60 0.80 0.60 0.80 EOSA 0 - 5 % 4 5 2 6(H) 4 AEOS 0 - 0.45 K/UL 0.20 0.30 0.10 0.30 0.30 BASA 0 - 2 % 1 1 0 1 1 ABAS 0 - 0.20 K/UL 0.00 [...] MUD male donor marrow source BUFLU conditioning Day+258. - Enrolled on BMT-CTN 1102. - Bone marrow 04/08 shows 40% cellular, 8% blasts, no markers on NGS, and -Y cytogenetics. - Pretransplant bone marrow: normocellular, 40% cellularity with decreased granulopoiesis and 4% blasts on morphology. Flow: 2.2% neoplastic myeloid blasts - Chimerism:. Missed d#30 chimerism, d#63=581% donor, day#60=98% donor - Day 100 BMBx: [...] specific chimerism 01/13: 100% Myeloid, 80% lymphoid Heme: - Engrafted, mild anemia, transfusion independent. ID: - Afebrile. No active infections. - Continue antiinfective prophylaxis with acyclovir,and bactrim. - Slow immune reconstitution: QkG=408, CD4 laazr=278 on 09/14/17. Repeating CD4 count today (02/18). - CMV -/-, monitoring not needed. [...] resolved. - Appetite improved. GI: - No further nausea or anorexia with addition of B&B 01/13. Currently taking Beclomethasone BID, will dc today (02/18). - GERD- heart burn, on pantoprazole Skin: - No rash MSK: - Intermittent [...] poss r/t GVHD involving his retina. He has f/u appointment with [facility] today (02/18). Currently using Restasis for dry eyes. Psy: - Stable. present and very supportive. GVHD: - Previously on prednisone 09/23 through 11/04/17. GI issues resolved with B+B. Beclamethasone dc'd 02/18. - Underwent brisk taper due to falling chimerism and worsening cytopenias - Tac taper has been on hold at 0.5 mg every other day. Will discuss with MD regarding stopping tac altogether 02/18. cGVHD Some values may be hidden. Unless noted otherwise, only the newest values recorded on each date are displayed. cGVHD 01/13/18 Maximum Grade of Chronic Graft vs Host Disease Extensive Overall Severity of Chronic Graft vs Host Disease Moderate Sclerosis of Skin No Other Skin or Hair Involvement None Eyes Xerophthalmia (Dry Eyes) Mouth None Bronchiolitis Obliterans No Other Lung Involvement No Gastrointestinal Tract Chronic nausea/vomiting;Abdominal pain Liver No Genitourinary Tract None Musculoskeletal None Thrombocytopenia No Eosinophilia Yes Autoantibodies No Other Hematologic Involvement No RTC: 2 weeks for provider, labs. Theresa Gutiérrez APRN in this encounter Miscellaneous Notes * Addendum Note - Arabella Orourke RN - 02/18/2018 10:30 AM CDT Addended by: ARABELLA OROURKE on: 02/18/2018 03:40 PM Modules accepted: Orders in this encounter Plan of Treatment Not on fileas of this encounter Results * VRE SCREEN (03/04/2018 9:49 AM) Component Value Ref Range Battery Name VRE SCREEN Specimen Description PERIRECTAL SWAB Special Requests NONE Culture NO VRE ISOLATED Report Status FINAL 03/05/2018 Specimen Performing Laboratory Perirectal Swab [facility] [address] [place] [address] * MAGNESIUM (03/04/2018 9:49 AM) Component Value Ref Range Magnesium 2.0 1.6 - 2.6 mg/dL Specimen Performing Laboratory Blood [facility] [address] [place] [address] * COMPREHENSIVE METABOLIC PANEL (03/04/2018 9:49 AM) [...] Pharmacist for questions. Specimen Performing Laboratory Blood [facility] [address] [place] [address] * CBC AND DIFF (03/04/2018 9:49 AM) [...] 0.20 K/UL Specimen Performing Laboratory Blood [facility] [address] [place] [address] in this encounter Visit Diagnoses Diagnosis H/O stem cell transplant (HCC) - Primary Peripheral stem cells replaced by transplant MDS (myelodysplastic syndrome), high grade (HCC) High grade myelodysplastic syndrome lesions Essential hypertension Unspecified essential hypertension Fatigue due to exposure, subsequent encounter 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
--- OUTSIDE RECORDS SUMMARY | 2018-04-01 19:25 | XMS REPORT | Encounter Summary ---
Author Author [facility] Organization [facility] Address Unknown Phone Unavailable Care Team Providers Care Market Consultant Name Role Phone Mirna Marques DO PCP Marco A Sanford MD [id number] Reason for Visit * Reason Comments Nausea lack of appetite along with Nausea Encounter Details Date Type Department Care Team Description 03/29/2018 Telephone [facility] Theresa Lopez RN Nausea (lack of appetite Cancer Center - BMT Exam along with Nausea) [address] [facility] [place] [address] Social History Tobacco Use Types Packs/Day Years [...] Telephone Encounter - Theresa Lopez RN - 03/29/2018 12:49 PM CDT Pt called and wants to go back on Budesonide due to lack of appetite and nausea on and off. Per Dr. Reynoso pt is to stay off of Budesonide due to donor cells showing on recent tests. Stated to explain to pt and to see what he needs for nausea. Explained Budesonide per Dr. Reynoso may allow some of his own cells to come out and on his recent tests showed a few of his own cells showed in his chimerism test and he needs to be 100% donor. He verbalizied understanding. Pt then said he has Ondansetron and will use to fight nausea and help him eat. He returns to clinic on 04/01/18. in this encounter Plan of Treatment Not on fileas of this encounter Visit Diagnoses Not on filein this encounter
--- OUTSIDE RECORDS SUMMARY | 2018-04-01 19:26 | XMS REPORT | Encounter Summary ---
Author Author [facility] Organization [facility] Address Unknown Phone Unavailable Care Team Providers Care Tax Analyst Name Role Phone MarquesMirna DO PCP Marco A Sanford MD [phone] Encounter Details Date Type Department Care Team Description 01/15/2018 Orders Only [facility] Stefanie Borjas RN H/ O stem cell transplant Cancer Center - BMT Exam (HCC) (Primary Dx) [address] [facility] [address] [place] [address] Social History Tobacco Use Types Packs/Day Years [...] on fileas of this encounter Results * MAGNESIUM (01/18/2018 11:09 AM) Component Value Ref Range Magnesium 2.0 1.6 - 2.6 mg/dL Specimen Performing Laboratory Blood [facility] [address] [place] [id number] * COMPREHENSIVE METABOLIC PANEL (01/18/2018 11:09 AM) Component Value Ref Range Sodium 133 (L) 137 - 147 MMOL/L Potassium 4.0 3.5 - 5.1 MMOL/L Chloride 102 98 - 110 MMOL/L Glucose 106 (H) 70 - 100 MG/DL Blood Urea Nitrogen 16 7 - 25 MG/DL Creatinine 0.80 0.4 - 1.24 MG/DL Calcium 9.8 8.5 - 10.6 MG/DL Total Protein 6.3 6.0 - 8.0 G/DL Total Bilirubin 0.7 0.3 - 1.2 MG/DL Albumin 4.1 3.5 - 5.0 G/DL Alk Phosphatase 110 25 - 110 U/L AST (SGOT) 60 (H) 7 - 40 U/L CO2 28 21 - 30 MMOL/L ALT (SGPT) 86 (H) 7 - 56 U/L Anion Gap [...] Pharmacist for questions. Specimen Performing Laboratory Blood [facility] [address] [place] [address] * CBC AND DIFF (01/18/2018 11:09 AM) Component Value Ref Range White Blood Cells 6.4 4.5 - 11.0 K/UL RBC 3.21 (L) 4.4 - 5.5 M/UL Hemoglobin 12.5 (L) 13.5 - 16.5 GM/DL Hematocrit 36.0 (L) 40 - 50 % MCV 112.3 (H) 80 - 100 FL MCH 38.8 (H) 26 - 34 PG MCHC 34.6 32.0 - 36.0 G/DL RDW 11.9 11 - 15 % Platelet Count 245 150 - 400 K/UL MPV 6.6 (L) 7 - 11 FL Neutrophils 76 41 - 77 % Lymphocytes 9 (L) 24 - 44 % Monocytes 13 (H) 4 - 12 % Eosinophils 2 0 - 5 % Basophils 0 0 - 2 % Absolute Neutrophil Count 4.90 1.8 - 7.0 K/UL Absolute Lymph Count 0.60 (L) 1.0 - 4.8 K/UL Absolute Monocyte Count 0.80 0 - 0.80 K/UL Absolute Eosinophil Count 0.10 0 - 0.45 K/UL Absolute Basophil Count 0.00 0 - 0.20 K/UL Specimen Performing Laboratory Blood [facility] [address] [place] [address] in this encounter Visit Diagnoses Diagnosis H/O stem cell transplant (HCC) - Primary Peripheral stem cells replaced by transplant
--- OUTSIDE RECORDS SUMMARY | 2018-04-01 19:26 | XMS REPORT | Encounter Summary ---
Author Author [facility] Organization [facility] Address Unknown Phone Unavailable Care Team Providers Care Clinical Investigator Name Role Phone MarquesMirna garnett PCP Marco A Sanford MD [phone] Encounter Details Date Type Department Care Team Description 01/13/2018 Pharmacy Visit Call Center Pharmacy [address] [place] [address] Social History Tobacco Use Types Packs/Day Years [...]
--- OUTSIDE RECORDS SUMMARY | 2018-04-01 19:26 | XMS REPORT | Encounter Summary ---
Author Author [facility] Organization [facility] Address Unknown Phone Unavailable Care Team Providers Care Rehabilitation Services Manager Name Role Phone MarquesMirna garnett PCP Marco A Sanford MD [phone] Reason for Visit * Reason Comments Medication Refill Encounter Details Date Type Department Care Team Description 02/06/2018 Refill [facility] Franky Harkins MD Cancer Center - BMT Exam [address] [place] [address] [place] [address] [phone] Social History Tobacco Use Types Packs/Day Years [...]
--- OUTSIDE RECORDS SUMMARY | 2018-04-01 19:26 | XMS REPORT | Encounter Summary ---
Author Author [facility] Organization [facility] Address Unknown Phone Unavailable Care Team Providers Care Diesel Truck Crane Operator Name Role Phone Jerald Mirna DO PCP Marco A Sanford MD [phone] Reason for Visit * Reason Comments Heme/Onc Care Encounter Details Date Type Department Care Team Description 02/03/2018 Nurse Only [facility] Brian Gudino DO H/ O bone marrow Cancer Center - BMT Exam [address] [facility] transplant (HCC) [address] [place] [address] [place] [phone] Social History Tobacco Use Types Packs/Day Years [...] of this encounter Results * VRE SCREEN (02/03/2018 10:15 AM) Component Value Ref Range Battery Name VRE SCREEN Specimen Description PERIRECTAL SWAB Special Requests NONE Culture NO VRE ISOLATED Report Status FINAL 02/04/2018 Specimen Performing Laboratory Perirectal Swab [facility] [address] [place] [address] * MAGNESIUM (02/03/2018 10:05 AM) Component Value Ref Range Magnesium 1.9 1.6 - 2.6 mg/dL Specimen Performing Laboratory Blood [facility] [address] [place] [address] * COMPREHENSIVE METABOLIC PANEL (02/03/2018 10:05 AM) Component Value Ref Range Sodium 136 (L) 137 - 147 MMOL/L Potassium 3.8 3.5 - 5.1 MMOL/L Chloride 105 98 - 110 MMOL/L Glucose 113 (H) 70 - 100 MG/DL Blood Urea Nitrogen 14 7 - 25 MG/DL Creatinine 0.81 0.4 - 1.24 MG/DL Calcium 9.5 8.5 - 10.6 MG/DL Total Protein 6.3 6.0 - 8.0 G/DL Total Bilirubin 0.9 0.3 - 1.2 MG/DL Albumin 4.2 3.5 - 5.0 G/DL Alk Phosphatase 135 (H) 25 - 110 U/L AST (SGOT) 56 (H) 7 - 40 U/L CO2 27 21 - 30 MMOL/L ALT (SGPT) 113 (H) 7 - 56 U/L Anion Gap [...] Pharmacist for questions. Specimen Performing Laboratory Blood [facility] [address] [place] [address] * CBC AND DIFF (02/03/2018 10:05 AM) Component Value Ref Range White Blood Cells 5.2 4.5 - 11.0 K/UL RBC 3.16 (L) 4.4 - 5.5 M/UL Hemoglobin 12.5 (L) 13.5 - 16.5 GM/DL Hematocrit 35.6 (L) 40 - 50 % MCV 112.6 (H) 80 - 100 FL MCH 39.5 (H) 26 - 34 PG MCHC 35.1 32.0 - 36.0 G/DL RDW 13.0 11 - 15 % Platelet Count 188 150 - 400 K/UL MPV 6.4 (L) 7 - 11 FL Neutrophils 73 41 - 77 % Lymphocytes 10 (L) 24 - 44 % Monocytes 11 4 - 12 % Eosinophils 5 0 - 5 % Basophils 1 0 - 2 % Absolute Neutrophil Count 3.90 1.8 - 7.0 K/UL Absolute Lymph Count 0.50 (L) 1.0 - 4.8 K/UL Absolute Monocyte Count 0.60 0 - 0.80 K/UL Absolute Eosinophil Count 0.30 0 - 0.45 K/UL Absolute Basophil Count 0.00 0 - 0.20 K/UL Specimen Performing Laboratory Blood [facility] [address] [place] [address] in this encounter Visit Diagnoses Diagnosis H/O bone marrow transplant (HCC) Bone marrow replaced by transplant
--- OUTSIDE RECORDS SUMMARY | 2018-04-01 19:26 | XMS REPORT | Encounter Summary ---
Author Author [facility] Organization [facility] Address Unknown Phone Unavailable Care Team Providers Care Plant Tour Guide Name Role Phone Jerald Mirna PCP Marco A Sanford MD [phone] Reason for Visit * Reason Comments Heme/Onc Care Encounter Details Date Type Department Care Team Description 01/18/2018 Hospital [facility] Brian Gudino DO Encounter Cancer Center - BMT [address] [address] [place] [address] [address] [place] [address] [phone] Social History Tobacco Use Types Packs/Day Years [...] impairment: No 06/25/2017 as of this encounter Medications at Time of Discharge Medication Sig. Disp. Refills Start Date End Date acyclovir (ZOVIRAX) 800 Take 1 tablet by mouth 60 tablet 5 11/04/2017 mg tabletIndications: MDS twice a day. (myelodysplastic syndrome), high grade (HCC) pantoprazole DR Take 1 tablet by mouth 90 tablet 3 07/03/2017 (PROTONIX) 40 mg tablet daily. traMADol (ULTRAM) 50 mg Take 50 mg by mouth daily tablet as needed for Pain. Beclomethasone Take 1 mL by mouth four 120 mL 0 01/13/20182017 Dipropionate in [place] Oil times daily. 2mg/ml solution budesonide (ENTOCORT EC) Take 1 capsule by mouth 60 capsule 0 201702/03/2018 3 mg capsule twice daily. cyclosporine (RESTASIS) Apply 1 drop to both eyes 30 each 4 201604/01/2018 0.05 % ophthalmic twice daily. emulsion dapsone 100 mg tablet Take 1 tablet by mouth 30 tablet 3 12/16/2017 02/18/2018 daily. losartan (COZAAR) 50 mg Take 2 tablets by mouth 60 tablet 3 201702/06/2018 tablet daily. metoprolol tartrate Take 2 tablets by mouth 120 tablet 3 01/13/2018 02/03/2018 (LOPRESSOR) 25 mg tablet twice daily. tacrolimus (PROGRAF) 0.5 Take 1 capsule by mouth 01/18/2018 02/18/2018 mg capsuleIndications: every 48 hours. Taper H/O bone marrow held 01/18/18 transplant (HCC) as of this encounter Progress Notes * Graham Pena RN - 01/18/2018 1:17 PM CDT Received orders for 8 month immunizations. A total of 5 immunizations were administered. Pt provided with VIS for each immunization. Discussed possible side effects of immunizations. Pt verbalized understanding and gave verbal consent for immunizations to be administered. 2 injections given to right deltoid, 2 injections given to left deltoid, and 1 injection given in the back of the Left arm. Pt tolerated well. Patient left clinic ambulatory in stable condition with caregiver by his side. in this encounter Miscellaneous Notes * Addendum Note - Kacy Mireles - 01/22/2018 10:38 AM CDT Encounter addended by: Kacy Mireles on: 01/22/2018 10:38 AM
Actions taken: Visit diagnoses modified, Charge Capture section accepted in this encounter Plan of Treatment Not on fileas of this encounter Visit Diagnoses Diagnosis MDS (myelodysplastic syndrome), high grade (HCC) High grade myelodysplastic syndrome lesions Administered Medications Medication Order MAR Action Action Date Dose Rate Site diphtheria/tetanus/pertus(acell) booster Given 01/18/2018 0.5 mL Deltoid, (Tdap) (BOOSTRIX) injection 0.5 mL 12:52 CDT Left 0.5 mL, Intramuscular, ONCE, 1 dose, 01/18/18 at 1230, The selected vaccine is to be administered at 8 months post transplant. haemophilus B conjugate vaccine (ActHIB) Given 01/18/2018 0.5 mL Deltoid, injection 0.5 mL 12:54 CDT Right 0.5 mL, Intramuscular, ONCE, 1 dose, 01/18/18 at 1230, The selected vaccine is to be administered at 8 months post transplant. hepatitis B vaccine(PF), ADULT Given 01/18/2018 1 mL Deltoid, (ENGERIX-B) 20 mcg/mL injection 1 mL 12:51 CDT Left 1 mL, Intramuscular, ONCE, 1 dose, 01/18/18 at 1230, The selected vaccine is to be administered at 8 months post transplant. pneumococcal 13-dorothy conj vaccine Given 01/18/2018 0.5 mL Deltoid, (PF)(PCV13) (PREVNAR-13) injection 0.5 12:53 CDT Right mL 0.5 mL, Intramuscular, ONCE - UNTIL ADMIN, 1 dose, 01/18/18 at 1430, The selected vaccine is to be administered at 8 months post transplant. poliovirus (inactive) vaccine (IPV) Given 01/18/2018 0.5 mL Arm, Left (IPOL) injection 0.5 mL 12:53 CDT 0.5 mL, Subcutaneous, ONCE - UNTIL ADMIN, 1 dose, 01/18/18 at 1300, The selected vaccine is to be administered at 8 months post transplant. in this encounter
--- OUTSIDE RECORDS SUMMARY | 2018-04-01 19:26 | XMS REPORT | Encounter Summary ---
Author Author [facility] Organization [facility] Address Unknown Phone Unavailable Care Team Providers Care Grab Setter Name Role Phone JeraldYarielmaranda MILLER PCP Marco A Sanford MD [phone] Reason for Visit * Reason Comments Heme/Onc Care Encounter Details Date Type Department Care Team Description 01/18/2018 Nurse Only [facility] Brian Gudino DO H/ O stem cell transplant Cancer Center - BMT Exam [address] [facility] [address] [place] [address] [place] [phone] Social History Tobacco Use Types Packs/Day Years [...] - 2.6 mg/dL Specimen Performing Laboratory Blood [facility] [address] [place] [address] * COMPREHENSIVE METABOLIC PANEL (01/18/2018 11:09 AM) [...] Pharmacist for questions. Specimen Performing Laboratory Blood [facility] [address] [place] [address] * CBC AND DIFF (01/18/2018 11:09 AM) [...] - 0.20 K/UL Specimen Performing Laboratory Blood [facility] [address] [place] [address] in this encounter Visit Diagnoses Diagnosis H/O stem cell transplant (HCC) Peripheral stem cells replaced by transplant
--- OUTSIDE RECORDS SUMMARY | 2018-04-01 19:26 | XMS REPORT | Encounter Summary ---
Author Author [facility] Organization [facility] Address Unknown Phone Unavailable Care Team Providers Care Kettle Operator Head Name Role Phone MarquesMirna garnett PCP Marco A Sanford MD [phone] Encounter Details Date Type Department Care Team Description 01/18/2018 Procedure Pass Gastroint[facility]stinal Endoscopy [address] [place] [address] Social History Tobacco Use Types Packs/Day Years [...]
--- OUTSIDE RECORDS SUMMARY | 2018-04-01 19:26 | XMS REPORT | Encounter Summary ---
Author Author [facility] Organization [facility] Address Unknown Phone Unavailable Care Team Providers Care Clearance Coordinator Name Role Phone Mirna Marques DO PCP Marco A Sanford MD [phone] Reason for Visit * Reason Comments Eye Exam Encounter Details Date Type Department Care Team Description 02/18/2018 Office Visit [facility] Mario Bhagat MD No- show for appointment Physicians - [address] [place] [address] [address] [facility] [phone] [address] [place] [address] Social History Tobacco Use Types [...] Progress Notes * Mario Bhagat MD - 02/18/2018 1:15 PM CDT Formatting of this note may be different from the original. There is no height or weight on file to calculate BMI. CBC AND DIFF Component Value Flag Ref Range Units Status White Blood Cells 5.1 4.5 - 11.0 K/UL Final RBC 2.87 (Low) L 4.4 - 5.5 M/UL Final Hemoglobin 11.6 (Low) L 13.5 - 16.5 GM/DL Final Hematocrit 32.7 (Low) L 40 - 50 % Final MCV 114.1 (High) H 80 - 100 FL Final MCH 40.4 (High) H 26 - 34 PG Final MCHC 35.4 32.0 - 36.0 G/DL Final RDW 14.3 11 - 15 % Final Platelet Count 228 150 - 400 K/UL Final MPV 6.5 (Low) L 7 - 11 FL Final Neutrophils 72 41 - 77 % Final Lymphocytes 11 (Low) L 24 - 44 % Final Monocytes 12 4 - 12 % Final Eosinophils 4 0 - 5 % Final Basophils 1 0 - 2 % Final Absolute Neutrophil Count 3.70 1.8 - 7.0 K/UL Final Absolute Lymph Count 0.60 (Low) L 1.0 - 4.8 K/UL Final Absolute Monocyte Count 0.60 0 - 0.80 K/UL Final Absolute Eosinophil Count 0.20 0 - 0.45 K/UL Final Absolute Basophil Count 0.00 0 - 0.20 K/UL Final COMPREHENSIVE METABOLIC PANEL Component Value Flag Ref Range Units Status Sodium 132 (Low) L 137 - 147 MMOL/L Final Potassium 3.9 3.5 - 5.1 MMOL/L Final Chloride 102 98 - 110 MMOL/L Final Glucose 133 (High) H 70 - 100 MG/DL Final Blood Urea Nitrogen 15 7 - 25 MG/DL Final Creatinine 0.87 0.4 - 1.24 MG/DL Final Calcium 9.5 8.5 - 10.6 MG/DL Final Total Protein 6.4 6.0 - 8.0 G/DL Final Total Bilirubin 1.0 0.3 - 1.2 MG/DL Final Albumin 4.3 3.5 - 5.0 G/DL Final Alk Phosphatase 152 (High) H 25 - 110 U/L Final AST (SGOT) 54 (High) H 7 - 40 U/L Final CO2 27 21 - 30 MMOL/L Final ALT (SGPT) 90 (High) H 7 - 56 U/L Final Anion Gap 3 3 - 12 Final eGFR Non >60 [...] Value Flag Ref Range Units Status Magnesium 2.0 1.6 - 2.6 mg/dL Final Assessment and Plan: Patient was not worked up or seen in clinic today, unsure if patient showed up in clinic today? A request was made to call the patient and arrange for an appointment sometime next week, or sooner as needed. in this encounter Plan of Treatment Not on fileas of this encounter Visit Diagnoses Diagnosis No-show for appointment
--- OUTSIDE RECORDS SUMMARY | 2018-04-01 19:26 | XMS REPORT | Encounter Summary ---
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), high grade [address] (HCC) (Primary Dx); [address] [place] [address] Essential hypertension; [place] [address] H/O bone marrow [phone] transplant (HCC); Drug-induced polyneuropathy (HCC); 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); H/O stem cell transplant (HCC) Social History Tobacco Use Types Packs/Day Years Used Date Former Smoker Cigars 1 5 Quit: 03/24/2003 Smokeless Tobacco: Never Used Alcohol Use Drinks/Week oz/Week Comments No 6 Cans of 3.6 beer Sex Assigned at Date Recorded Not on file as of this encounter Last Filed Vital Signs Vital Sign Reading Time Taken Blood Pressure 146/71 02/03/2018 10:12 AM CDT Pulse 69 02/03/2018 10:12 AM CDT Temperature 36.7 C (98.1 F) 02/03/2018 10:12 AM CDT Respiratory Rate 15 02/03/2018 10:12 AM CDT Oxygen Saturation 97% 02/03/2018 10:12 AM CDT Inhaled Oxygen - - Concentration Weight 73.6 kg (162 lb 3.2 oz) 02/03/2018 10:12 AM CDT Height 180.3 cm (5' 10.98") 02/03/2018 10:12 AM CDT Body Mass Index 22.63 02/03/2018 10:12 AM CDT in this encounter Functional Status [...] as of this encounter Progress Notes * Eva Orourke RN - 02/03/2018 10:50 AM CDT Date of Transplant: 06/04/2017 Day+243 Transplant Type: Allogeneic Unrelated Conditioning Regimen: Bu/flu Conditioning Regimen Type: Reduced Intensity Rationale for reduced/NST regimen: age Diagnosis/Stage: MDS - RAEB-2 Disease Status at Transplant: SD (Stable Disease) Cytogenetic/Fish AT DIAGNOSIS: 02/28/2016 CTYO: 45,X,-Y[7]46,XY[13]; FISH not performed at time of diagnosis. Cyto and FISH from 09/2016 normal Stem Cell Source: Bone Marrow Graft Manipulation: Not Applicable [facility] DID: [id number] Donor Information: Age 23 , Sex male, [...] - 06/05/18 Dr. Marco A De Leon ph#[phone], fx#[phone] 02/03: Reviewed lineage specific chimerism, decreased corn oil to BID. Reviewed BP log, increased metoprolol to 75 mg BID. Will recheck CD4 count in two weeks. RTC: 2 weeks provider, lab (cbc,cmp,mag,vre) 02/18 lab, [facility] * Brian Gudino DO - 02/03/2018 10:50 AM CDT Formatting of this note may be different from the original. Date of Service: 02/03/2018 Day +243 MUD for MDS-RAEB Subjective: Presents without c/o. Heme/Onc Care Reason for Visit: [...] Source: Bone Marrow Graft Manipulation: Not Applicable [facility] DID: [id number] Donor Information: Age 23 , Sex male, HLA-Match: 8 of 8 HLA Antibody Screen: Negative CMV Status: Donor - Negative; Recipient - Negative Blood Type: Donor - O Positive ; Recipient - A Positive Consents / Study# / Protocol#: 8322, chemotherapy, blood, allogeneic, storage/ processing Pretransplant Coordinator: Maurilio Kilgore RN [facility]-MR: [id number] APPOINTMENT: Future Appointments Date Time Provider Department Center 04/08/2017 11:30 AM BMT FINANCIAL COORD 3 [facility] None 04/08/2017 11:50 AM Brian Gudino DO [facility] None 04/08/2017 1:00 PM BMT EXAM LAB [facility] None REFERRING PHYSICIAN: Marco A Sanford FACILITY: [facility] CONTACT NAME: Monet PHONE: [phone] INSURANCE: Medicare/[facility] Allergies: NKA Family Hx: M [...] Patient wanting to wait until after his mcc before attending this consult appointment and therefore [...] Dermatology: No pallor, rash, wound, or color changes Neurology: No headaches, dizziness, facial asymmetry, seizures, speech difficulty, weakness, tremors, light headedness, or syncope. Hematologic: No bruising, swelling, or adenopathy Psych: No behavior problem, confusion, mood changes, hallucinations, nervous/ anxiety, sleep disturbances, or suicidal ideation. Objective: acyclovir (ZOVIRAX) 800 mg tablet Take 1 tablet by mouth twice a day. Beclomethasone Dipropionate in [place] Oil 2mg/ml solution Take 1 mL by mouth four times daily. budesonide (ENTOCORT EC) 3 mg capsule Take 1 capsule by mouth twice daily. cyclosporine (RESTASIS) 0.05 % ophthalmic emulsion Apply 1 drop to both eyes twice daily. dapsone 100 mg tablet Take 1 tablet by mouth daily. losartan (COZAAR) 50 mg tablet Take 2 tablets by mouth daily. metoprolol tartrate (LOPRESSOR) 25 mg tablet Take 2 tablets by mouth twice daily. pantoprazole DR (PROTONIX) 40 mg tablet Take 1 tablet by mouth daily. tacrolimus (PROGRAF) 0.5 mg capsule Take 1 capsule by mouth every 48 hours. Taper held 01/18/18 traMADol (ULTRAM) 50 mg tablet Take 50 mg by mouth daily as needed for Pain. Vitals: 02/03/18 1012 BP: 146/71 Pulse: 69 Resp: 15 Temp: 36.7 C (98.1 F) TempSrc: Oral SpO2: 97% Weight: 73.6 kg (162 lb 3.2 oz) Height: 180.3 cm (70.98") Body mass index is 22.63 kg/m. Pain Score: Zero Pain Addressed: N/A Patient Evaluated for a Clinical Trial: Patient not eligible for a treatment trial (including not needing treatment, needs palliative care, in remission). Karnofsky Scale: 100% Normal, no complaints Physical Exam Constitutional: He is oriented to person, place, and time. Vital signs are normal. He appears well-developed and well-nourished. He is cooperative. HENT: Head: Normocephalic and atraumatic. Right Ear: External ear normal. Left Ear: External ear normal. Nose: Nose normal. Mouth/Throat: Oropharynx is clear and moist and mucous membranes are normal. No oropharyngeal exudate. Eyes: Conjunctivae and EOM are normal. Pupils are equal, round, and reactive to light. No scleral icterus. Neck: Normal range of motion. Neck supple. No edema present. No thyromegaly present. Cardiovascular: Normal rate and regular rhythm. Exam reveals no gallop and no friction rub. Murmur (soft systolic murmur) heard. Pulmonary/Chest: Effort normal and breath sounds normal. [...] normal. Skin: Skin is warm and dry. Psychiatric: He has a normal mood and affect. His behavior is normal. Judgment and thought content normal. Cognition and memory are normal. Nursing note and vitals reviewed. CBC w/DIFF CBC with Diff Latest Ref Rng & Units 02/03/2018 01/18/2018 01/13/2018 12/30/20172017 WBC 4.5 - 11.0 K/UL 5.2 6.4 4.7 6.2 5.1 RBC 4.4 - 5.5 M/UL 3.16(L) 3.21(L) 3.11(L) 3.24(L) 3.08(L) HGB 13.5 - 16.5 GM/DL 12.5(L) 12.5(L) 12.1(L) 12.5(L) 12.2(L) HCT 40 - 50 % 35.6(L) 36.0(L) 34.8(L) 36.5(L) 34.2(L) MCV 80 - 100 FL 112.6(H) 112.3(H) 112.0(H) 112.5(H) 111.0(H) MCH 26 - 34 PG 39.5(H) 38.8(H) 39.0(H) 38.6(H) 39.6(H) MCHC 32.0 - 36.0 G/DL 35.1 34.6 34.8 34.3 35.7 RDW 11 - 15 % 13.0 11.9 12.1 13.4 14.1 PLT 150 - 400 K/UL 188 245 220 237 266 MPV 7 - 11 FL 6.4(L) 6.6(L) 6.5(L) 6.7(L) 6.6(L) NEUT 41 - 77 % 73 76 70 74 - ANC 1.8 - 7.0 K/UL 3.90 4.90 3.30 4.60 - LYMA 24 - 44 % 10(L) 9(L) 11(L) 8(L) - ALYM 1.0 - 4.8 K/UL 0.50(L) 0.60(L) 0.50(L) 0.50(L) - JERMAINE 4 - 12 % 11 13(H) 12 13(H) - AMONO 0 - 0.80 K/UL 0.60 0.80 0.60 0.80 - EOSA 0 - 5 % 5 2 6(H) 4 - AEOS 0 - 0.45 K/UL 0.30 0.10 0.30 0.30 - BASA 0 - 2 % 1 0 1 1 - ABAS 0 - 0.20 K/UL 0.00 0.00 0.00 0.00 - Comprehensive Metabolic Profile CMP Latest Ref Rng & Units 01/18/2018 01/13/2018 12/30/2017 12/16/2017 12/09/2017 NA 137 - 147 MMOL/L 133(L) 135(L) 136(L) 135(L) 135(L) K 3.5 - 5.1 MMOL/L 4.0 3.7 4.4 4.0 4.2 CL 98 - 110 MMOL/L 102 104 103 103 103 CO2 21 - 30 MMOL/L 28 27 26 26 26 GAP 3 - 12 3 4 7 6 6 BUN 7 - 25 MG/DL 16 12 11 11 10 CR 0.4 - 1.24 MG/DL 0.80 0.79 0.79 0.87 0.92 GLUX 70 - 100 MG/DL 106(H) 147(H) 103(H) 144(H) 130(H) CA 8.5 - 10.6 MG/DL 9.8 9.5 9.8 9.5 9.6 TP 6.0 - 8.0 G/DL 6.3 6.2 6.5 6.2 6.4 ALB 3.5 - 5.0 G/DL 4.1 3.9 4.1 4.2 4.1 ALKP 25 - 110 U/L 110 113(H) 102 91 82 ALT 7 - 56 U/L 86(H) 45 33 14 15 TBILI 0.3 - 1.2 MG/DL 0.7 0.7 0.6 0.4 0.5 GFR >60 mL/min >60 >60 >60 >60 >60 GFRAA >60 mL/min >60 >60 >60 >60 >60 Assessment and Plan: Primary Disease: MDS RAEB1 with progressive cytopenias received azacytidine, S/ P MUD male donor marrow source BUFLU conditioning Day+243. - Enrolled on BMT-CTN 1102. - Bone marrow 04/08 shows 40% cellular, 8% blasts, no markers on NGS, and -Y cytogenetics. - Pretransplant bone marrow: normocellular, 40% cellularity with decreased granulopoiesis and 4% blasts on morphology. Flow: 2.2% neoplastic myeloid blasts - Chimerism:. Missed d#30 chimerism, d#39=104% donor, day#60=98% donor - Day 100 BMBx: Normocellular marrow (30-40%), normal appearing trilineage hematopoiesis, and less than 1% blasts. Flow cytometry: negative. Cytogenetics was normal. Chimerism Day 100 showed 99% donor. - Day 100 immunereconstitution: IgG 563, IgA 143 and IgM 64. CD4 126 and CD8 28 - Day 100 PFT was normal - Repeat BM / in CR. Normal cytogenetics, - Chimerism 10/21: down to 96% from 99% at Day 100. - 11/09: 100% donor Cd33, 53% donor CD3, Begin 3 month tac taper, repeat chimerism lineage specific 100% myeloid, 68% lymphoid - D#180 BM, in CR, 100% donor. - PB for repeat lineage specific chimerism 01/13: 100% Myeloid, 80% lymphoid Heme: - Engrafted. - Transfusion independent. ID: - Afebrile. No active infections. - Continue antiinfective prophylaxis with acyclovir,and bactrim. - CMV -/-, monitoring not needed. - vaccinations today, 8 month CVS: - Hypertension moderate and not controlled. - Continue Losartan 100 mg Qday. Increase lopressor 50 mg BID 01/13. Pt to bring in home BP recordings for review at next visit - Pretransplant 2 D Echo- normal, EF 60% Pulmonary: - Asymptomatic, PFT's normal FEN: - Replace electrolytes per BMT standard protocol. - Renal function normal. - Peripheral edema resolved. Resolved, dc aldactone - Appetite reduced, weight stable. GI: - No further nausea or anorexia with addition of B&B 01/13 -GERD- heart burn, on pantoprazole Skin: -Dry skin. No rash MSK: - Intermittent low back [...] of left foot and whole foot/ankle on right. - Has tingling/numbness. Affects his gait, hx of multiple falls, now walking with cane. Eyes: - Eval by PAT Eye 09/14, diagnosed with dry eyes on restasis eye drops,helpful. Psy: - Stable. present and very supportive. GVHD: -Was previously on prednisone 09/23 through 11/04/17. GI issues resolved with B+ B. Decrease Beclamethasone to BID - Underwent brisk taper due to falling chimerism and worsening cytopenias - He has continued Tac taper to facilitate increase in donor CD3, however, pt at high risk for GVHD. -Continue to follow weekly with ongoing GI sx. cGVHD Some values may be hidden. Unless noted otherwise, only the newest values recorded on each date are displayed. cGVHD 11/09/17 11/18/17 01/13/18 Maximum Grade of Chronic Graft vs Host Disease Extensive Limited Extensive Overall Severity of Chronic Graft vs Host Disease Moderate Mild Moderate Sclerosis of Skin No No No Other Skin or Hair Involvement Rash scaling None None Eyes Xerophthalmia (Dry Eyes) Xerophthalmia (Dry Eyes) Xerophthalmia (Dry Eyes) Mouth None None None Bronchiolitis Obliterans No No No Other Lung Involvement No No No Gastrointestinal Tract Chronic diarrhea intermittent None Chronic nausea/vomiting;Abdominal pain Liver No No No Genitourinary Tract None None None Musculoskeletal None None None Thrombocytopenia Yes No No Eosinophilia No No Yes Autoantibodies No No No Other Hematologic Involvement No No No RTC: 2 weeks for provider, labs. in this encounter Plan of Treatment Not on fileas of this encounter Results * CD4 ABSOLUTE CELL COUNT (02/18/2018 9:59 AM) Component Value Ref Range CD4 Count 187 (L) 440 - 2,160 CD4 % 33.1 28 - 63 % Specimen Performing Laboratory Blood [facility] [address] [place] [address] * MAGNESIUM (02/18/2018 9:59 AM) Component Value Ref Range Magnesium 2.0 1.6 - 2.6 mg/dL Specimen Performing Laboratory Blood [facility] [address] [place] [address] * COMPREHENSIVE METABOLIC PANEL (02/18/2018 9:59 AM) [...] Pharmacist for questions. 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
--- OUTSIDE RECORDS SUMMARY | 2018-04-01 19:26 | XMS REPORT | Encounter Summary ---
Author Author [facility] Organization [facility] Address Unknown Phone Unavailable Care Team Providers Care Computer Artist Name Role Phone JeraldYarielmaranda MILLER PCP Marco A Sanford MD [phone] Reason for Visit * Reason Comments Heme/Onc Care Encounter Details Date Type Department Care Team Description 01/18/2018 Office Visit [facility] Brian Gudino DO H /O bone marrow Cancer [facility] - BMT Exam [address] [facility] transplant ([facility]) (Primary [address] [facility]x); [address] [place] [address] MDS ([place] [address] syndrome), high grade [phone] ([facility]); Essential hypertension; Drug-induced polyneuropathy ([facility]); GVHD (graft versus host disease) ([facility]); H/O stem cell transplant ([facility]) Social History Tobacco Use Types Packs/Day Years Used Date Former Smoker Cigars 1 5 Quit: 03/24/2003 Smokeless Tobacco: Never Used Alcohol Use Drinks/Week oz/Week Comments No 6 Cans of 3.6 beer Sex Assigned at Date Recorded Not on file as of this encounter Last Filed Vital Signs Vital Sign Reading Time Taken Blood Pressure 168/75 01/18/2018 11:12 AM CDT Pulse 64 01/18/2018 11:12 AM CDT Temperature 36.4 C (97.6 F) 01/18/2018 11:12 AM CDT Respiratory Rate 17 01/18/2018 11:12 AM CDT Oxygen Saturation 96% 01/18/2018 11:12 AM CDT Inhaled Oxygen - - Concentration Weight 74.2 kg (163 lb 9.6 oz) 01/18/2018 11:12 AM CDT Height 180.3 cm (5' 10.98") 01/18/2018 11:12 AM CDT Body Mass Index 22.83 01/18/2018 11:12 AM CDT in this encounter Functional Status [...] as of this encounter Progress Notes * Narcisa Singh RN - 01/18/2018 12:50 PM CDT Date of Transplant: 06/04/2017 Day+227 Transplant Type: Allogeneic Unrelated Conditioning Regimen: Bu/flu Conditioning Regimen Type: Reduced Intensity Rationale for reduced/NST regimen: age Diagnosis/Stage: MDS - RAEB-2 Disease Status at Transplant: SD (Stable Disease) Cytogenetic/Fish AT DIAGNOSIS: 02/28/2016 CTYO: 45,X,-Y[7]46,XY[13]; FISH not performed at time of diagnosis. Cyto and FISH from 09/2016 normal Stem Cell Source: Bone Marrow Graft Manipulation: Not Applicable [facility] DID: [id number] Donor Information: Age 23 , Sex male, [...] - 06/05/18 Dr. Marco A De Leon ph#[phone], fx#[phone] 01/18: 8 month shots today Symptoms gone after starting b&b, diet normal, no n/v/ diarrhea- cancel EGD/ flex sig today Budesonide will have a huge copay when he hits his medicare doughnut hole- will need to assess at the end of his one month RX if he can fill again Hold tacrolimus at 0.5mg every other day Will keep a log of blood pressures for the next two weeks and bring with him to next visit with recurrent elevated blood pressures in clinic RTC: 2 weeks provider, lab (cbc,cmp,mag,vre) * Brian Gudino DO - 01/18/2018 12:50 PM CDT Formatting of this note may be different from the original. Date of Service: 01/18/2018 Day +227 MUD for MDS-RAEB Subjective: Reports feeling best he has in awhile. very fatigued. Nausea and anorexia for the last six weeks has completely resolved with addition of B+B. Denies vomiting, no dysphagia, or diarrhea. Heme/Onc Care Reason for Visit: Follow-up post [...] Source: Bone Marrow Graft Manipulation: Not Applicable [facility] DID: [id number] Donor Information: Age 23 , Sex male, HLA-Match: 8 of 8 HLA Antibody Screen: Negative CMV Status: Donor - Negative; Recipient - Negative Blood Type: Donor - O Positive ; Recipient - A Positive Consents / Study# / Protocol#: 8322, chemotherapy, blood, allogeneic, storage/ processing Pretransplant Coordinator: Maurilio Kilgore RN -MR: [id number] APPOINTMENT: Future Appointments Date Time Provider Department Center 04/08/2017 11:30 AM BMT FINANCIAL COORD 3 BMTEXM None 04/08/2017 11:50 AM Brian Gudino, DO BMTEXM None 04/08/2017 1:00 PM BMT EXAM LAB BMTEXM None REFERRING PHYSICIAN: Marco A Sanford FACILITY: [facility] CONTACT NAME: Monet PHONE: [phone] INSURANCE: Medicare/[facility] Allergies: NKA Family Hx: M lung [...] mouth twice a day. Beclomethasone Dipropionate in [place] Oil 2mg/ml solution Take 1 mL by [...] mouth daily as needed for Pain. Vitals: 01/18/18 1112 BP: 168/75 Pulse: 64 Resp: 17 Temp: 36.4 C (97.6 F) TempSrc: Oral SpO2: 96% Weight: 74.2 kg (163 lb 9.6 oz) Height: 180.3 cm (70.98") Body mass index is 22.83 kg/m. Pain Score: Zero Pain Addressed: N/A [...] with Diff Latest Ref Rng & Units 01/18/2018 01/13/2018 12/30/2017 12/16/20172017 WBC 4.5 - 11.0 K/UL 6.4 4.7 6.2 5.1 5.7 RBC 4.4 - 5.5 M/UL 3.21(L) 3.11(L) 3.24(L) 3.08(L) 3.02(L) HGB 13.5 - 16.5 GM/DL 12.5(L) 12.1(L) 12.5(L) 12.2(L) 12.0(L) HCT 40 - 50 % 36.0(L) 34.8(L) 36.5(L) 34.2(L) 33.3(L) MCV 80 - 100 FL 112.3(H) 112.0(H) 112.5(H) 111.0(H) 110.3(H) MCH 26 - 34 PG 38.8(H) 39.0(H) 38.6(H) 39.6(H) 39.7(H) MCHC 32.0 - 36.0 G/DL 34.6 34.8 34.3 35.7 36.0 RDW 11 - 15 % 11.9 12.1 13.4 14.1 15.0 PLT 150 - 400 K/UL 245 220 237 266 263 MPV 7 - 11 FL 6.6(L) 6.5(L) 6.7(L) 6.6(L) 6.8(L) NEUT 41 - 77 % 76 70 74 - 77 ANC 1.8 - 7.0 K/UL 4.90 3.30 4.60 - 4.40 LYMA 24 - 44 % 9(L) 11(L) 8(L) - 7(L) ALYM 1.0 - 4.8 K/UL 0.60(L) 0.50(L) 0.50(L) - 0.40(L) JERMAINE 4 - 12 % 13(H) 12 13(H) - 14(H) AMONO 0 - 0.80 K/UL 0.80 0.60 0.80 - 0.80 EOSA 0 - 5 % 2 6(H) 4 - 1 AEOS 0 - 0.45 K/UL 0.10 0.30 0.30 - 0.10 BASA 0 - 2 % 0 1 1 - 1 ABAS 0 - 0.20 K/UL 0.00 0.00 0.00 - 0.00 Comprehensive Metabolic Profile CMP Latest Ref [...] MUD male donor marrow source BUFLU conditioning Day+222. - Enrolled on BMT-CTN 1102. - Bone marrow 04/08 shows 40% cellular, 8% blasts, no markers on NGS, and -Y cytogenetics. - Pretransplant bone marrow: normocellular, 40% cellularity with decreased granulopoiesis and 4% blasts on morphology. Flow: 2.2% neoplastic myeloid blasts - Chimerism:. Missed d#30 chimerism, d#14=858% donor, day#60=98% donor - Day 100 BMBx: Normocellular marrow (30-40%), normal appearing trilineage hematopoiesis, and less than 1% blasts. Flow cytometry: negative. Cytogenetics was normal. Chimerism Day 100 showed 99% donor. - Day 100 immunereconstitution: IgG 563, IgA 143 and IgM 64. CD4 126 and CD8 28 - Day 100 PFT was normal - Repeat BM /10 in CR. Normal cytogenetics, - Chimerism /: down to 96% from 99% at Day 100. - 11/09: 100% donor Cd33, 53% donor CD3, Begin 3 month tac taper, repeat chimerism lineage specific 100% myeloid, 68% lymphoid - D#180 BM, in CR, 100% donor. PB for repeat lineage specific chimerism 01/13 pending Heme: - Engrafted. -Mild eosinophilia - Transfusion independent. ID: - Afebrile. No [...] EF 60% Pulmonary: - Asymptomatic, PFT's normal - CT chest 05/20: 3 mm nodular opacity in right upper lobe- indeterminate FEN: - Replace electrolytes per BMT standard protocol. - Renal function normal. - Peripheral edema resolved. Resolved, dc aldactone - Appetite reduced, weight stable. GI: - Ongoing nausea and anorexia for several weeks. ?C. GvHD. Will start local B&B 01/13 -upper and lower scopes next week and follow up in clinic for eval. -GERD- heart burn, on pantoprazole Skin: -Dry [...] - Stable. present and very supportive. GVHD: cGVHD- Suspect GI. Comments:Patient with recent persistent GI symptoms; nausea and anorexia, some weight loss. Canceled EGD and sigmoidoscopy scheduled for today -Started local steroids with B&B 01/13/18 and sxs fully resolved Treatment: -Was previously on prednisone 09/23 through 11/04/17. - Underwent brisk taper due to falling [...] No No RTC: 2 weeks for provider, labs, and scopes. in this encounter Plan of Treatment Not on fileas of this encounter Results * VRE SCREEN (02/03/2018 10:15 AM) Component Value Ref Range Battery Name VRE SCREEN Specimen Description PERIRECTAL SWAB Special Requests NONE Culture NO VRE ISOLATED Report Status FINAL 02/04/2018 Specimen Performing Laboratory Perirectal Swab [facility] [address] [place] [address] * MAGNESIUM (02/03/2018 10:05 AM) Component Value Ref Range Magnesium 1.9 1.6 - 2.6 mg/dL Specimen Performing Laboratory Blood [facility] [address] [place] [address] * COMPREHENSIVE METABOLIC PANEL (02/03/2018 10:05 AM) [...] for questions. 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
--- OUTSIDE RECORDS SUMMARY | 2018-04-01 19:27 | XMS REPORT | Encounter Summary ---
Author Author [facility] Organization [facility] Address Unknown Phone Unavailable Care Team Providers Care Field Hauler Name Role Phone Mirna Marques PCP Marco A Sanford MD [phone] Reason for Visit * Reason Comments Heme/Onc Care Encounter Details Date Type Department Care Team Description 01/13/2018 Nurse Only [facility] Sarah Fischer APRN MDS (myelodysplastic Cancer Center - BMT Exam [address] syndrome), high grade [address] ([facility]); [address] [place] [address] [place] [address] transplant ([facility]) [phone] Social History Tobacco Use Types Packs/Day Years [...] on fileas of this encounter Results * LYMPHOID ENGRAFTMENT ANALYSIS BLOOD (01/13/2018 9:53 AM) Component Value Ref Range Lymploid Engraftment SEE DIGITAL PRINTER OPERATOR FOR REPORT Analysis BLD TEST PERFORMED BY [employer] Specimen Performing Laboratory Blood [facility] * MYELOID ENGRAFTMENT ANALYSIS BLD (01/13/2018 9:53 AM) Component Value Ref Range Myeloid Engraftment SEE DIGITAL PRINTER OPERATOR FOR REPORT Analysis BLD Specimen Performing Laboratory Blood [facility] * MAGNESIUM (01/13/2018 9:53 AM) Component Value Ref Range Magnesium 1.8 1.6 - 2.6 mg/dL Specimen Performing Laboratory Blood [facility] [address] [place] [address] * COMPREHENSIVE METABOLIC PANEL (01/13/2018 9:53 AM) Component Value Ref Range Sodium 135 (L) 137 - 147 MMOL/L Potassium 3.7 3.5 - 5.1 MMOL/L Chloride 104 98 - 110 MMOL/L Glucose 147 (H) 70 - 100 MG/DL Blood Urea Nitrogen 12 7 - 25 MG/DL Creatinine 0.79 0.4 - 1.24 MG/DL Calcium 9.5 8.5 - 10.6 MG/DL Total Protein 6.2 6.0 - 8.0 G/DL Total Bilirubin 0.7 0.3 - 1.2 MG/DL Albumin 3.9 3.5 - 5.0 G/DL Alk Phosphatase 113 (H) 25 - 110 U/L AST (SGOT) 38 7 - 40 U/L CO2 27 21 - 30 MMOL/L ALT (SGPT) 45 7 - 56 U/L Anion Gap 4 [...] [facility] [address] [place] [address] * CBC AND DIFF (01/13/2018 9:53 AM) Component Value Ref Range White Blood Cells 4.7 4.5 - 11.0 K/UL RBC 3.11 (L) 4.4 - 5.5 M/UL Hemoglobin 12.1 (L) 13.5 - 16.5 GM/DL Hematocrit 34.8 (L) 40 - 50 % MCV 112.0 (H) 80 - 100 FL MCH 39.0 (H) 26 - 34 PG MCHC 34.8 32.0 - 36.0 G/DL RDW 12.1 11 - 15 % Platelet Count 220 150 - 400 K/UL MPV 6.5 (L) 7 - 11 FL Neutrophils 70 41 - 77 % Lymphocytes 11 (L) 24 - 44 % Monocytes 12 4 - 12 % Eosinophils 6 (H) 0 - 5 % Basophils 1 0 - 2 % Absolute Neutrophil Count 3.30 1.8 - 7.0 K/UL Absolute Lymph Count 0.50 (L) 1.0 - 4.8 K/UL Absolute Monocyte Count 0.60 0 - 0.80 K/UL Absolute Eosinophil Count 0.30 0 - 0.45 K/UL Absolute Basophil Count 0.00 0 - 0.20 K/UL Specimen Performing Laboratory Blood [facility] [address] [place] [address] in this encounter Visit Diagnoses Diagnosis MDS (myelodysplastic syndrome), 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
--- OUTSIDE RECORDS SUMMARY | 2018-04-01 19:27 | XMS REPORT | Encounter Summary ---
Author Author [facility] Organization [facility] Address Unknown Phone Unavailable Care Team Providers Care Boiler Engineer Name Role Phone MarquesMirna garnett PCP Marco A Sanford MD [phone] Reason for Referral * Consult, Test & Treat (Routine) Status Reason Specialty Diagnoses / Referred By Referred To Procedures Contact Contact Closed Specialty Diagnoses Sarah Fischer, [facility] MDS RESIDENTIAL GREEN BUILDING DESIGNER [address] Required (myelodysplastic [address] [place], [place] syndrome), [place] [id number] grade (HCC) [place] [address] Phone: H/O bone marrow [place], [place] [phone] transplant (HCC) [address] Nausea Phone: Lack of appetite [phone] Reason for Visit * Reason Comments Heme/Onc Care Encounter Details Date Type Department Care Team Description 01/13/2018 Office Visit [facility] Sarah Fischer, ANDREA MDS (myelodysplastic Cancer Center - BMT Exam [address] syndrome), high grade [address] (HCC) (Primary Dx); [address] [place] [address] [place] [address] transplant (HCC); [phone] Nausea; Lack of appetite; Fatigue due to exposure, subsequent encounter; Essential hypertension; 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); Anorexia Social History Tobacco Use Types Packs/Day Years Used Date Former Smoker Cigars 1 5 Quit: 03/24/2003 Smokeless Tobacco: Never Used Alcohol Use Drinks/Week oz/Week Comments No 6 Cans of 3.6 beer Sex Assigned at Date Recorded Not on file as of this encounter Last Filed Vital Signs Vital Sign Reading Time Taken Blood Pressure 151/72 01/13/2018 9:58 AM CDT Pulse 72 01/13/2018 9:58 AM CDT Temperature 36.6 C (97.8 F) 01/13/2018 9:58 AM CDT Respiratory Rate 17 01/13/2018 9:58 AM CDT Oxygen Saturation 96% 01/13/2018 9:58 AM CDT Inhaled Oxygen - - Concentration Weight 74.7 kg (164 lb 9.6 oz) 01/13/2018 9:58 AM CDT Height 180.3 cm (5' 10.98") 01/13/2018 9:58 AM CDT Body Mass Index 22.97 01/13/2018 9:58 AM CDT in this encounter Functional Status [...] Progress Notes * Narcisa Singh RN - 01/13/2018 10:30 AM CDT Date of Transplant: 06/04/2017 Day+222 Transplant Type: Allogeneic Unrelated Conditioning Regimen: Bu/flu Conditioning Regimen Type: Reduced Intensity Rationale for reduced/NST regimen: age Diagnosis/Stage: MDS - RAEB-2 Disease Status at Transplant: SD (Stable Disease) Cytogenetic/Fish AT DIAGNOSIS: 02/28/2016 CTYO: 45,X,-Y[7]46,XY[13]; FISH not performed at time of diagnosis. Cyto and FISH from 09/2016 normal Stem Cell Source: Bone Marrow Graft Manipulation: Not Applicable [facility] DID: [id number] Donor Information: Age 23 , Sex male, [...] - 06/05/18 Dr. Marco A De Leon ph#[phone], fx#[phone] 01/13: nausea and lack of appetite persist- RX for b&b sent to [facility] for patient to moss picker today Will request EGD/rectal biopsies RTC: (cbc,cmp,mag,vre) * Candice Funes, PHARMD - 01/13/2018 10:30 AM CDT Discontinued from Oral Oncology Pharmacy Program due to Completion of Therapy Lyndon Bautista has discontinued taking tacrolimus due to completion of therapy. No further follow up is needed with the patient at this time, so they have been removed from the Oral Oncology Patient Management Program. Candice Funes, PHARMD Clinical Pharmacist 01/13/18 * Sarah Fischer, ANDREA - 01/13/2018 10:30 AM CDT Formatting of this note may be different from the original. Date of Service: 01/13/2018 Day +222 MUD for MDS-RAEB Subjective: Reports feeling very fatigued. Ongoing nausea and anorexia for the last six weeks. His nausea is constant, he eats because "he has to", but reports no appetite. Denies vomiting, no dysphagia, or diarrhea. Has ongoing upper abdominal discomfort, no cramping. Has lost about 2 KG in the last 6 weeks. Denies fevers, shortness of air, cough. No rashes or lesion. Eyes irritated at times, used restasis with improvement in sx. Heme/Onc Care Reason for Visit: Follow-up post [...] Source: Bone Marrow Graft Manipulation: Not Applicable [facility] DID: [id number] Donor Information: Age 23 , Sex male, HLA-Match: 8 of 8 HLA Antibody Screen: Negative CMV Status: Donor - Negative; Recipient - Negative Blood Type: Donor - O Positive ; Recipient - A Positive Consents / Study# / Protocol#: 8322, chemotherapy, blood, allogeneic, storage/ processing Pretransplant Coordinator: Maurilio Kilgore RN -MR: [id number] APPOINTMENT: Future Appointments Date Time Provider Department Center 04/08/2017 11:30 AM BMT FINANCIAL COORD 3 BMTEXM None 04/08/2017 11:50 AM Brian Gudino DO BMTEXM None 04/08/2017 1:00 PM BMT EXAM LAB BMTEXM None REFERRING PHYSICIAN: Marco A Sanford FACILITY: [facility] CONTACT NAME: Monet PHONE: [phone] INSURANCE: Medicare/[facility] Allergies: NKA Family Hx: M lung [...] Patient wanting to wait until after his long term before attending this consult appointment and therefore [...] 36.3, platelets 157 Review of Systems Constitutional: Very fatigued. No fevers HENT: No congestion, dental problem, ear discharge, ear pain, tinnitus, facial swelling, mouth sores, postnasal discharge, rhinorrhea, sinus pressure, sore throat, trouble swallowing, or voice change Eyes: dry eyes, no visual changes,no eye discharge, redness, pain, photophobia, CVS: No chest pain, edema, or palpitations Respiratory: No shortness of breath, wheezing, cough, hemoptysis, or chest tightness Abdomen: Ongoing nausea and abdominal discomfort for several weeks : No dysuria, flank pain, frequency, hematuria, urgency MSK: No arthralgias, +back pain resolved. S/p Kyphoplasty Endocrine: No cold/ heat intolerance, polyuria, polydipsia, or polyphagia asthenia Dermatology: No dry skin, no rash Neurology: No headaches, dizziness, facial asymmetry, seizures, speech difficulty, weakness, tremors, light headedness, or syncope. Hematologic: No bruising, swelling, or adenopathy Psych: No behavior problem, confusion, mood changes, hallucinations, nervous/ anxiety, sleep disturbances, or suicidal ideation. Objective: acyclovir (ZOVIRAX) 800 mg tablet Take 1 tablet by mouth twice a day. Beclomethasone Dipropionate in [place] Oil 2mg/ml solution Take 1 mL by [...] daily. tacrolimus (PROGRAF) 0.5 mg capsule Take 0.5mg twice daily- follow tac taper provided by pharmD on 11/18/17 traMADol (ULTRAM) 50 mg tablet Take 50 mg by mouth daily as needed for Pain. Vitals: 01/13/18 0958 BP: 151/72 Pulse: 72 Resp: 17 Temp: 36.6 C (97.8 F) TempSrc: Oral SpO2: 96% Weight: 74.7 kg (164 lb 9.6 oz) Height: 180.3 cm (70.98") Body mass index is 22.97 kg/m. Pain Score: Zero Pain Addressed: N/A Patient Evaluated for a Clinical Trial: Patient not eligible for a treatment trial (including not needing treatment, needs palliative care, in remission). Karnofsky Scale: 80% Normal activity with effort; some symptoms of disease Physical Exam Constitutional: He is [...] with Diff Latest Ref Rng & Units 01/13/2018 12/30/2017 12/16/2017 12/09/20172017 WBC 4.5 - 11.0 K/UL 4.7 6.2 5.1 5.7 5.7 RBC 4.4 - 5.5 M/UL 3.11(L) 3.24(L) 3.08(L) 3.02(L) 2.91(L) HGB 13.5 - 16.5 GM/DL 12.1(L) 12.5(L) 12.2(L) 12.0(L) 11.4(L) HCT 40 - 50 % 34.8(L) 36.5(L) 34.2(L) 33.3(L) 32.1(L) MCV 80 - 100 FL 112.0(H) 112.5(H) 111.0(H) 110.3(H) 110.3(H) MCH 26 - 34 PG 39.0(H) 38.6(H) 39.6(H) 39.7(H) 39.3(H) MCHC 32.0 - 36.0 G/DL 34.8 34.3 35.7 36.0 35.6 RDW 11 - 15 % 12.1 13.4 14.1 15.0 15.9(H) PLT 150 - 400 K/UL 220 237 266 263 236 MPV 7 - 11 FL 6.5(L) 6.7(L) 6.6(L) 6.8(L) 6.4(L) NEUT 41 - 77 % 70 74 - 77 76 ANC 1.8 - 7.0 K/UL 3.30 4.60 - 4.40 4.30 LYMA 24 - 44 % 11(L) 8(L) - 7(L) 8(L) ALYM 1.0 - 4.8 K/UL 0.50(L) 0.50(L) - 0.40(L) 0.50(L) JERMAINE 4 - 12 % 12 13(H) - 14(H) 15(H) AMONO 0 - 0.80 K/UL 0.60 0.80 - 0.80 0.90(H) EOSA 0 - 5 % 6(H) 4 - 1 1 AEOS 0 - 0.45 K/UL 0.30 0.30 - 0.10 0.10 BASA 0 - 2 % 1 1 - 1 0 ABAS 0 - 0.20 K/UL 0.00 0.00 - 0.00 0.00 Comprehensive Metabolic Profile CMP Latest Ref Rng & Units 01/13/2018 12/30/2017 12/16/2017 12/09/2017 11/25/2017 NA 137 - 147 MMOL/L 135(L) 136(L) 135(L) 135(L) 138 K 3.5 - 5.1 MMOL/L 3.7 4.4 4.0 4.2 3.9 CL 98 - 110 MMOL/L 104 103 103 103 105 CO2 21 - 30 MMOL/L 27 26 26 26 28 GAP 3 - 12 4 7 6 6 5 BUN 7 - 25 MG/DL 12 11 11 10 13 CR 0.4 - 1.24 MG/DL 0.79 0.79 0.87 0.92 0.91 GLUX 70 - 100 MG/DL 147(H) 103(H) 144(H) 130(H) 97 CA 8.5 - 10.6 MG/DL 9.5 9.8 9.5 9.6 9.5 TP 6.0 - 8.0 G/DL 6.2 6.5 6.2 6.4 6.2 ALB 3.5 - 5.0 G/DL 3.9 4.1 4.2 4.1 3.9 ALKP 25 - 110 U/L 113(H) 102 91 82 86 ALT 7 - 56 U/L 45 33 14 15 15 TBILI 0.3 - 1.2 MG/DL 0.7 0.6 0.4 0.5 0.4 GFR >60 mL/min >60 >60 >60 >60 [...] myeloid blasts - Chimerism:. Missed d#30 chimerism, d#49=771% donor, day#60=98% donor - Day 100 BMBx: [...] - D#180 BM, in CR, 100% donor. Sending PB for repeat lineage specific chimerism 01/13 pending Heme: - Engrafted. -Mild eosinophilia - Transfusion independent. ID: - Afebrile. No active infections. - Continue antiinfective prophylaxis with acyclovir,and bactrim. - CMV -/-, monitoring not needed. CVS: - Hypertension moderate and not controlled. [...] Stable. present and very supportive. GVHD: cGVHD- ?Possible GI. Comments:Patient with persistent GI symptoms; nausea and anorexia, some weight loss. Concerning for cGVHD. EGD and sigmoidoscopy scheduled for next week. -Started local steroids with B&B 01/13/18 Treatment: -Was previously on prednisone 09/23 through [...] Other Hematologic Involvement No No No RTC: next week for provider, labs, and scopes. in this encounter Plan of Treatment Name Priority Associated Diagnoses Order Schedule CBC AND DIFF Routine MDS (myelodysplastic Expected: 01/27/2018 syndrome), high grade (Approximate), Expires: ([facility]) 01/13/2019 H/O bone marrow transplant ([facility]) COMPREHENSIVE METABOLIC PANEL Routine MDS (myelodysplastic Expected: syndrome), high grade (Approximate), Expires: ([facility]) 01/13/2019 H/O bone marrow transplant ([facility]) MAGNESIUM Routine MDS (myelodysplastic Expected: 01/27/2018 syndrome), high grade (Approximate), Expires: ([facility]) 01/13/2019 H/O bone marrow transplant ([facility]) Name Priority Associated Diagnoses Order Schedule AMB REFERRAL TO GI LAB FOR PROCEDURE Routine MDS (myelodysplastic Ordered: 01/13/2018 syndrome), high grade (HCC) H/O bone marrow transplant ([facility]) Nausea Lack of appetite as of this encounter Visit Diagnoses Diagnosis MDS (myelodysplastic syndrome), high grade (HCC) - Primary High grade myelodysplastic syndrome lesions H/O bone marrow transplant (HCC) Bone marrow replaced by transplant Nausea Nausea alone Lack of appetite Anorexia Fatigue due to exposure, subsequent encounter Essential hypertension Unspecified essential hypertension 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
--- OUTSIDE RECORDS SUMMARY | 2018-04-01 19:27 | XMS REPORT | Encounter Summary ---
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), high grade [address] (HCC) (Primary Dx); [address] [place] [address] [place] [address] transplant (HCC); [phone] Essential hypertension; Fatigue due to exposure, subsequent encounter; Other group home (current) drug therapy ; Vitamin D deficiency ; Therapeutic drug monitoring; Hypokalemia; Pancytopenia due to antineoplastic chemotherapy (HCC); Drug-induced polyneuropathy (HCC) Social History Tobacco Use Types Packs/Day Years Used Date Former Smoker Cigars 1 5 Quit: 03/24/2003 Smokeless Tobacco: Never Used Alcohol Use Drinks/Week oz/Week Comments No 6 Cans of 3.6 beer Sex Assigned at Date Recorded Not on file as of this encounter Last Filed Vital Signs Vital Sign Reading Time Taken Blood Pressure 155/78 12/30/2017 9:36 AM CDT Pulse 72 12/30/2017 9:36 AM CDT Temperature 36.8 C (98.2 F) 12/30/2017 9:36 AM CDT Respiratory Rate 14 12/30/2017 9:36 AM CDT Oxygen Saturation 99% 12/30/2017 9:36 AM CDT Inhaled Oxygen - - Concentration Weight 75.7 kg (166 lb 12.8 oz) 12/30/2017 9:36 AM CDT Height 180.3 cm (5' 10.98") 12/30/2017 9:36 AM CDT Body Mass Index 23.27 12/30/2017 9:36 AM CDT in this encounter Functional Status [...] Progress Notes * Narcisa Singh RN - 12/30/2017 9:50 AM CDT Date of Transplant: 06/04/2017 Day+208 Transplant Type: Allogeneic Unrelated Conditioning Regimen: Bu/flu Conditioning Regimen Type: Reduced Intensity Rationale for reduced/NST regimen: age Diagnosis/Stage: MDS - RAEB-2 Disease Status at Transplant: SD (Stable Disease) Cytogenetic/Fish AT DIAGNOSIS: 02/28/2016 CTYO: 45,X,-Y[7]46,XY[13]; FISH not performed at time of diagnosis. Cyto and FISH from 09/2016 normal Stem Cell Source: Bone Marrow Graft Manipulation: Not Applicable [facility] DID: [id number] Donor Information: Age 23 , Sex male, [...] - 06/05/18 Dr. Marco A De Leon ph#[phone], fx#[phone] 12/30: 180 day results review- 100 % donor, remission Repeat lineage specific with next visit Has not started dapsone yet, will draft roller picker at his local [facility] today RTC: (cbc,cmp,mag,vre) 2 weeks for provider, lab * Brian Gudino DO - 12/30/2017 9:50 AM CDT Formatting of this note may be different from the original. Date of Service: 12/30/2017 Day +208 MUD for MDS-RAEB Subjective: Reports feeling well, back pain markedly improved, skin less dry, sleeping better. No chief complaint on file. Reason for [...] Source: Bone Marrow Graft Manipulation: Not Applicable [facility] DID: [id number] Donor Information: Age 23 , Sex male, HLA-Match: 8 of 8 HLA Antibody Screen: Negative CMV Status: Donor - Negative; Recipient - Negative Blood Type: Donor - O Positive ; Recipient - A Positive Consents / Study# / Protocol#: 8322, chemotherapy, blood, allogeneic, storage/ processing Pretransplant Coordinator: Maurilio Kilgore RN -MR: [id number] APPOINTMENT: Future Appointments Date Time Provider Department Center 04/08/2017 11:30 AM BMT FINANCIAL COORD 3 [facility] None 04/08/2017 11:50 AM Brian Gudino, [facility] None 04/08/2017 1:00 PM BMT EXAM LAB [facility] None REFERRING PHYSICIAN: Marco A Sanford FACILITY: [facility] CONTACT NAME: Monet PHONE: [phone] INSURANCE: Medicare/[facility] Allergies: NKA Family Hx: M [...] Patient wanting to wait until after his care home before attending this consult appointment and therefore [...] platelets 157 Review of Systems Constitutional: no fatigue, no fevers, night sweats or weight loss HENT: No congestion, dental problem, ear discharge, ear pain, tinnitus, facial swelling, mouth sores, postnasal discharge, rhinorrhea, sinus pressure, sore throat, trouble swallowing, or voice change Eyes: dry eyes, no visual changes,no eye discharge, redness, pain, photophobia, CVS: No chest pain, edema, or palpitations Respiratory: No shortness of breath, wheezing, cough, hemoptysis, or chest tightness Abdomen: decreased intermittent nausea, no vomiting or diarrhea. : No dysuria, flank pain, frequency, hematuria, urgency MSK: No arthralgias, +back pain, but much improved. Kyphoplasty has now helped. No joint swelling, myalgias, neck pain or stiffness [...] 1 tablet by mouth twice a day. cyclosporine (RESTASIS) 0.05 % ophthalmic emulsion Apply 1 drop to both eyes twice daily. dapsone 100 mg tablet Take 1 tablet by mouth daily. losartan (COZAAR) 50 mg tablet Take 2 tablets by mouth daily. metoprolol tartrate (LOPRESSOR) 25 mg tablet Take 1 tablet by mouth twice daily. pantoprazole DR (PROTONIX) 40 mg tablet Take 1 tablet by mouth daily. tacrolimus (PROGRAF) 0.5 mg capsule Take 0.5mg twice daily- follow tac taper provided by pharmD on 11/18/17 traMADol (ULTRAM) 50 mg tablet Take 50 mg by mouth daily as needed for Pain. Vitals: 12/30/17 0936 BP: 155/78 Pulse: 72 Resp: 14 Temp: 36.8 C (98.2 F) TempSrc: Oral SpO2: 99% Weight: 75.7 kg (166 lb 12.8 oz) Height: 180.3 cm (70.98") Body mass index is 23.27 kg/m. Pain Score: Zero Pain Addressed: N/A [...] normal. Skin: Skin is warm and dry. No rash noted. Psychiatric: He has a normal mood and affect. His behavior is normal. Judgment and thought content normal. Cognition and memory are normal. Nursing note and vitals reviewed. CBC w/DIFF CBC with Diff Latest Ref Rng & Units 12/30/2017 12/16/2017 12/09/2017 11/25/20172017 WBC 4.5 - 11.0 K/UL 6.2 5.1 5.7 5.7 4.8 RBC 4.4 - 5.5 M/UL 3.24(L) 3.08(L) 3.02(L) 2.91(L) 2.84(L) HGB 13.5 - 16.5 GM/DL 12.5(L) 12.2(L) 12.0(L) 11.4(L) 11.1(L) HCT 40 - 50 % 36.5(L) 34.2(L) 33.3(L) 32.1(L) 31.3(L) MCV 80 - 100 FL 112.5(H) 111.0(H) 110.3(H) 110.3(H) 110.2(H) MCH 26 - 34 PG 38.6(H) 39.6(H) 39.7(H) 39.3(H) 39.1(H) MCHC 32.0 - 36.0 G/DL 34.3 35.7 36.0 35.6 35.5 RDW 11 - 15 % 13.4 14.1 15.0 15.9(H) 15.7(H) PLT 150 - 400 K/UL 237 266 263 236 214 MPV 7 - 11 FL 6.7(L) 6.6(L) 6.8(L) 6.4(L) 6.9(L) NEUT 41 - 77 % 74 - 77 76 74 ANC 1.8 - 7.0 K/UL 4.60 - 4.40 4.30 3.50 LYMA 24 - 44 % 8(L) - 7(L) 8(L) 9(L) ALYM 1.0 - 4.8 K/UL 0.50(L) - 0.40(L) 0.50(L) 0.40(L) JERMAINE 4 - 12 % 13(H) - 14(H) 15(H) 16(H) AMONO 0 - 0.80 K/UL 0.80 - 0.80 0.90(H) 0.80 EOSA 0 - 5 % 4 - 1 1 1 AEOS 0 - 0.45 K/UL 0.30 - 0.10 0.10 0.00 BASA 0 - 2 % 1 - 1 0 0 ABAS 0 - 0.20 K/UL 0.00 - 0.00 0.00 0.00 Comprehensive Metabolic Profile CMP Latest Ref Rng & Units 12/30/2017 12/16/2017 12/09/2017 11/25/2017 11/18/2017 NA 137 - 147 MMOL/L 136(L) 135(L) 135(L) 138 137 K 3.5 - 5.1 MMOL/L 4.4 4.0 4.2 3.9 4.4 CL 98 - 110 MMOL/L 103 103 103 105 104 CO2 21 - 30 MMOL/L 26 26 26 28 27 GAP 3 - 12 7 6 6 5 6 BUN 7 - 25 MG/DL 11 11 10 13 17 CR 0.4 - 1.24 MG/DL 0.79 0.87 0.92 0.91 1.03 GLUX 70 - 100 MG/DL 103(H) 144(H) 130(H) 97 104(H) CA 8.5 - 10.6 MG/DL 9.8 9.5 9.6 9.5 9.5 TP 6.0 - 8.0 G/DL 6.5 6.2 6.4 6.2 6.2 ALB 3.5 - 5.0 G/DL 4.1 4.2 4.1 3.9 3.9 ALKP 25 - 110 U/L 102 91 82 86 94 ALT 7 - 56 U/L 33 14 15 15 18 TBILI 0.3 - 1.2 MG/DL 0.6 0.4 0.5 0.4 0.4 GFR >60 mL/min >60 >60 >60 >60 >60 GFRAA >60 mL/min >60 >60 >60 >60 >60 Assessment and Plan: Date of Transplant: 06/04/2017 Transplant Type: Allogeneic Unrelated Conditioning Regimen: Bu/flu Conditioning Regimen Type: Reduced Intensity Rationale for reduced/NST regimen: age Diagnosis/Stage: MDS - RAEB-2 Disease Status at Transplant: SD (Stable Disease) Cytogenetic/Fish AT DIAGNOSIS: 02/28/2016 CTYO: 45,X,-Y[7]46,XY[13]; FISH not performed at time of diagnosis. Cyto and FISH from 09/2016 normal Stem Cell Source: Bone Marrow Graft Manipulation: Not Applicable [facility] DID: [id number] Donor Information: Age 23 , Sex male, HLA-Match: 8 of 8 HLA Antibody Screen: Negative CMV Status: Donor - Negative; Recipient - Negative Blood Type: Donor - O Positive ; Recipient - A Positive Consents / Study# / Protocol#: 8322, chemotherapy, blood, allogeneic, storage/ processing Pretransplant Coordinator: Maurilio Kilgore RN Primary Disease: MDS RAEB1 with progressive cytopenias received azacytidine, S/ P MUD male donor marrow source BUFLU conditioning Day+187. - Enrolled on BMT-CTN 1102. - Bone marrow 04/08 shows 40% cellular, 8% blasts, no markers on NGS, and -Y cytogenetics. - Pretransplant bone marrow: normocellular, 40% cellularity with decreased granulopoiesis and 4% blasts on morphology. Flow: 2.2% neoplastic myeloid blasts - Chimerism:. Missed d#30 chimerism, d#04=032% donor, day#60=98% donor - Day 100 BMBx: Normocellular marrow (30-40%), normal appearing trilineage hematopoiesis, and less than 1% blasts. Flow cytometry: negative. Cytogenetics was normal. Chimerism Day 100 showed 99% donor. - Day 100 immunereconstitution: IgG 563, IgA 143 and IgM 64. CD4 126 and CD8 28 - Day 100 PFT was normal - Repeat BM 10 in CR. Normal cytogenetics, - Chimerism /: down to 96% from 99% at Day 100. - 11/09: 100% donor Cd33, 53% donor CD3, Begin 3 month tac taper, repeat chimerism lineage specific 100% myeloid, 68% lymphoid - D#180 BM, in CR, 100% donor. Sending PB for repeat lineage specific chimerism at next visit Heme: - Engrafted. - Transfusion independent. ID: - Afebrile. No active infections. - Continue antiinfective prophylaxis with acyclovir,and bactrim. Antifungals recently stopped (11/04) when steroids were tapered off. - CMV -/-, monitoring not needed. - Day 180 immune reconstitution as above. CVS: - Hypertension moderate. - He was started on Losartan 50 mg daily. Dose increased to 100 mg Qday on 10/14. Continue lopressor 25mg BID. - Pretransplant 2 D Echo- normal, EF 60% Pulmonary: - Asymptomatic, PFT's normal - CT chest 05/20: 3 mm nodular opacity in right upper lobe- indeterminate FEN: - Replace electrolytes per BMT standard protocol. - Renal function normal. - Peripheral edema resolved. Resolved, dc aldactone - Appetite reduced, weight stable. GI: - No diarrhea, Nausea -GERD- heart burn, on pantoprazole - Ursodiol stopped at Day +100 per protocol. : - Nocturia up every 2 hours. Worsened after BMBx on 09/14 - Also has low back pain. MRI low back 10/28 showing compression fracture at L1 and multiple degenerative changes. Skin: - Resolved erythematous rash. Skin less dry - Will treat with topical steroids. Watch for progression/recurrence with tac taper MSK: - Intermittent low back pain that has been ongoing from 2016, but significantly worse since 09/14 after bone marrow biopsy. - Finds hard to lay down flat tramadol helps with the pain. - MRI obtained 10/28. : Mild compression fracture of L1. Posterior protrusion of a fragment posterior superior vertebral body to the right of midline. This causes impression on the thecal sac. The bone marrow signal pattern of this lesion suggests an osteoporotic or traumatic compression fracture rather than a pathologic fracture. Acute appearing Schmorl's node formation involving the inferior endplate of L2. Heterogeneity of the bone marrow signal involving the left ilium. This may be secondary to marrow changes associated with multiple prior bone marrow biopsies. The bone marrow signal alteration may be in part due to the patient's underlying disease process.Multilevel degenerative changes involving the lumbar spine as discussed above. - Seen in spine clinic locally, planned for kyphoplasty. He is also immune suppressed; on tacrolimus. - History of polyarticular pseudo gout upon engraftment, symptoms worsened on steroid taper. - Treated with prednisone, had referral to rheumatology, completed taper 2016. - Kyphoplasty last week, now significant improvement in pain Neuro: - Peripheral neuropathy in his feet R>L. Predominantly toes of left foot and whole foot/ankle on right. - Has tingling/numbness. Affects his gait, hx of multiple falls, now walking with cane. Eyes: - Blurred vision for over a month, with watery eyes - Eval by [facility] 09/14, diagnosed with dry eyes on restasis eye drops,not very helpful. So received pred eye gtts briefly. Psy: - Stable. present and very supportive. 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 Comments:Patient with persistent skin dryness on his torso and extremities.GI symptoms. Concerning for early cGVHD. Plan to hold tac taper and re-eval in 1 week. EGD and sigmoidoscopy 09/24 were grossly normal. 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 Treatment: Corticosteroids 2mg/kg started 09/23. 09/28: Skin and GI symptoms resolved. Pred taper started 09/28. Stopped prednisone 11/04/17. - Underwent brisk taper done due to falling chimerism and worsening cytopenias - topical steroids- clobetasol and hydrocortisone prn. Continue to monitor closely. - Tac taper to facilitate increase in donor CD3, pt at high risk for GVHD flare , follow weekly. - Methotrexate: Day +1,3, 6 and 11 cGVHD Some values may be hidden. Unless noted otherwise, only the newest values recorded on each date are displayed. cGVHD 11/09/17 11/18/17 Maximum Grade of Chronic Graft vs Host Disease Extensive Limited Overall Severity of Chronic Graft vs Host Disease Moderate Mild Sclerosis of Skin No No Other Skin or Hair Involvement Rash scaling None Eyes Xerophthalmia (Dry Eyes) Xerophthalmia (Dry Eyes) Mouth None None Bronchiolitis Obliterans No No Other Lung Involvement No No Gastrointestinal Tract Chronic diarrhea intermittent None Liver No No Genitourinary Tract None None Musculoskeletal None None Thrombocytopenia Yes No Eosinophilia No No Autoantibodies No No Other Hematologic Involvement No No RTC: 1 week in this encounter Plan of Treatment Name Priority Associated Diagnoses Order Schedule CBC AND DIFF Routine MDS (myelodysplastic Expected: 06/05/2018 syndrome), high grade (Approximate), Expires: ([facility]) 12/30/2018 H/O bone marrow transplant ([facility]) COMPREHENSIVE METABOLIC PANEL Routine MDS (myelodysplastic Expected: syndrome), high grade (Approximate), Expires: ([facility]) 12/30/2018 H/O bone marrow transplant ([facility]) MAGNESIUM Routine MDS (myelodysplastic Expected: 06/05/2018 syndrome), high grade (Approximate), Expires: ([facility]) 12/30/2018 H/O bone marrow transplant ([facility]) LDH-LACTATE DEHYDROGENASE Routine MDS (myelodysplastic Expected: 2017 syndrome), high grade (Approximate), Expires: ([facility]) 12/30/2018 H/O bone marrow transplant ([facility]) IMMUNOGLOBULINS-IGA,IGG,IGM Routine MDS (myelodysplastic Expected: 06/05 syndrome), high grade (Approximate), Expires: ([facility]) 12/30/2018 H/O bone marrow transplant ([facility]) IRON + BINDING CAPACITY + %SAT+ FERRITIN Routine MDS (myelodysplastic Expected: 06/05/2018 syndrome), high grade (Approximate), Expires: ([facility]) 12/30/2018 H/O bone marrow transplant ([facility]) LIPID PROFILE Routine Other group home (current) Expected: 06/05/2018 drug therapy (Approximate), Expires: MDS (myelodysplastic 12/30/2018 syndrome), high grade (HCC) H/O bone marrow transplant ([facility]) TESTOSTERONE,TOTAL Routine MDS (myelodysplastic Expected: 06/05/2018 syndrome), high grade (Approximate), Expires: ([facility]) 12/30/2018 H/O bone marrow transplant ([facility]) Essential hypertension Fatigue due to exposure, subsequent encounter THYROID STIMULATING HORMONE-TSH Routine MDS (myelodysplastic Expected: 06/05/2018 syndrome), high grade (Approximate), Expires: ([facility]) 12/30/2018 H/O bone marrow transplant ([facility]) Essential hypertension Fatigue due to exposure, subsequent encounter 25-OH VITAMIN D (D2 + D3) Routine Vitamin D deficiency Expected: 2017 MDS (myelodysplastic (Approximate), Expires: syndrome), high grade 12/30/2018 ([facility]) H/O bone marrow transplant ([facility]) Essential hypertension Fatigue due to exposure, subsequent encounter T&B CELL PANEL,BLOOD Routine MDS (myelodysplastic Expected: 06/05/2018 syndrome), high grade (Approximate), Expires: ([facility]) 12/30/2018 H/O bone marrow transplant ([facility]) Essential hypertension Fatigue due to exposure, subsequent encounter BONE MARROW ASPIRATION PROCEDURE Routine MDS (myelodysplastic Expected: 06/05/2018, syndrome), high grade Expires: 12/30/2018 (HCC) H/O bone marrow transplant ([facility]) BIOPSY BONE MARROW PROCEDURE Routine MDS (myelodysplastic Expected: , syndrome), high grade Expires: 12/30/2018 ([facility]) H/O bone marrow transplant ([facility]) BONE MARROW ASP Routine MDS (myelodysplastic Expected: 06/05/2018, syndrome), high grade Expires: 12/30/2018 ([facility]) H/O bone marrow transplant ([facility]) BONE MARROW BIOPSY Routine MDS (myelodysplastic Expected: 06/05/2018, syndrome), high grade Expires: 12/30/2018 ([facility]) H/O bone marrow transplant ([facility]) LEUKEMIA/LYMPHOMA PNL, BONE MARROW Routine MDS (myelodysplastic Expected : 06/05/2018, syndrome), high grade Expires: 12/30/2018 ([facility]) H/O bone marrow transplant ([facility]) MOLECULAR ENGRAFTMENT ANALYSIS BONE Routine MDS (myelodysplastic Expected: 06/05/2018, MARROW syndrome), high grade Expires: 12/30/2018 ([facility]) H/O bone marrow transplant ([facility]) CHROMOSOMES BONE MARROW Routine MDS (myelodysplastic Expected: 2017, syndrome), high grade Expires: 12/30/2018 ([facility]) H/O bone marrow transplant ([facility]) as of this encounter Results * LYMPHOID ENGRAFTMENT ANALYSIS BLOOD (01/13/2018 9:53 AM) Component Value Ref Range Lymploid Engraftment SEE FENDER MECHANIC FOR REPORT Analysis BLD TEST PERFORMED BY [facility] Specimen Performing Laboratory Blood REFERENCE LAB * MYELOID ENGRAFTMENT ANALYSIS BLD (01/13/2018 9:53 AM) Component Value Ref Range Myeloid Engraftment SEE FENDER MECHANIC FOR REPORT Analysis BLD Specimen Performing Laboratory Blood [facility]FER[facility] * MAGNESIUM (01/13/2018 9:53 AM) Component Value Ref Range Magnesium 1.8 1.6 - 2.6 mg/dL Specimen Performing Laboratory Blood [facility] [address] [place] [address] * COMPREHENSIVE METABOLIC PANEL (01/13/2018 9:53 AM) [...] Pharmacist for questions. Specimen Performing Laboratory Blood [facility] [address] [place] [address] * CBC AND DIFF (01/13/2018 9:53 AM) [...] - 0.20 K/UL Specimen Performing Laboratory Blood [facility] [address] [place] [address] in this encounter Visit Diagnoses Diagnosis MDS (myelodysplastic syndrome), high grade (HCC) - Primary High grade myelodysplastic syndrome lesions H/O bone marrow transplant (HCC) Bone marrow replaced by transplant Essential hypertension Unspecified essential hypertension Fatigue due to exposure, subsequent encounter Other marine oil terminal superintendent (current) drug therapy Vitamin D deficiency Unspecified vitamin D deficiency Therapeutic drug monitoring Encounter for therapeutic drug monitoring Hypokalemia Hypopotassemia Pancytopenia due to antineoplastic chemotherapy (HCC) Antineoplastic chemotherapy induced pancytopenia Drug-induced polyneuropathy (HCC) Polyneuropathy due to drugs
--- OUTSIDE RECORDS SUMMARY | 2018-04-01 19:27 | XMS REPORT | Encounter Summary ---
Author Author [facility] Organization [facility] Address Unknown Phone Unavailable Care Team Providers Care Core Composer Feeder Name Role Phone MarquesMirna garnett PCP Marco A Sanford MD [id number] Encounter Details Date Type Department Care Team Description 01/13/2018 Pharmacy Visit [facility] [address] [place] [address] Social History Tobacco Use Types Packs/Day Years [...]
--- OUTSIDE RECORDS SUMMARY | 2018-04-01 19:27 | XMS REPORT | Encounter Summary ---
Author Author [facility] Organization [facility] Address Unknown Phone Unavailable Care Team Providers Care Electric Deicer Assembler Name Role Phone Mirna Marques DO PCP Marco A Sanford MD [phone] Reason for Visit * Reason Comments Heme/Onc Care Encounter Details Date Type Department Care Team Description 12/30/2017 Nurse Only [facility] Brian Gudino DO H/ O bone marrow [facility] - BMT Exam [address] [facility] transplant (HCC) [address] [place] [address] [place] [phone] Social History Tobacco Use Types Packs/Day Years [...] fileas of this encounter Results * MAGNESIUM (12/30/2017 9:28 AM) Component Value Ref Range Magnesium 2.0 1.6 - 2.6 mg/dL Specimen Performing Laboratory Blood [facility] [address] [place] [address] * COMPREHENSIVE METABOLIC PANEL (12/30/2017 9:28 AM) Component Value Ref Range Sodium 136 (L) 137 - 147 MMOL/L Potassium 4.4 3.5 - 5.1 MMOL/L Chloride 103 98 - 110 MMOL/L Glucose 103 (H) 70 - 100 MG/DL Blood Urea Nitrogen 11 7 - 25 MG/DL Creatinine 0.79 0.4 - 1.24 MG/DL Calcium 9.8 8.5 - 10.6 MG/DL Total Protein 6.5 6.0 - 8.0 G/DL Total Bilirubin 0.6 0.3 - 1.2 MG/DL Albumin 4.1 3.5 - 5.0 G/DL Alk Phosphatase 102 25 - 110 U/L AST (SGOT) 35 7 - 40 U/L CO2 26 21 - 30 MMOL/L ALT (SGPT) 33 7 - 56 U/L Anion Gap 7 3 - 12 eGFR Non >60 >60 [...] Pharmacist for questions. Specimen Performing Laboratory Blood [facility] [address] [place] [address] * CBC AND DIFF (12/30/2017 9:28 AM) Component Value Ref Range White Blood Cells 6.2 4.5 - 11.0 K/UL RBC 3.24 (L) 4.4 - 5.5 M/UL Hemoglobin 12.5 (L) 13.5 - 16.5 GM/DL Hematocrit 36.5 (L) 40 - 50 % MCV 112.5 (H) 80 - 100 FL MCH 38.6 (H) 26 - 34 PG MCHC 34.3 32.0 - 36.0 G/DL RDW 13.4 11 - 15 % Platelet Count 237 150 - 400 K/UL MPV 6.7 (L) 7 - 11 FL Neutrophils 74 41 - 77 % Lymphocytes 8 (L) 24 - 44 % Monocytes 13 (H) 4 - 12 % Eosinophils 4 0 - 5 % Basophils 1 0 - 2 % Absolute Neutrophil Count 4.60 1.8 - 7.0 K/UL Absolute Lymph Count 0.50 (L) 1.0 - 4.8 K/UL Absolute Monocyte Count 0.80 0 - 0.80 K/UL Absolute Eosinophil Count 0.30 0 - 0.45 K/UL Absolute Basophil Count 0.00 0 - 0.20 K/UL Specimen Performing Laboratory Blood [facility] [address] [place] [address] in this encounter Visit Diagnoses Diagnosis H/O bone marrow transplant (HCC) Bone marrow replaced by transplant
--- OUTSIDE RECORDS SUMMARY | 2018-04-01 19:29 | XMS REPORT | Clinical Summary ---
Author Author User, [email or web address] Mirna Marques DO, FACP Address Unknown Phone Allergies, Adverse Reactions, Alerts Allergy Name Reaction Description Start Date Severity Status Provider No Known Allergies Shelton Orellana Conditions or Problems Problem Name Problem Code Onset Date Status Entry Date Provider Comment Standard Description Annotate HYPERTENSION 401.1 Active Mirna Marques Benign essential hypertension HYPERCHOLESTEROLEMIA 272.0 Active Mirna Marques Pure hypercholesterolemia BENIGN PROSTATIC HYPERTROPHY, HX OF V13.8 Active Mirna Marques Personal history of other specified diseases ERECTILE DYSFUNCTION, 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 Mirna Marques Impotence of organic origin POLYARTHRALGIA 719.49 Resolved Mirna Marques Pain in joint involving multiple sites OSTEOARTHRITIS 715.90 Active Mirna Marques Osteoarthrosis, unspecified whether generalized or localized, involving unspecified site NEUROPATHY, IDIOPATHIC PERIPHERAL 356.9 Resolved Mirna Marques Unspecified idiopathic peripheral neuropathy TRANSAMINASES, SERUM, ELEVATED 790.4 Resolved Mirna Marques Nonspecific elevation of levels of transaminase or lactic acid dehydrogenase [LDH] CHOLELITHIASIS 574.20 Resolved Mirna Marques Calculus of gallbladder without mention of cholecystitis, without mention of obstruction ANEMIA, IRON DEFICIENCY NEC 280.8 Active Mirna Marques Other specified iron deficiency anemias HEALTH SCREENING V70.0 Resolved Mirna Marques Routine general medical examination at a health care facility SINUSITIS, SPHENOIDAL, ACUTE 461.3 Resolved Mirna Marques Acute sphenoidal sinusitis HEALTH SCREENING V70.0 Resolved Mirna Marques Routine general medical examination at a health care facility 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 CHEST PAIN, ATYPICAL 786.59 Active Mirna Marques Other chest pain GERD 530.81 Active Mirna Marques Esophageal reflux SINUSITIS, SPHENOIDAL, ACUTE 461.3 Inactive Mirna Marques Acute sphenoidal sinusitis LEUKOCYTOPENIA, UNSPECIFIED 288.50 Active Mirna Marques Leukocytopenia, unspecified Medication List Medication Instructions Start Date Stop Date Generic Name NDC Status Provider Patient Instruction CARAFATE 1 GM TABS 1 PO 30 minutes before meals and at bedtime SUCRALFATE 61346609335 No Longer Active Mirna Marques ASPIRIN 325 MG TAB 1 PO QD OTC ASPIRIN 54201370907 No Longer Active Mirna Marques PRAVASTATIN SODIUM 40 MG TABS 1 po daily PRAVASTATIN SODIUM 33425208889 No Longer Active Mirna LEWIS NASAL SPRAY (DEXAMETHASONE, GENTAMICIN, SALINE) 2 puffs each nostril TID for [address] LEWIS NASAL SPRAY ( DEXAMETHASONE, GENTAMICIN, SALINE) No Longer Active Mirna Marques CEFDINIR 300 MG CAPS 1 PO BID CEFDINIR 79223640243 No Longer Active Mirna Marques NEXIUM 40 MG CPDR 1 PO QD ESOMEPRAZOLE MAGNESIUM 73974925349 Active Mirna Marques NEXIUM 40 MG CPDR 1 PO BID ESOMEPRAZOLE MAGNESIUM 30165631713 No Longer Active Mirna Marques FERROUS SULFATE CR 325 MG TBCR 1 PO twice weekly FERROUS SULFATE Active Mirna Radha Marques SUDAFED 30 MG TAB 1 po q6hrs for 3 days then prn PSEUDOEPHEDRINE HCL 55432229058 No Longer Active Austin Agee PREDNISONE 20 MG TAB 2 pills at once for 2 days then 1 pill daily for 2 days PREDNISONE 02883303260 No Longer Active Austin SCHULTE'S NASAL SPRAY (DEXAMETHASONE, GENTAMICIN, SALINE) 2 puffs each nostril TID for [address] SCHULTE'Donell NASAL SPRAY ( DEXAMETHASONE, GENTAMICIN, SALINE) No Longer Active Austin Agee LEVAQUIN 500 MG TAB 1 PO QD LEVOFLOXACIN 87008524410 No Longer Active Austin Agee TRANSDERM-SCOP 1.5 MG PT72 1 patch behind ear and change every 3 days SCOPOLAMINE BASE 68585787588 No Longer Active Mirna Marques HYDROCHLOROTHIAZIDE 25 MG TAB 1 po daily HYDROCHLOROTHIAZIDE 20941997947 Active Nery Cramertis ALEVE 220 MG TAB 1 PO BID NAPROXEN SODIUM 03209199554 Active Mirnamaranda Marques VIAGRA 100 MG TABS 1/2 tab po prn SILDENAFIL CITRATE 56908594928 No Longer Active Mirnamaranda Marques LEVITRA 20 MG TABS 1 PO as directed VARDENAFIL HCL 33472735859 Active Mirnamaranda Marques DICLOFENAC SODIUM 75 MG TBEC 1 PO BID DICLOFENAC SODIUM 11161448096 No Longer Active Mirnamaranda Marques MOBIC 15 MG TABS 1 PO daily prn MELOXICAM 96545759990 No Longer Active Mirna Radha Marques CVS SAW PALMETTO 160 MG CAPS 1 po QID SAW PALMETTO ( RICARDO ANGELES) 67437483004 No Longer Active Mirna Terrazasner FISH OIL OIL 1 po TID FISH OIL Active Mirna Garcia Marques MULTIVITAMINS TABS 1 po daily MULTIPLE VITAMIN 39775905648 Active Mirna Terrazasner LISINOPRIL 20 MG TABS 1 po daily LISINOPRIL 47435899699 Active Nery Doe Vital Signs Date Name Value Unit Range Description blood pressure, diastolic - 8462-4 60 mm[Hg] BP almanza blood pressure, systolic - 8480-6 120 mm[Hg] BP sys pulse rate E&M - 8867-4 64 /min Heart rate respiratory rate E&M - 9279-1 14 /min Resp rate temperature E&M 98.4 [degF] Body temperature weight E&M - 3141-9 175 [lb_av] Weight Measured blood pressure, diastolic - 8462-4 68 mm[Hg] BP almanza blood pressure, systolic - 8480-6 159 mm[Hg] BP sys pulse rate E&M - 8867-4 70 /min Heart rate respiratory rate E&M - 9279-1 14 /min Resp rate temperature E&M 98.8 [degF] Body temperature weight E&M - 3141-9 179 [lb_av] Weight Measured blood pressure, diastolic - 8462-4 66 mm[Hg] BP almanza blood pressure, systolic - 8480-6 114 mm[Hg] BP sys pulse rate E&M - 8867-4 72 /min Heart rate respiratory rate E&M - 9279-1 14 /min Resp rate temperature E&M 98.1 [degF] Body temperature weight E&M - 3141-9 176 [lb_av] Weight Measured blood pressure, diastolic - 8462-4 70 mm[Hg] BP almanza blood pressure, systolic - 8480-6 130 mm[Hg] BP sys pulse rate E&M - 8867-4 80 /min Heart rate respiratory rate E&M - 9279-1 14 /min Resp rate temperature E&M 98.6 [degF] Body temperature weight E&M - 3141-9 180 [lb_av] Weight Measured blood pressure, diastolic - 8462-4 75 mm[Hg] BP almanza blood pressure, systolic - 8480-6 130 mm[Hg] BP sys pulse rate E&M - 8867-4 80 /min Heart rate respiratory rate E&M - 9279-1 14 /min Resp rate weight E&M - 3141-9 170 [lb_av] Weight Measured Diagnostic Results Date Name Value Unit Range Description Clinical Lists Update: CBC,CMP,CHOL,TRIG,TSH - Chemistry albumin, serum 4.5 g/dL potassium, serum 4.1 mmol/L alkaline phosphatase, serum 71 U/L glucose, plasma fasting 90 mg/dL urea nitrogen, blood 13 mg/dL calcium, serum 9.7 mg/dL sodium, serum 134 mmol/L chloride, serum 97 mmol/L triglyceride, serum, fasting 77 mg/dL cholesterol, serum 208 mg/dL bilirubin, serum, total 0.6 mg/dL carbon dioxide, venous blood 28 mmol/L alanine aminotransferase (SGPT), serum 14 U/L creatinine, serum 0.88 mg/dL aspartate aminotransferase (SGOT), serum 18 U/L ferritin, serum 61 ng/mL protein, total, serum 7.1 g/dL thyroid stimulating hormone, serum 0.77 u[iU]/mL Estimated Glomerular Filtration Rate (calc) 90 mL/min/1.73m2 Clinical Lists Update: CBC,CMP,CHOL,TRIG,TSH - Hematology hematocrit, blood 40.3 % hemoglobin, blood 14.2 g/dL platelet count 213 10*3/mm3 erythrocyte (RBC) count 4.04 10*6/mm3 leukocyte count, blood 1.8 10*3/mm3 mean corpuscular volume, RBC 99.8 fL red blood cell distribution width 12.7 % Clinical Lists Update: CBC,CMP,FLP,Ferritin - Chemistry carbon dioxide, venous blood 30 mmol/L LDL cholesterol, serum 101 mg/dL cholesterol, serum 205 mg/dL bilirubin, serum, total 7.1 mg/dL chloride, serum 97 mmol/L triglyceride, serum, fasting 121 mg/dL calcium, serum 9.7 mg/dL sodium, serum 133 mmol/L urea nitrogen, blood 11 mg/dL cholesterol/HDL ratio, serum, percent 2.6 alkaline phosphatase, serum 61 U/L glucose, plasma fasting 85 mg/dL albumin, serum 4.7 g/dL Estimated Glomerular Filtration Rate (calc) 91 mL/min/1.73m2 alanine aminotransferase (SGPT), serum 20 U/L potassium, serum 5.3 mmol/L HDL cholesterol, serum 80 mg/dL ferritin, serum 87 ng/mL protein, total, serum 7.1 g/dL creatinine, serum 0.87 mg/dL aspartate aminotransferase (SGOT), serum 20 U/L Clinical Lists Update: CBC,CMP,FLP,Ferritin - Hematology erythrocyte (RBC) count 4.17 10*6/mm3 hemoglobin, blood 14.6 g/dL mean corpuscular volume, RBC 100.6 fL platelet count 199 10*3/mm3 hematocrit, blood 42.0 % leukocyte count, blood 2.3 10*3/mm3 red blood cell distribution width 12.4 % Clinical Lists Update: CBC,ESR - Hematology red blood cell distribution width 12.7 % mean corpuscular volume, RBC 101.4 fL hemoglobin, blood 13.5 g/dL hematocrit, blood 39.4 % platelet count 195 10*3/mm3 erythrocyte (RBC) count 3.89 10*6/mm3 leukocyte count, blood 3.1 10*3/mm3 erythrocyte sedimentation rate 1 mm/h Encounters Code Encounter Date Provider Facility CPT-73439 Ofc Vst, Est Level IV 13:11:23 CDT Mirna Marques, DO, FACP CPT-19385 Ofc Vst, Est Level III 17:06:42 CDT Mirna Marques, DO, FACP CPT-45824 Ofc Vst, Est Level IV 19:46:33 [employer] Mirna Marques, DO, FACP CPT-25780 Ofc Vst, Est Level IV 11:57:11 [employer] Mirna Marques, DO, FACP CPT-02355 Ofc Vst, Est Level III 16:06:36 CDT Mirna Marques, DO, FACP CPT-87490 Ofc Vst, Est Level III 15:49:08 CDT Mirna Marques, DO, FACP CPT-05239 Ofc Vst, Est Level III 19:46:55 [employer] Mirna Marques, DO, FACP CPT-97204 Ofc Vst, Est Level IV 10:51:15 CDT Mirna Terrazasner, DO, FACP CPT-03850 Ofc Vst, Est Level V 16:12:53 [employer] Mirna Marques, DO, FACP CPT-58209 Ofc Vst, Est Level IV 10:28:18 [employer] Mirna Marques, DO, FACP CPT-08707 Ofc Vst, Est Level IV 11:31:53 CDT Mirnamaranda Terrazasner, DO, FACP CPT-19487 Ofc Vst, Est Level III 10:53:02 [employer] Mirna Terrazasner, DO, FACP CPT-89865 Ofc Vst, Est Level IV 10:17:19 [employer] Mirna Marley Marques, DO, FACP CPT-45363 Ofc Vst, Est Level IV 11:10:12 CDT Mirna Marques, DO, FACP CPT-87004 Ofc Vst, Est Level IV 15:24:10 [employer] Mirna Marques, DO, FACP CPT-68473 Ofc Vst, New Level III 14:51:27 CDT Mirna Marques, DO, FACP Procedures Code Procedure Name Date Entry Date Standard Description CPT-28277 Preventive, Est, (65+) 15:48:03 [employer]EN[employer] INSPECTOR CPT-26809 Preventive, Est, (40-64) 13:26:05 CDT CPT-76414 Preventive, Est, (40-64) 10:36:03 CDT
--- OUTSIDE RECORDS SUMMARY | 2018-04-01 19:31 | XMS REPORT | Continuity of Care Document ---
Author Author [facility] Organization [facility] Address Unknown Phone Unavailable Allergies Active Description Code Type Severity Reaction Onset Reported/Identified Relationship to Patient Clinical Status Yes No Known Drug Allergies [id number] Drug Allergy Unknown N/A 09/10/2014 Medications There is no data. Problems Date Dx Coded Attending Type Code Diagnosis Diagnosed By VALERIA ALEXANDER Ot D46.9 MYELODYSPLASTIC SYNDROME, UNSPECIFIED VALERIA ALEXANDER Ot E78.5 HYPERLIPIDEMIA, UNSPECIFIED VALERIA ALEXANDER Ot I10 ESSENTIAL (PRIMARY) HYPERTENSION VALERIA ALEXANDER Ot Z51.11 ENCOUNTER FOR ANTINEOPLASTIC CHEMOTHERAP VALERIA ALEXANDER Ot Z79.82 RESIDENTIAL (CURRENT) USE OF ASPIRIN VALERIA ALEXANDER Ot Z79.899 OTHER ATTORNEY RECRUITER (CURRENT) DRUG THERAPY 09/10/2014 Ot 574.20 09/10/2014 SANG WEAVER FACC, BETTY FACP CCDS Ot 272.4 HYPERLIPIDEMIA NEC/NOS 09/10/2014 SANG WEAVER FACC, ALI FACP CCDS Ot 288.50 LEUKOCYTOPENIA, UNSPECIFIED 09/10/2014 SANG WEAVER FACC ALI FACP CCDS Ot 300.00 ANXIETY STATE NOS 09/10/2014 SANG WEAVER FACC, BETTY FACP CCDS Ot 401.9 HYPERTENSION NOS 09/10/2014 SANG WEAVER FACC, BETTY FACP CCDS Ot 574.20 CHOLELITHIASIS NOS 09/10/2014 SANG WEAVER FACC, BETTY FACP CCDS Ot 786.59 CHEST PAIN NEC 09/10/2014 SANG EWAVER FACC, BETTY FACP CCDS Ot V15.82 HISTORY OF TOBACCO USE 09/10/2014 BETTY DOMÍNGUEZ MD, FACC FACP CCDS Ot V58.69 OT MED,LT,CURRENT USE 10/02/2014 DONET WEAVER, TED Tomas Ot 530.3 ESOPHAGEAL STRICTURE 10/03/2014 Ot 574.20 10/03/2014 DONTE WEAVER, TED Tomas Ot V72.84 10/20/2014 DONTE WEAVER, TED Tomas Ot 574.10 CHOLELITH W CHOLECYS NEC 10/20/2014 DONTE WEAVER, TED Tomas Ot 574.20 10/23/2014 DNOTE WEAVER, TED Tomas Ot 574.20 10/23/2014 DONTE WEAVER, TED Tomas Ot V72.63 10/23/2014 DONTE WEAVER, TED Tomas Ot V74.8 10/24/2014 MELCHOR HOWARD DO Ot 327.23 OBSTRUCTIVE SLEEP APNEA (ADULT) (PEDIATR 11/06/2014 DONTE WEAVER, TED Tomas Ot 574.20 11/10/2014 DONTE WEAVER, TED Tomas Ot 574.20 11/10/2014 DONTE WEAVER, TED Tomas Ot V72.63 11/10/2014 DONTE WEAVER, TED Tomas Ot V74.8 01/04/2015 Ot 272.4 01/04/2015 Ot 327.23 01/04/2015 Ot 401.9 01/04/2015 Ot 530.3 01/04/2015 Ot 785.2 06/08/2015 CATHERINE, BOBAN N Ot 288.00 06/08/2015 CATHERINE BOBAN N Ot 288.50 06/08/2015 CATHERINE, BOBAN N Ot 401.9 06/08/2015 CATHERINE, BOBAN N Ot 715.89 06/08/2015 CATHERINEVALERIA N Ot V58.66 06/08/2015 CATHERINE BOBAN N Ot V58.69 07/11/2015 CATHERINE, BOBAN N Ot 288.00 NEUTROPENIA, UNSPECIFIED 07/11/2015 CATHERINE, BOBAN N Ot 288.50 LEUKOCYTOPENIA, UNSPECIFIED 07/11/2015 CATHERINE, BOBAN N Ot 401.9 HYPERTENSION NOS 07/11/2015 CATHERINE, BOBAN N Ot 715.89 OSTEOARTHROSIS-MULT SITE 07/11/2015 CATHERINE, BOBAN N Ot V58.66 LONG-TERM (CURRENT) USE OF ASPIRIN 07/11/2015 VALERIA ALEXANDER N Ot V58.69 OTH MED,LT,CURRENT USE 08/29/2015 CATHERINE, BOBAN N Ot D70.9 08/29/2015 CATHERINE, BOBAN N Ot I10 08/29/2015 CATHERINE, BOBAN N Ot Z79.82 08/29/2015 CATHERINE, BOBAN N Ot Z79.899 10/08/2015 Ot 574.20 10/08/2015 DONTE WEAVER, TED Tomas Ot V72.84 10/08/2015 DONTE WEAVER, TED Tomas Ot 574.20 10/08/2015 DONTE WEAVER, TED Tomas Ot 574.20 10/08/2015 DONTE WEAVER, TED M Ot V72.63 10/08/2015 DONTE WEAVER, TED Thom Ot V74.8 10/08/2015 Ot 272.4 10/08/2015 Ot 327.23 10/08/2015 Ot 401.9 10/08/2015 Ot 530.3 10/08/2015 Ot 785.2 10/08/2015 ZENON ALEXANDERAN N Ot D70.9 10/08/2015 CATHERINE BOBSTEW N Ot I10 10/08/2015 CATHERINEVALERIA CATES N Ot Z79.82 10/08/2015 CATHERINE, BOBAN N Ot Z79.899 10/08/2015 DONTE WEAVER, TED Tomas Ot Z01.818 10/08/2015 DONTE WEAVER, TED Tomas Ot K22.2 ESOPHAGEAL OBSTRUCTION 10/08/2015 DONTE WEAVER, TED Tomas Ot Z01.818 10/14/2015 CATHERINE BOBAN N Ot 288.00 NEUTROPENIA, UNSPECIFIED 10/14/2015 CATHERINE, BOBSTEW N Ot 401.9 HYPERTENSION NOS 10/14/2015 CATHERINE BOBAN N Ot D70.9 NEUTROPENIA, UNSPECIFIED 10/14/2015 CATHERINE BOBAN N Ot I10 ESSENTIAL (PRIMARY) HYPERTENSION 10/14/2015 CATHERINE, BOBAN N Ot V58.66 LONG-TERM (CURRENT) USE OF ASPIRIN 10/14/2015 ZENON ALEXANDERAN N Ot V58.69 OTH MED,LT,CURRENT USE 10/14/2015 CATHERINE BOBAN N Ot Z79.82 RESIDENTIAL (CURRENT) USE OF ASPIRIN 10/14/2015 CATHERINE, BOBAN N Ot Z79.899 OTHER RESIDENTIAL (CURRENT) DRUG THERAPY 01/01/2016 JUANA SHULTZ Ot D70.9 01/01/2016 JUANA SHULTZ BEVERAGE DISTILLER Ot I10 01/01/2016 SHULTZJUANA Marley BEVERAGE DISTILLER Ot Z79.82 01/01/2016 JUANA SHULTZ BEVERAGE DISTILLER Ot Z79.899 01/15/2016 JUANA SHULTZ BEVERAGE DISTILLER Ot D70.9 01/15/2016 JUANA SHULTZ BEVERAGE DISTILLER Ot I10 01/15/2016 JUANA SHULTZ S BEVERAGE DISTILLER Ot Z79.82 01/15/2016 JUANA SHULTZ BEVERAGE DISTILLER Ot Z79.899 02/07/2016 VALERIA ALEXANDER N Ot D70.9 NEUTROPENIA, UNSPECIFIED 02/07/2016 CATHERINE, BOBAN N Ot I10 ESSENTIAL (PRIMARY) HYPERTENSION 02/07/2016 CATHERINE BOBAN N Ot Z79.82 ATTORNEY RECRUITER (CURRENT) USE OF ASPIRIN 02/07/2016 CATHERINE BOBAN N Ot Z79.899 OTHER RESIDENTIAL (CURRENT) DRUG THERAPY 02/15/2016 CATHERINE BOBSTEW N Ot D70.9 NEUTROPENIA, UNSPECIFIED 02/15/2016 CATHERINE, BOBAN N Ot I10 ESSENTIAL (PRIMARY) HYPERTENSION 02/15/2016 CATHERINE, BOBAN N Ot Z79.82 ATTORNEY RECRUITER (CURRENT) USE OF ASPIRIN 02/15/2016 CATHERINE, BOBAN N Ot Z79.899 OTHER ATTORNEY RECRUITER (CURRENT) DRUG THERAPY 03/28/2016 CATHERINE, BOBAN N Ot D70.9 NEUTROPENIA, UNSPECIFIED 03/28/2016 CATHERINE, BOBAN N Ot I10 ESSENTIAL (PRIMARY) HYPERTENSION 03/28/2016 CATHERINE, BOBAN N Ot Z79.82 ATTORNEY RECRUITER (CURRENT) USE OF ASPIRIN 03/28/2016 CATHERINE, BOBAN N Ot Z79.899 OTHER ATTORNEY RECRUITER (CURRENT) DRUG THERAPY 04/07/2016 CATHERINE, BOBAN N Ot D70.9 NEUTROPENIA, UNSPECIFIED 04/07/2016 CATHERINE, BOBAN N Ot I10 ESSENTIAL (PRIMARY) HYPERTENSION 04/07/2016 CATHERINE, BOBAN N Ot Z79.82 ATTORNEY RECRUITER (CURRENT) USE OF ASPIRIN 04/07/2016 CATHERINE, BOBAN N Ot Z79.899 OTHER ATTORNEY RECRUITER (CURRENT) DRUG THERAPY 04/08/2016 JUANA SHULTZ BEVERAGE DISTILLER Ot D70.9 NEUTROPENIA, UNSPECIFIED 04/08/2016 JUANA SHULTZ BEVERAGE DISTILLER Ot I10 ESSENTIAL (PRIMARY) HYPERTENSION 04/08/2016 SHULTZJUANA Marley BEVERAGE DISTILLER Ot Z79.82 RESIDENTIAL (CURRENT) USE OF ASPIRIN 04/08/2016 JUANA SHULTZ S BEVERAGE DISTILLER Ot Z79.899 OTHER RESIDENTIAL (CURRENT) DRUG THERAPY 04/10/2016 JUANA SHULTZ BEVERAGE DISTILLER Ot D70.9 NEUTROPENIA, UNSPECIFIED 04/10/2016 SHULTZJUANA S BEVERAGE DISTILLER Ot I10 ESSENTIAL (PRIMARY) HYPERTENSION 04/10/2016 JUANA SHULTZ BEVERAGE DISTILLER Ot Z79.82 RESIDENTIAL (CURRENT) USE OF ASPIRIN 04/10/2016 SHULTZJUANA BEVERAGE DISTILLER Ot Z79.899 OTHER RESIDENTIAL (CURRENT) DRUG THERAPY 05/02/2016 JUANA SHULTZ BEVERAGE DISTILLER Ot D70.9 NEUTROPENIA, UNSPECIFIED 05/02/2016 SHULTZJUANA S BEVERAGE DISTILLER Ot I10 ESSENTIAL (PRIMARY) HYPERTENSION 05/02/2016 SHULTZ JUANA S BEVERAGE DISTILLER Ot Z79.82 ATTORNEY RECRUITER (CURRENT) USE OF ASPIRIN 05/02/2016 SHULTZJUANA S BEVERAGE DISTILLER Ot Z79.899 OTHER RESIDENTIAL (CURRENT) DRUG THERAPY 05/14/2016 CATHERINE, BOBAN N Ot D70.9 NEUTROPENIA, UNSPECIFIED 05/14/2016 CATHERINE, BOBAN N Ot I10 ESSENTIAL (PRIMARY) HYPERTENSION 05/14/2016 CATHERINE, BOBAN N Ot Z79.82 RESIDENTIAL (CURRENT) USE OF ASPIRIN 05/14/2016 CATHERINE, BOBAN N Ot Z79.899 OTHER RESIDENTIAL (CURRENT) DRUG THERAPY 05/30/2016 CATHERINE, BOBAN N Ot D70.9 NEUTROPENIA, UNSPECIFIED 05/30/2016 CATHERINE, BOBAN N Ot I10 ESSENTIAL (PRIMARY) HYPERTENSION 05/30/2016 CATHERINE, BOBAN N Ot Z79.82 ATTORNEY RECRUITER (CURRENT) USE OF ASPIRIN 05/30/2016 CATHERINE, BOBAN N Ot Z79.899 OTHER ATTORNEY RECRUITER (CURRENT) DRUG THERAPY 06/02/2016 CATHERINE, BOBAN N Ot D70.9 NEUTROPENIA, UNSPECIFIED 06/02/2016 CATHERINE, BOBAN N Ot I10 ESSENTIAL (PRIMARY) HYPERTENSION 06/02/2016 CATHERINE, BOBAN N Ot Z79.82 ATTORNEY RECRUITER (CURRENT) USE OF ASPIRIN 06/02/2016 CATHERINE, VALERIA Mendes Ot Z79.899 OTHER RESIDENTIAL (CURRENT) DRUG THERAPY 06/03/2016 CATHERINE VALERIA Mendes Ot D70.9 NEUTROPENIA, UNSPECIFIED 06/03/2016 CATHERINE VALERIA N Ot I10 ESSENTIAL (PRIMARY) HYPERTENSION 06/03/2016 VALERIA ALEXANDER Ot Z79.82 ATTORNEY RECRUITER (CURRENT) USE OF ASPIRIN 06/03/2016 VALERIA ALEXANDER Ot Z79.899 OTHER ATTORNEY RECRUITER (CURRENT) DRUG THERAPY 06/03/2016 JUANA SHULTZ BEVERAGE DISTILLER Ot D46.9 MYELODYSPLASTIC SYNDROME, UNSPECIFIED 06/03/2016 JUANA SHULTZ BEVERAGE DISTILLER Ot E78.5 HYPERLIPIDEMIA, UNSPECIFIED 06/03/2016 JUANA SHULTZ BEVERAGE DISTILLER Ot I10 ESSENTIAL (PRIMARY) HYPERTENSION 06/03/2016 JUANA SHULTZ BEVERAGE DISTILLER Ot Z79.82 RESIDENTIAL (CURRENT) USE OF ASPIRIN 06/03/2016 JUANA SHULTZ BEVERAGE DISTILLER Ot Z79.899 OTHER RESIDENTIAL (CURRENT) DRUG THERAPY 2016 JUANA SHULTZ BEVERAGE DISTILLER Ot D46.9 MYELODYSPLASTIC SYNDROME, UNSPECIFIED 2016 JUANA SHULTZ BEVERAGE DISTILLER Ot E78.5 HYPERLIPIDEMIA, UNSPECIFIED 2016 JUANA SHULTZ BEVERAGE DISTILLER Ot I10 ESSENTIAL (PRIMARY) HYPERTENSION 2016 JUANA SHULTZ BEVERAGE DISTILLER Ot Z79.82 ATTORNEY RECRUITER (CURRENT) USE OF ASPIRIN 2016 JUANA SHULTZ S BEVERAGE DISTILLER Ot Z79.899 OTHER ATTORNEY RECRUITER (CURRENT) DRUG THERAPY 07/01/2016 CATHERINEVALERIA Ot D46.9 MYELODYSPLASTIC SYNDROME, UNSPECIFIED 07/01/2016 VALERIA ALEXANDER Ot E78.5 HYPERLIPIDEMIA, UNSPECIFIED 07/01/2016 VALERIA ALEXANDER N Ot I10 ESSENTIAL (PRIMARY) HYPERTENSION 07/01/2016 VALERIA ALEXANDER Ot Z51.11 ENCOUNTER FOR ANTINEOPLASTIC CHEMOTHERAP 07/01/2016 VALERIA ALEXANDER Ot Z79.82 ATTORNEY RECRUITER (CURRENT) USE OF ASPIRIN 07/01/2016 VALERIA ALEXANDER N Ot Z79.899 OTHER ATTORNEY RECRUITER (CURRENT) DRUG THERAPY 07/07/2016 VALERIA ALEXANDER Ot D46.9 MYELODYSPLASTIC SYNDROME, UNSPECIFIED 07/07/2016 VALERIA ALEXANDER Ot E78.5 HYPERLIPIDEMIA, UNSPECIFIED 07/07/2016 CATHERINEVALERIA CATES N Ot I10 ESSENTIAL (PRIMARY) HYPERTENSION 07/07/2016 VALERIA ALEXANDER Ot Z51.11 ENCOUNTER FOR ANTINEOPLASTIC CHEMOTHERAP 07/07/2016 VALERIA ALEXANDER Ot Z79.82 RESIDENTIAL (CURRENT) USE OF ASPIRIN 07/07/2016 VALERIA ALEXANDER N Ot Z79.899 OTHER RESIDENTIAL (CURRENT) DRUG THERAPY 07/21/2016 VALERIA ALEXANDER Ot D46.9 MYELODYSPLASTIC SYNDROME, UNSPECIFIED 07/21/2016 VALERIA ALEXANDER Ot E78.5 HYPERLIPIDEMIA, UNSPECIFIED 07/21/2016 VALERIA ALEXANDER Ot I10 ESSENTIAL (PRIMARY) HYPERTENSION 07/21/2016 VALERIA ALEXANDER Ot Z51.11 ENCOUNTER FOR ANTINEOPLASTIC CHEMOTHERAP 07/21/2016 VALERIA ALEXANDER Ot Z79.82 ATTORNEY RECRUITER (CURRENT) USE OF ASPIRIN 07/21/2016 VALERIA ALEXANDER N Ot Z79.899 OTHER ATTORNEY RECRUITER (CURRENT) DRUG THERAPY 07/28/2016 Ot 574.20 CHOLELITHIASIS NOS 07/28/2016 DONTE WEAVER, TED Tomas Ot V72.84 EXAM PRE-OPERATIVE NOS 07/28/2016 DONTE WEAVER, TED Tomas Ot 574.20 CHOLELITHIASIS NOS 07/28/2016 DONTE WEAVER, TED Tomas Ot 574.20 CHOLELITHIASIS NOS 07/28/2016 DONTE WEAVER, TED Tomas Ot V72.63 PRE-PROCEDURAL LABORATORY EXAMINATION 07/28/2016 DONTE WEAVER, TED Tomas Ot V74.8 SCREEN-BACTERIAL DIS NEC 07/28/2016 Ot 272.4 HYPERLIPIDEMIA NEC/NOS 07/28/2016 Ot 327.23 OBSTRUCTIVE SLEEP APNEA (ADULT) (PEDIATR 07/28/2016 Ot 401.9 HYPERTENSION NOS 07/28/2016 Ot 530.3 ESOPHAGEAL STRICTURE 07/28/2016 Ot 785.2 CARDIAC MURMURS NEC 07/28/2016 DONTE WEAVER, TED Tomas Ot Z01.818 ENCOUNTER FOR OTHER PREPROCEDURAL EXAMIN 07/28/2016 JUANA SHULTZ BEVERAGE DISTILLER Ot D70.9 NEUTROPENIA, UNSPECIFIED 07/28/2016 JUANA SHULTZ BEVERAGE DISTILLER Ot I10 ESSENTIAL (PRIMARY) HYPERTENSION 07/28/2016 SHULTZJUANA Marley BEVERAGE DISTILLER Ot Z79.82 ATTORNEY RECRUITER (CURRENT) USE OF ASPIRIN 07/28/2016 JUANA SHULTZ BEVERAGE DISTILLER Ot Z79.899 OTHER RESIDENTIAL (CURRENT) DRUG THERAPY 07/28/2016 SHULTZJUANA Marley BEVERAGE DISTILLER Ot D70.9 NEUTROPENIA, UNSPECIFIED 07/28/2016 SHULTZJUANA Marley BEVERAGE DISTILLER Ot I10 ESSENTIAL (PRIMARY) HYPERTENSION 07/28/2016 SHULTZJUANA Marley BEVERAGE DISTILLER Ot Z79.82 RESIDENTIAL (CURRENT) USE OF ASPIRIN 07/28/2016 SHULTZJUANA Marley BEVERAGE DISTILLER Ot Z79.899 OTHER ATTORNEY RECRUITER (CURRENT) DRUG THERAPY 07/28/2016 JUANA SHULTZ BEVERAGE DISTILLER Ot D46.9 MYELODYSPLASTIC SYNDROME, UNSPECIFIED 07/28/2016 SHULTZJUANA Marley BEVERAGE DISTILLER Ot E78.5 HYPERLIPIDEMIA, UNSPECIFIED 07/28/2016 SHULTZ JUANA Marley BEVERAGE DISTILLER Ot I10 ESSENTIAL (PRIMARY) HYPERTENSION 07/28/2016 SHULTZJUANA Marley BEVERAGE DISTILLER Ot Z79.82 RESIDENTIAL (CURRENT) USE OF ASPIRIN 07/28/2016 SHULTZJUANA Marley BEVERAGE DISTILLER Ot Z79.899 OTHER ATTORNEY RECRUITER (CURRENT) DRUG THERAPY 07/28/2016 VALERIA ALEXANDER Ot D46.9 MYELODYSPLASTIC SYNDROME, UNSPECIFIED 07/28/2016 VALERIA ALEXANDER Ot E78.5 HYPERLIPIDEMIA, UNSPECIFIED 07/28/2016 VALERIA ALEXANDER Ot I10 ESSENTIAL (PRIMARY) HYPERTENSION 07/28/2016 VALERIA ALEXANDER Ot Z51.11 ENCOUNTER FOR ANTINEOPLASTIC CHEMOTHERAP 07/28/2016 VALERIA ALEXANDER Ot Z79.82 ATTORNEY RECRUITER (CURRENT) USE OF ASPIRIN 07/28/2016 VALERIA ALEXANDER Ot Z79.899 OTHER ATTORNEY RECRUITER (CURRENT) DRUG THERAPY 07/28/2016 SARIAH AGUIRRE DPM Ot M21.621 BUNIONETTE OF RIGHT FOOT 07/28/2016 SARIAH AGUIRRE DPM Ot Z01.818 ENCOUNTER FOR OTHER PREPROCEDURAL EXAMIN 07/28/2016 SARIAH AGUIRRE DPM Ot Z11.2 ENCOUNTER FOR SCREENING FOR OTHER BACTER 07/29/2016 AGUIRRE DPM, SARIAH P Ot M21.621 BUNIONETTE OF RIGHT FOOT 07/29/2016 AGUIRRE DPM, SARIAH P Ot Z01.818 ENCOUNTER FOR OTHER PREPROCEDURAL EXAMIN 07/29/2016 AGUIRRE DPM, SARIAH P Ot Z11.2 ENCOUNTER FOR SCREENING FOR OTHER BACTER 08/01/2016 AGUIRRE DPM, SARIAH P Ot L90.5 SCAR CONDITIONS AND FIBROSIS OF SKIN 08/01/2016 AGUIRRE DPM, SARIAH P Ot M21.621 BUNIONETTE OF RIGHT FOOT 08/04/2016 VALERIA ALEXANDER Ot D46.9 MYELODYSPLASTIC SYNDROME, UNSPECIFIED 08/04/2016 VALERIA ALEXANDER Ot E78.5 HYPERLIPIDEMIA, UNSPECIFIED 08/04/2016 VALERIA ALEXANDER Ot I10 ESSENTIAL (PRIMARY) HYPERTENSION 08/04/2016 VALERIA ALEXANDER Ot Z51.11 ENCOUNTER FOR ANTINEOPLASTIC CHEMOTHERAP 08/04/2016 VALERIA ALEXANDER Ot Z79.82 ATTORNEY RECRUITER (CURRENT) USE OF ASPIRIN 08/04/2016 VALERIA ALEXANDER Ot Z79.899 OTHER RESIDENTIAL (CURRENT) DRUG THERAPY 08/05/2016 AGUIRRE DPM, SARIAH P Ot L90.5 SCAR CONDITIONS AND FIBROSIS OF SKIN 08/05/2016 AGUIRRE DPM, SARIAH P Ot M21.621 BUNIONETTE OF RIGHT FOOT 08/06/2016 AGUIRRE DPM, SARIAH P Ot L90.5 SCAR CONDITIONS AND FIBROSIS OF SKIN 08/06/2016 AGUIRRE DPM, SARIAH P Ot M21.621 BUNIONETTE OF RIGHT FOOT 08/07/2016 AGUIRRE DPM, SARIAH P Ot L90.5 SCAR CONDITIONS AND FIBROSIS OF SKIN 08/07/2016 AGUIRRE DPM, SARIAH P Ot M21.621 BUNIONETTE OF RIGHT FOOT 08/08/2016 AGUIRRE DPM, SARIAH P Ot L90.5 SCAR CONDITIONS AND FIBROSIS OF SKIN 08/08/2016 AGUIRRE DPM, SARIAH P Ot M21.621 BUNIONETTE OF RIGHT FOOT 08/18/2016 VALERIA ALEXANDER Ot D46.9 MYELODYSPLASTIC SYNDROME, UNSPECIFIED 08/18/2016 VALERIA ALEXANDER Ot E78.5 HYPERLIPIDEMIA, UNSPECIFIED 08/18/2016 VALERIA ALEXANDER N Ot I10 ESSENTIAL (PRIMARY) HYPERTENSION 08/18/2016 CATHERINEVALERIA CATES N Ot Z51.11 ENCOUNTER FOR ANTINEOPLASTIC CHEMOTHERAP 08/18/2016 VALERIA ALEXANDER N Ot Z79.82 RESIDENTIAL (CURRENT) USE OF ASPIRIN 08/18/2016 VALERIA ALEXANDER N Ot Z79.899 OTHER ATTORNEY RECRUITER (CURRENT) DRUG THERAPY 08/29/2016 VALERIA ALEXANDER Vaughn Ot D46.9 MYELODYSPLASTIC SYNDROME, UNSPECIFIED 08/29/2016 VALERIA ALEXANDER N Ot E78.5 HYPERLIPIDEMIA, UNSPECIFIED 08/29/2016 CATHERINE ZENONSTEW N Ot I10 ESSENTIAL (PRIMARY) HYPERTENSION 08/29/2016 CATHERINE, ZENONSTEW N Ot Z51.11 ENCOUNTER FOR ANTINEOPLASTIC CHEMOTHERAP 08/29/2016 CATHERINE, ZENONSTEW Vaughn Ot Z79.82 ATTORNEY RECRUITER (CURRENT) USE OF ASPIRIN 08/29/2016 CATHERINE, VALERIA N Ot Z79.899 OTHER ATTORNEY RECRUITER (CURRENT) DRUG THERAPY 09/03/2016 DONTE WEAVER, TED Tomas Ot Z01.818 ENCOUNTER FOR OTHER PREPROCEDURAL EXAMIN 09/03/2016 DONTE WEAVER, TED Tomas Ot Z86.010 PERSONAL HISTORY OF COLONIC POLYPS 09/08/2016 DONTE WEAVER, TED Tomas Ot K57.90 DVRTCLOS OF INTEST, PART UNSP, W/O PERF 09/08/2016 DONTE WEAVER, TED Tomas Ot K64.4 RESIDUAL HEMORRHOIDAL SKIN TAGS 09/08/2016 DONTE WEAVER, TED Tomas Ot Z09 ENCNTR FOR F/U EXAM AFT TRTMT FOR COND O 09/08/2016 DONTE WEAVER, TED Tomas Ot Z86.010 PERSONAL HISTORY OF COLONIC POLYPS 09/08/2016 CATHERINE, ZENONSTWE Vaughn Ot D46.9 MYELODYSPLASTIC SYNDROME, UNSPECIFIED 09/08/2016 CATHERINE, ZENONSTEW Vaughn Ot E78.5 HYPERLIPIDEMIA, UNSPECIFIED 09/08/2016 CATHERINE ZENONSTEW N Ot I10 ESSENTIAL (PRIMARY) HYPERTENSION 09/08/2016 CATHERINEVALERIA N Ot Z51.11 ENCOUNTER FOR ANTINEOPLASTIC CHEMOTHERAP 09/08/2016 CATHERINE, ZENONSTEW N Ot Z79.82 RESIDENTIAL (CURRENT) USE OF ASPIRIN 09/08/2016 CATHERINEVALERIA N Ot Z79.899 OTHER RESIDENTIAL (CURRENT) DRUG THERAPY 09/09/2016 DONTE WEAVER, TED Tomas Ot K57.90 DVRTCLOS OF INTEST, PART UNSP, W/O PERF 09/09/2016 DONTE WEAVER, TED Tomas Ot K64.4 RESIDUAL HEMORRHOIDAL SKIN TAGS 09/09/2016 DONTE WEAVER, TED Tomas Ot Z09 ENCNTR FOR F/U EXAM AFT TRTMT FOR COND O 09/09/2016 DONTE WEAVER, TED Tomas Ot Z86.010 PERSONAL HISTORY OF COLONIC POLYPS 10/16/2016 CATHERINEVALERIA Ot D46.9 MYELODYSPLASTIC SYNDROME, UNSPECIFIED 10/16/2016 CATHERINEVALERIA Ot E78.5 HYPERLIPIDEMIA, UNSPECIFIED 10/16/2016 VALERIA ALEXANDER Ot I10 ESSENTIAL (PRIMARY) HYPERTENSION 10/16/2016 VALERIA ALEXANDER Ot Z51.11 ENCOUNTER FOR ANTINEOPLASTIC CHEMOTHERAP 10/16/2016 VALERIA ALEXANDER Ot Z79.82 RESIDENTIAL (CURRENT) USE OF ASPIRIN 10/16/2016 VALERIA ALEXANDER Ot Z79.899 OTHER ATTORNEY RECRUITER (CURRENT) DRUG THERAPY 10/16/2016 Ot 574.20 CHOLELITHIASIS NOS 10/16/2016 DONTE WEAVER, TED Tomas Ot V72.84 EXAM PRE-OPERATIVE NOS 10/16/2016 DONTE WEAVER, TED Tomas Ot 574.20 CHOLELITHIASIS NOS 10/16/2016 TED KENT MD Ot 574.20 CHOLELITHIASIS NOS 10/16/2016 DONTE WEAVER, TED Tomas Ot V72.63 PRE-PROCEDURAL LABORATORY EXAMINATION 10/16/2016 DONTE WEAVER, TED Tomas Ot V74.8 SCREEN-BACTERIAL DIS NEC 10/16/2016 Ot 272.4 HYPERLIPIDEMIA NEC/NOS 10/16/2016 Ot 327.23 OBSTRUCTIVE SLEEP APNEA (ADULT) (PEDIATR 10/16/2016 Ot 401.9 HYPERTENSION NOS 10/16/2016 Ot 530.3 ESOPHAGEAL STRICTURE 10/16/2016 Ot 785.2 CARDIAC MURMURS NEC 10/16/2016 TED KENT MD Ot Z01.818 ENCOUNTER FOR OTHER PREPROCEDURAL EXAMIN 10/16/2016 JUANA SHULTZ BEVERAGE DISTILLER Ot D70.9 NEUTROPENIA, UNSPECIFIED 10/16/2016 JUANA SHULTZ BEVERAGE DISTILLER Ot I10 ESSENTIAL (PRIMARY) HYPERTENSION 10/16/2016 JUANA SHULTZ BEVERAGE DISTILLER Ot Z79.82 RESIDENTIAL (CURRENT) USE OF ASPIRIN 10/16/2016 JUANA SHULTZ BEVERAGE DISTILLER Ot Z79.899 OTHER ATTORNEY RECRUITER (CURRENT) DRUG THERAPY 10/16/2016 JUANA SHULTZP Ot D70.9 NEUTROPENIA, UNSPECIFIED 10/16/2016 JUANA SHULTZ BEVERAGE DISTILLER Ot I10 ESSENTIAL (PRIMARY) HYPERTENSION 10/16/2016 JUANA SHULTZ BEVERAGE DISTILLER Ot Z79.82 RESIDENTIAL (CURRENT) USE OF ASPIRIN 10/16/2016 JUANA SHULTZ BEVERAGE DISTILLER Ot Z79.899 OTHER RESIDENTIAL (CURRENT) DRUG THERAPY 10/16/2016 JUANA SHULTZP Ot D46.9 MYELODYSPLASTIC SYNDROME, UNSPECIFIED 10/16/2016 JUANA SHULTZP Ot E78.5 HYPERLIPIDEMIA, UNSPECIFIED 10/16/2016 JUANA SHULTZ BEVERAGE DISTILLER Ot I10 ESSENTIAL (PRIMARY) HYPERTENSION 10/16/2016 JUANA SHULTZ BEVERAGE DISTILLER Ot Z79.82 ATTORNEY RECRUITER (CURRENT) USE OF ASPIRIN 10/16/2016 JUANA SHULTZ BEVERAGE DISTILLER Ot Z79.899 OTHER ATTORNEY RECRUITER (CURRENT) DRUG THERAPY 10/16/2016 VALERIA ALEXANDER Ot D46.9 MYELODYSPLASTIC SYNDROME, UNSPECIFIED 10/16/2016 VALERIA ALEXANDER Ot E78.5 HYPERLIPIDEMIA, UNSPECIFIED 10/16/2016 VALERIA ALEXANDER N Ot I10 ESSENTIAL (PRIMARY) HYPERTENSION 10/16/2016 VALERIA ALEXANDER Ot Z51.11 ENCOUNTER FOR ANTINEOPLASTIC CHEMOTHERAP 10/16/2016 VALERIA ALEXANDER N Ot Z79.82 RESIDENTIAL (CURRENT) USE OF ASPIRIN 10/16/2016 VALERIA LAEXANDER N Ot Z79.899 OTHER ATTORNEY RECRUITER (CURRENT) DRUG THERAPY 10/20/2016 VALERIA ALEXANDER Ot D46.9 MYELODYSPLASTIC SYNDROME, UNSPECIFIED 10/20/2016 VALERIA ALEXANDER N Ot E78.5 HYPERLIPIDEMIA, UNSPECIFIED 10/20/2016 VALERIA ALEXANDER N Ot I10 ESSENTIAL (PRIMARY) HYPERTENSION 10/20/2016 VALERIA ALEXANDER N Ot Z79.82 RESIDENTIAL (CURRENT) USE OF ASPIRIN 10/20/2016 VALERIA ALEXANDER N Ot Z79.899 OTHER ATTORNEY RECRUITER (CURRENT) DRUG THERAPY 11/05/2016 MENJIVAR DO, ADRIAN Ot R06.09 OTHER FORMS OF DYSPNEA 11/05/2016 MENJIVAR DO, ADRIAN Ot R06.09 OTHER FORMS OF DYSPNEA 11/07/2016 MENJIVAR DO, ADRIAN Ot R06.09 OTHER FORMS OF DYSPNEA 11/14/2016 MENJIVAR DO, ADRIAN Ot R06.09 OTHER FORMS OF DYSPNEA 11/20/2016 MENJIVAR DO, ADRIAN Ot R06.09 OTHER FORMS OF DYSPNEA 12/02/2016 MENJIVAR DO, ADRIAN Ot R06.09 OTHER FORMS OF DYSPNEA 12/04/2016 MENJIVAR DO ADRIAN Ot R06.09 OTHER FORMS OF DYSPNEA 12/08/2016 VALERIA ALEXANDER Ot D46.9 MYELODYSPLASTIC SYNDROME, UNSPECIFIED 12/08/2016 VALERIA ALEXANDER Ot E78.5 HYPERLIPIDEMIA, UNSPECIFIED 12/08/2016 VALERIA ALEXANDER N Ot I10 ESSENTIAL (PRIMARY) HYPERTENSION 12/08/2016 VALERIA ALEXANDER N Ot Z79.82 ATTORNEY RECRUITER (CURRENT) USE OF ASPIRIN 12/08/2016 VALERIA ALEXANDER N Ot Z79.899 OTHER ATTORNEY RECRUITER (CURRENT) DRUG THERAPY 12/08/2016 MENJIVAR DO ADRIAN Ot R06.09 OTHER FORMS OF DYSPNEA 12/11/2016 VALERIA ALEXANDER N Ot D46.9 MYELODYSPLASTIC SYNDROME, UNSPECIFIED 12/11/2016 VALERIA ALEXANDER Ot E78.5 HYPERLIPIDEMIA, UNSPECIFIED 12/11/2016 VALERIA ALEXANDER N Ot I10 ESSENTIAL (PRIMARY) HYPERTENSION 12/11/2016 VALERIA ALEXANDER N Ot Z79.82 ATTORNEY RECRUITER (CURRENT) USE OF ASPIRIN 12/11/2016 VALERIA ALEXANDER N Ot Z79.899 OTHER RESIDENTIAL (CURRENT) DRUG THERAPY 12/11/2016 TIARA DO ADRIAN Ot R06.09 OTHER FORMS OF DYSPNEA 12/11/2016 ROSHAN CHRIS APRN Ot D46.Z OTHER MYELODYSPLASTIC SYNDROMES 12/11/2016 ROSHAN CHRIS SLABBING MACHINE OPERATOR Ot F17.201 NICOTINE DEPENDENCE, UNSPECIFIED, IN REM 12/11/2016 ROSHAN CHRIS APRN Ot G47.33 OBSTRUCTIVE SLEEP APNEA (ADULT) (PEDIATR 12/11/2016 ARIES, ROSHAN E SLABBING MACHINE OPERATOR Ot R06.00 DYSPNEA, UNSPECIFIED 12/15/2016 CATHERINE, BOBAN N Ot D46.9 MYELODYSPLASTIC SYNDROME, UNSPECIFIED 12/15/2016 CATHERINE, BOBAN N Ot E78.5 HYPERLIPIDEMIA, UNSPECIFIED 12/15/2016 CATHERINE, BOBAN N Ot I10 ESSENTIAL (PRIMARY) HYPERTENSION 12/15/2016 CATHERINE, BOBAN N Ot Z79.82 ATTORNEY RECRUITER (CURRENT) USE OF ASPIRIN 12/15/2016 CATHERINE, BOBAN N Ot Z79.899 OTHER RESIDENTIAL (CURRENT) DRUG THERAPY 01/06/2017 ARIES, ROSHAN E SLABBING MACHINE OPERATOR Ot D46.Z OTHER MYELODYSPLASTIC SYNDROMES 01/06/2017 ARIES, ROSHAN E SLABBING MACHINE OPERATOR Ot F17.201 NICOTINE DEPENDENCE, UNSPECIFIED, IN REM 01/06/2017 ARIES ROSHAN E SLABBING MACHINE OPERATOR Ot G47.33 OBSTRUCTIVE SLEEP APNEA (ADULT) (PEDIATR 01/06/2017 ARIES ROSHAN E SLABBING MACHINE OPERATOR Ot R06.00 DYSPNEA, UNSPECIFIED 01/08/2017 ARIES, ROSHAN E SLABBING MACHINE OPERATOR Ot D46.Z OTHER MYELODYSPLASTIC SYNDROMES 01/08/2017 ARIES, ROSHAN E SLABBING MACHINE OPERATOR Ot F17.201 NICOTINE DEPENDENCE, UNSPECIFIED, IN REM 01/08/2017 ARIES ROSHAN E SLABBING MACHINE OPERATOR Ot G47.33 OBSTRUCTIVE SLEEP APNEA (ADULT) (PEDIATR 01/08/2017 ARIES ROSHAN E SLABBING MACHINE OPERATOR Ot R06.00 DYSPNEA, UNSPECIFIED 01/14/2017 CATHERINE, BOBAN N Ot D46.9 MYELODYSPLASTIC SYNDROME, UNSPECIFIED 01/14/2017 CATHERINE, BOBAN N Ot E78.5 HYPERLIPIDEMIA, UNSPECIFIED 01/14/2017 CATHERINE, BOBAN N Ot I10 ESSENTIAL (PRIMARY) HYPERTENSION 01/14/2017 CATHERINE, BOBAN N Ot Z79.82 RESIDENTIAL (CURRENT) USE OF ASPIRIN 01/14/2017 CATHERINE, BOBAN N Ot Z79.899 OTHER RESIDENTIAL (CURRENT) DRUG THERAPY 01/16/2017 CATHERINE, BOBAN N Ot D46.9 MYELODYSPLASTIC SYNDROME, UNSPECIFIED 01/16/2017 CATHERINE, BOBAN N Ot E78.5 HYPERLIPIDEMIA, UNSPECIFIED 01/16/2017 CATHERINE, BOBAN N Ot I10 ESSENTIAL (PRIMARY) HYPERTENSION 01/16/2017 CATHERINEVALERIA CATES N Ot Z51.11 ENCOUNTER FOR ANTINEOPLASTIC CHEMOTHERAP 01/16/2017 VALERIA ALEXANDER N Ot Z79.82 ATTORNEY RECRUITER (CURRENT) USE OF ASPIRIN 01/16/2017 VALERIA ALEXANDER N Ot Z79.899 OTHER ATTORNEY RECRUITER (CURRENT) DRUG THERAPY 02/17/2017 VALERIA ALEXANDER N Ot D46.9 MYELODYSPLASTIC SYNDROME, UNSPECIFIED 02/17/2017 CATHERINEVALERIA N Ot E78.5 HYPERLIPIDEMIA, UNSPECIFIED 02/17/2017 CATHERINEVALERIA N Ot I10 ESSENTIAL (PRIMARY) HYPERTENSION 02/17/2017 CATHERINEVALERIA CATES N Ot Z51.11 ENCOUNTER FOR ANTINEOPLASTIC CHEMOTHERAP 02/17/2017 VALERIA ALEXANDER N Ot Z79.82 RESIDENTIAL (CURRENT) USE OF ASPIRIN 02/17/2017 VALERIA ALEXANDER N Ot Z79.899 OTHER ATTORNEY RECRUITER (CURRENT) DRUG THERAPY 03/04/2017 VALERIA ALEXANDER N Ot D46.9 MYELODYSPLASTIC SYNDROME, UNSPECIFIED 03/04/2017 CATHERINEVALERIA N Ot E78.5 HYPERLIPIDEMIA, UNSPECIFIED 03/04/2017 CATHERINE BOBSTEW N Ot I10 ESSENTIAL (PRIMARY) HYPERTENSION 03/04/2017 CATHERINEVALERIA CATES N Ot Z51.11 ENCOUNTER FOR ANTINEOPLASTIC CHEMOTHERAP 03/04/2017 VALERIA ALEXANDER N Ot Z79.82 ATTORNEY RECRUITER (CURRENT) USE OF ASPIRIN 03/04/2017 VALERIA ALEXANDER N Ot Z79.899 OTHER ATTORNEY RECRUITER (CURRENT) DRUG THERAPY 03/10/2017 VALERIA ALEXANDER N Ot D46.9 MYELODYSPLASTIC SYNDROME, UNSPECIFIED 03/10/2017 CATHERINEVALERIA N Ot E78.5 HYPERLIPIDEMIA, UNSPECIFIED 03/10/2017 CATHERINE BOBAN N Ot I10 ESSENTIAL (PRIMARY) HYPERTENSION 03/10/2017 CATHERINEVALERIA CATES N Ot Z51.11 ENCOUNTER FOR ANTINEOPLASTIC CHEMOTHERAP 03/10/2017 VALERIA ALEXANDER N Ot Z79.82 RESIDENTIAL (CURRENT) USE OF ASPIRIN 03/10/2017 CATHERINEVALERIA N Ot Z79.899 OTHER RESIDENTIAL (CURRENT) DRUG THERAPY 04/15/2017 CATHERINE ZENONSTEW N Ot D46.9 MYELODYSPLASTIC SYNDROME, UNSPECIFIED 04/15/2017 CATHERINEVALERIA N Ot E78.5 HYPERLIPIDEMIA, UNSPECIFIED 04/15/2017 CATHERINE, BOBAN N Ot I10 ESSENTIAL (PRIMARY) HYPERTENSION 04/15/2017 CATHERINE BOBAN N Ot Z51.11 ENCOUNTER FOR ANTINEOPLASTIC CHEMOTHERAP 04/15/2017 CATHERINEZENON CATESAN N Ot Z79.82 RESIDENTIAL (CURRENT) USE OF ASPIRIN 04/15/2017 CATHERINE, BOBAN N Ot Z79.899 OTHER RESIDENTIAL (CURRENT) DRUG THERAPY 04/21/2017 CATHERINE, BOBAN N Ot D46.9 MYELODYSPLASTIC SYNDROME, UNSPECIFIED 04/21/2017 CATHERINE, BOBAN N Ot E78.5 HYPERLIPIDEMIA, UNSPECIFIED 04/21/2017 CATHERINE, BOBAN N Ot I10 ESSENTIAL (PRIMARY) HYPERTENSION 04/21/2017 CATHERINE, BOBAN N Ot Z51.11 ENCOUNTER FOR ANTINEOPLASTIC CHEMOTHERAP 04/21/2017 CATHERINE BOBAN N Ot Z79.82 ATTORNEY RECRUITER (CURRENT) USE OF ASPIRIN 04/21/2017 CATHERINE, BOBAN N Ot Z79.899 OTHER RESIDENTIAL (CURRENT) DRUG THERAPY 05/20/2017 CATHERINE BOBAN N Ot D46.9 MYELODYSPLASTIC SYNDROME, UNSPECIFIED 05/20/2017 CATHERINE, BOBAN N Ot E78.5 HYPERLIPIDEMIA, UNSPECIFIED 05/20/2017 CATHERINE, BOBAN N Ot I10 ESSENTIAL (PRIMARY) HYPERTENSION 05/20/2017 CATHERINE BOBAN N Ot Z51.11 ENCOUNTER FOR ANTINEOPLASTIC CHEMOTHERAP 05/20/2017 CATHERINEZENONAN N Ot Z79.82 ATTORNEY RECRUITER (CURRENT) USE OF ASPIRIN 05/20/2017 CATHERINE, BOBAN N Ot Z79.899 OTHER ATTORNEY RECRUITER (CURRENT) DRUG THERAPY 06/05/2017 CATHERINE BOBAN N Ot D46.9 MYELODYSPLASTIC SYNDROME, UNSPECIFIED 06/05/2017 CATHERINE, BOBAN N Ot E78.5 HYPERLIPIDEMIA, UNSPECIFIED 06/05/2017 CATHERINE, BOBAN N Ot I10 ESSENTIAL (PRIMARY) HYPERTENSION 06/05/2017 CATHERINE BOBAN N Ot Z51.11 ENCOUNTER FOR ANTINEOPLASTIC CHEMOTHERAP 06/05/2017 CATHERINE BOBAN N Ot Z79.82 RESIDENTIAL (CURRENT) USE OF ASPIRIN 06/05/2017 CATHERINE, BOBAN N Ot Z79.899 OTHER ATTORNEY RECRUITER (CURRENT) DRUG THERAPY 06/08/2017 CATHERINE VALERIA N Ot D46.9 MYELODYSPLASTIC SYNDROME, UNSPECIFIED 06/08/2017 CATHERINEVALERIA N Ot E78.5 HYPERLIPIDEMIA, UNSPECIFIED 06/08/2017 CATHERINE BOBSTEW N Ot I10 ESSENTIAL (PRIMARY) HYPERTENSION 06/08/2017 CATHERINE ZENONSTEW N Ot Z51.11 ENCOUNTER FOR ANTINEOPLASTIC CHEMOTHERAP 06/08/2017 CATHERINE ZENONSTEW N Ot Z79.82 RESIDENTIAL (CURRENT) USE OF ASPIRIN 06/08/2017 CATHERINE ZENONSTEW N Ot Z79.899 OTHER RESIDENTIAL (CURRENT) DRUG THERAPY 06/16/2017 CATHERINEZENONSTEW Vaughn Ot D46.9 MYELODYSPLASTIC SYNDROME, UNSPECIFIED 06/16/2017 CATHERINEVALERIA N Ot E78.5 HYPERLIPIDEMIA, UNSPECIFIED 06/16/2017 CATHERINE BOBSTEW N Ot I10 ESSENTIAL (PRIMARY) HYPERTENSION 06/16/2017 CATHERINEEZNONSTEW N Ot Z51.11 ENCOUNTER FOR ANTINEOPLASTIC CHEMOTHERAP 06/16/2017 CATHERINEZENONSTEW N Ot Z79.82 RESIDENTIAL (CURRENT) USE OF ASPIRIN 06/16/2017 CATHERINEVALERIA N Ot Z79.899 OTHER RESIDENTIAL (CURRENT) DRUG THERAPY 07/11/2017 VALERIA ALEXANDER N Ot D46.9 MYELODYSPLASTIC SYNDROME, UNSPECIFIED 07/11/2017 CATHERINEVALERIA N Ot E78.5 HYPERLIPIDEMIA, UNSPECIFIED 07/11/2017 CATHERINE BOBSTEW N Ot I10 ESSENTIAL (PRIMARY) HYPERTENSION 07/11/2017 CATHERINEVALERIA N Ot Z51.11 ENCOUNTER FOR ANTINEOPLASTIC CHEMOTHERAP 07/11/2017 CATHERINEVALERIA N Ot Z79.82 ATTORNEY RECRUITER (CURRENT) USE OF ASPIRIN 07/11/2017 VALERIA ALEXANDER N Ot Z79.899 OTHER ATTORNEY RECRUITER (CURRENT) DRUG THERAPY 12/08/2017 DEANDRE DONALD DO, Ot D46.9 MYELODYSPLASTIC SYNDROME, UNSPECIFIED 12/08/2017 DEANDRE DONALD DO, Ot 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 12/11/2017 DEANDRE DONALD DO, Ot C92.00 ACUTE MYELOBLASTIC LEUKEMIA, NOT HAVING 12/11/2017 DEANDRE DONALD DO, Ot J16.8 PNEUMONIA DUE TO OTHER SPECIFIED INFECTI 12/11/2017 DEANDRE DONALD DO Ot 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 12/29/2017 DEANDRE DONALD DO Ot D46.9 MYELODYSPLASTIC SYNDROME, UNSPECIFIED 12/29/2017 DEANDRE DONALD DO Ot 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 01/01/2018 DEANDRE DONALD DO Ot C92.00 ACUTE MYELOBLASTIC LEUKEMIA, NOT HAVING 01/01/2018 DEANDRE DONALD DO Ot J16.8 PNEUMONIA DUE TO OTHER SPECIFIED INFECTI 01/01/2018 DEANDRE DONALD DO Ot 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 01/21/2018 DEANDRE DONALD DO Ot C92.00 ACUTE MYELOBLASTIC LEUKEMIA, NOT HAVING 01/21/2018 DEANDRE DONALD DO Ot J16.8 PNEUMONIA DUE TO OTHER SPECIFIED INFECTI 01/21/2018 DEANDRE DONALD DO Ot 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 Procedures There is no data. Results Test Result Range Methicillin resistant Staphylococcus aureus (MRSA) screening culture - 09:20 Methicillin resistant Staphylococcus aureus (MRSA) screening culture NEG NRG Encounters ACCT No. Visit Date/Time Discharge Status Pt. Type Provider Facility Loc./Unit Complaint [id number] 03/17/2018 10:56:00 03/17/2018 23:59:59 CLS Outpatient VALERIA ALEXANDER Via [facility] ONC [id number] 01/22/2018 00:09:00 01/22/2018 23:59:59 CLS Preadmit ODILON DO DEANDRE Elsie Via [facility] [id number] 11/01/2017 09:00:00 01/21/2018 00:01:00 DIS Outpatient SAADIzzy MILLER DEANDRE Elsie [facility] [id number] 12/07/2017 12:38:00 12/07/2017 23:59:59 CLS Outpatient ODILON DEANDRE MILLER [facility] RT SOB R06.02 [id number] 12/01/2017 16:47:00 12/01/2017 23:59:59 CLS Preadmit ROSHAN CHRIS APRN Via [facility] RT D46.22 RAEB-2 [id number] 04/24/2017 08:52:00 07/11/2017 00:01:00 DIS Outpatient VALERIA ALEXANDER [facility] ONC [id number] 03/20/2017 14:03:00 04/15/2017 00:01:00 DIS Outpatient VALERIA ALEXANDER [facility] ONC [id number] 01/14/2017 15:17:00 01/14/2017 00:01:00 DIS Outpatient VALERIA ALEXANDER [facility] ONC [id number] 12/10/2016 08:17:00 12/10/2016 23:59:59 CLS Outpatient ROSHAN CHRIS APRN [facility] RT DYSPNEA,SYLVAIN [id number] 11/13/2016 11:46:00 11/13/2016 23:59:59 CLS Outpatient TIARA MILLER ADRIAN [facility] CARD R06.09 [id number] 11/05/2016 09:26:00 11/05/2016 23:59:59 CLS Outpatient TIARA MILLER ADRIAN [facility] RAD R06.09 [id number] 10/01/2016 08:53:00 10/16/2016 10:09:00 DIS Outpatient VALERIA ALEXANDER [facility] ONC [id number] 09/08/2016 07:25:00 09/08/2016 10:20:00 DIS Outpatient TED KENT MD Via [facility] HISTORY OF POLYPS [id number] 09/03/2016 05:36:00 09/03/2016 14:08:00 DIS Outpatient TED KENT MD [facility] PREOP HISTORY OF POLYPS [id number] 08/01/2016 06:10:00 08/01/2016 10:45:00 DIS Outpatient SARIAH AGUIRRE DPM [facility] RIGHT MARGO CURTIS [id number] 07/28/2016 08:51:00 07/28/2016 10:01:00 DIS Outpatient SARIAH AGUIRRE DPM [facility] PREOP RIGHT HALLUX DEFORMITY [id number] 07/11/2016 13:57:00 07/21/2016 08:20:00 DIS Outpatient VALERIA ALEXANDER [facility] ONC [id number] 06/02/2016 14:01:00 06/02/2016 23:59:59 CLS Outpatient JUANA SHULTZ BEVERAGE DISTILLER [facility] ONC [id number] 05/09/2016 15:17:00 05/14/2016 00:01:00 DIS Outpatient VALERIA ALEXANDER [facility] ONC [id number] 04/07/2016 13:30:00 04/07/2016 23:59:59 CLS Outpatient JUANA SHULTZ BEVERAGE DISTILLER [facility] ONC [id number] 12/31/2015 08:53:00 12/31/2015 23:59:59 CLS Outpatient JUANA SHULTZ BEVERAGE DISTILLER [facility] ONC [id number] 07/16/2015 08:53:00 10/14/2015 00:01:00 DIS Outpatient VALERIA ALEXANDER [facility] ONC [id number] 10/08/2015 08:26:00 10/08/2015 11:40:00 DIS Outpatient TED KENT MD Via [facility] DYSPHASIA [id number] 10/03/2015 06:17:00 10/03/2015 23:59:59 CLS Outpatient TED KENT MD [facility] PREOP DYSPHASIA [id number] 04/16/2015 13:06:00 07/11/2015 00:01:00 DIS Outpatient VALERIA ALEXANDER [facility] ONC [id number] 10/23/2014 19:51:00 10/24/2014 05:45:00 DIS Outpatient MELCHOR HOWARD DO [facility] SLEEP SNORING,ARRHYTHMIAS, HTN [id number] 10/20/2014 06:16:00 10/20/2014 12:30:00 DIS Outpatient TED KENT MD [facility] SD GALLSTONES [id number] 10/19/2014 11:39:00 10/19/2014 23:59:59 CLS Outpatient TED KENT MD [facility] PREOP GALLSTONES [id number] 10/03/2014 09:27:00 10/03/2014 23:59:59 CLS Outpatient TED KENT MD [facility] RAD EPIGASTRIC PAINS [id number] 10/02/2014 07:28:00 10/02/2014 10:25:00 [facility] [id number] 09/28/2014 06:10:00 09/28/2014 23:59:59 CLS Outpatient TED KENT MD [facility] PREOP GERD; UPPER GASTRIC PAIN [id number] 09/10/2014 05:21:00 09/10/2014 18:05:00 DIS Outpatient SANG WEAVER FACC, BETTY CARRINGTON CCDS [facility] CATH CHEST PAIN [id number] 04/01/2018 19:19:00 ACT Emergency KELLIE WEAVER, SONALI Strickland [facility] ER ALLERGIC REACTION;FEVER,CHILLS,NAUSEA [id number] 12/15/2014 09:59:00 Document Registration [id number] 09/18/2011 08:00:00 Document Registration
[2018-04-01] MEDS ORDERED: LOSA50TA36 (19:34)
[2018-04-01] MEDS ORDERED: BUDE3CAP5 (19:34)
[2018-04-01] MEDS ORDERED: METO-333 (19:34)
[2018-04-01] MEDS ORDERED: DAPS100T3 (19:34)
[2018-04-01] MEDS ORDERED: PANT40TA3 (19:34)
[2018-04-01] MEDS ORDERED: ONDA8TAB13 (19:34)
[2018-04-01] MEDS ORDERED: ACYC800T (19:34)
--- NOTE | 2018-04-01 19:53 | ED Fever ---
History of Present Illness General Chief Complaint: Fever-Adult/Adol Stated Complaint: ALLERGIC REACTION;FEVER,CHILLS,NAUSEA Nursing Triage Note: Patient reports having a bone marrow transplant last may. patient states that today he went to get his immunizations of Tdap, Polio, PCV13, and Hib. patient reports this were given about 1000 this morning and he developed a fever this afternoon about 1600. patient reports taking 325mg of tylenol at 1700. Sepsis Screen: Possible Sepsis Risk Source: patient, family Exam Limitations: no limitations History of Present Illness Date Seen by Provider: Apr 01, 2018 Time Seen by Provider: 19:48 Initial Comments The patient is a 67-year-old white male who last May had a bone marrow transplant for myelodysplastic syndrome. He reports that he is suffered some graft versus host response. Today on a scheduled visit at [facility] he was given immunizations for TDAP pneumococcal vaccine PCV 13, polio vaccine, and Haemophilus influenza type B. This afternoon he began to run a fever which went as high as 105 by their home measurement. He was given Tylenol and presented here. He sees Dr. Sanford here for his hematology. Timing/Duration: this afternoon Fever Quality: greater than 102 F Fever Therapy STAFF ANALYST: Tylenol Associated Symptoms: diaphoresis, muscle aches Allergies and Home Medications Allergies Coded Allergies: No Known Drug Allergies (Unverified , 09/10/14) Home Medications Cetirizine HCl 10 Mg Capsule, 10 MG PO DAILY, (Reported) Multivitamins 1 Tab Tablet, 1 TAB PO 1700, (Reported) [place]-3 Fatty Acids/Fish Oil 1 Each Capsule, 1,000 MG PO TID, (Reported) Patient Home Medication List Home Medication List Reviewed: Yes Review of Systems Constitutional: see HPI EENTM: no symptoms reported Respiratory: no symptoms reported Cardiovascular: no symptoms reported Gastrointestinal: no symptoms reported Genitourinary: no symptoms reported Musculoskeletal: muscle pain Skin: other (flushing) Psychiatric/Neurological: No Symptoms Reported Hematologic/Lymphatic: No Symptoms Reported Immunological/Allergic: no symptoms reported Past Jhfweaj-Sywmjt-Sqieyk Hx Patient Social History Alcohol Use: Occasionally Uses Number of Drinks Today: AA Alcohol Beverage of Choice: Beer Recreational Drug Use: No Smoking Status: Former Smoker Former Smoker, Quit: Jul 28, 2003 Recent Foreign Travel: No Contact w/Someone Who Travel: No Recent Infectious Disease Expo: No Recent Hopitalizations: No Immunizations Up To Date Tetanus Booster (TDap): Less than 5yrs PED Vaccines UTD: No Date of Influenza Vaccine: Aug 05, 2017 Seasonal Allergies Seasonal Allergies: Yes Past Medical History Surgeries: Yes (RIGHT CTR, CATARACTS, foot sx) Gallbladder, Tonsillectomy Respiratory: Yes (CPAP) Sleep Apnea Currently Using CPAP: Yes Currently Using BIPAP: No Cardiac: Yes (HEART CATH-NORMAL AUG 2014) Hypertension Neurological: No Reproductive Disorders: No Sexually Transmitted Disease: No HIV/AIDS: No Genitourinary: No Prostate Problems Gastrointestinal: Yes Gastroesophageal Reflux Musculoskeletal: Yes Arthritis Endocrine: No Loss of Vision: Bilateral Hearing Impairment: Denies Cancer: Yes (MDS- PRECURSOR TO LEUKEMIA, GETS [place] Q 4WEEKS) Psychosocial: No Integumentary: No Blood Disorders: Yes (MYELODYSPLASTIC SYMDROME) Adverse Reaction/Blood Tranf: No Family Medical History Arthritis Cardiovascular disease Hypertension No Family History of: AIDS Abdominal aortic aneurysm Eustace's disease Alcoholism Alzheimer's disease Aphasia Asthma Cancer of mouth Cataracts Colon cancer Completed stroke Congenital disease Congenital heart disease Coronary thrombosis Cystic fibrosis Deafness or hearing loss Dementia Diabetes mellitus Drug abuse Dysphasia Fibrocystic disease of breast Gastroenteritis Glaucoma Headache disorder Hypercholesterolemia Infertility Kidney disease Myocardial infarction Neoplasm Not obtainable due to adoption Osteoporosis Parkinson's disease Prostate cancer Psychosocial problem Respiratory disorder Seizure disorder Severe allergy Physical Exam Vital Signs Vital Signs - First Documented 04/01/18 19:27 Temp 102.7 Pulse 130 Resp 18 B/P (MAP) 190/74 (112) Pulse Ox 89 Capillary Refill : Less Than 3 Seconds General Appearance: mild distress Eyes: Bilateral Eye Normal Inspection HEENT: normal ENT inspection Neck: full range of motion Respiratory: chest non-tender, lungs clear, normal breath sounds, no respiratory distress, no accessory muscle use, respiratory distress Cardiovascular: tachycardia Gastrointestinal: normal bowel sounds, non tender Extremities: normal range of motion Neurologic/Psychiatric: operational review sergeant II-XII nml as tested, no motor/sensory deficits, alert, normal mood/affect, oriented x 3 Skin: other (hot) Lymphatic: no adenopathy Progress/Results/Core Measures Suspected Sepsis Recent Fever Within 48 Hours: Yes Infection Criteria Present: Suspected New Infection New/Unexplained Altered Menta: No Sepsis Screen: Possible Sepsis Risk SIRS Temperature:102.7 Pulse: 130 Respiratory Rate: 18 Laboratory Tests 6/21/18 19:35: White Blood Count 6.7 Blood Pressure 190 /74 Mean: 112 Laboratory Tests 04/01/18 19:35: Platelet Count 227 Results/Orders Lab Results Laboratory Tests Test 04/01/18 19:35 Range/Units White Blood Count 6.7 4.3-11.0 10^3/uL Red Blood Count 2.87 L 4.35-5.85 10^6/uL Hemoglobin 11.6 L 13.3-17.7 G/DL Hematocrit 33 L 40-54 % Mean Corpuscular Volume 115 H 80-99 FL Mean Corpuscular Hemoglobin 40 H 25-34 PG Mean Corpuscular Hemoglobin Concent 35 32-36 G/DL Red Cell Distribution Width 11.8 10.0-14.5 % Platelet Count 227 130-400 10^3/uL Mean Platelet Volume 9.1 7.4-10.4 FL Neutrophils (%) (Auto) 92 H 42-75 % Lymphocytes (%) (Auto) 3 L 12-44 % Monocytes (%) (Auto) 4 0-12 % Eosinophils (%) (Auto) 1 0-10 % Basophils (%) (Auto) 0 0-10 % Neutrophils # (Auto) 6.1 1.8-7.8 X 10^3 Lymphocytes # (Auto) 0.2 L 1.0-4.0 X 10^3 Monocytes # (Auto) 0.3 0.0-1.0 X 10^3 Eosinophils # (Auto) 0.1 0.0-0.3 10^3/uL Basophils # (Auto) 0.0 0.0-0.1 10^3/uL Neutrophils % (Manual) 89 % Lymphocytes % (Manual) 7 % Monocytes % (Manual) 1 % Eosinophils % (Manual) 2 % Basophils % (Manual) 0 % Band Neutrophils 1 % Macrocytosis MARKED My Orders Orders - DARVIN TOMLIN MD Cbc With Automated Diff (04/01/18 20:31) Ua Culture If Indicated (04/01/18 20:31) Manual Differential (04/01/18 19:35) Vital Signs/I&O 04/01/18 04/01/18 19:27 21:18 Temp 102.7 101.4 Pulse 130 118 Resp 18 16 B/P (MAP) 190/74 (112) 142/73 (96) Pulse Ox 89 91 Capillary Refill : Less Than 3 Seconds Blood Pressure Mean: 112 Departure Communication (Admissions) 2119 Dr. Sanford returned the calls. He recommended that we encourage the patient to take fluids and aggressive manner. He was to use Tylenol every 4 hours as needed and awakened during the night to check his temperature. If the fever persisted into the morning he was to call the cancer center for further arrangements. Impression Primary Impression: fever related to immunizations Disposition: HOME, SELF-CARE Condition: Stable/Unchanged Departure-Patient Inst. Decision time for Depature: 21:29 Referrals: ADRIAN MENJIVAR DO (PCP/Family) Primary Care Physician Patient Instructions: Fever, Adult (DC) Add. Discharge Instructions: All discharge instructions reviewed with patient and/or family. Voiced understanding. Aggressive fluid intake. You may take Tylenol 500 mg every 3 hours to reduce fever. Target is less than 101. If continued problems with fever by morning contact the cancer center for further instructions. DARVIN TOMLIN MD Apr 01, 2018 19:53
[2018-04-01 20:36] LABS: BASOPHILS % (AUTO) 0 % (0-10); EOSINOPHILS # (AUTO) 0.1 10^3/uL (0.0-0.3); EOSINOPHILS % (AUTO) 1 % (0-10); HEMATOCRIT 33 % (40-54); HEMOGLOBIN 11.6 G/DL (13.3-17.7); LYMPHOCYTES # (AUTO) 0.2 X 10^3 (1.0-4.0); LYMPHOCYTES % (AUTO) 3 % (12-44); MEAN CORPUSCULAR HEMOGLOBIN 40 PG (25-34); MEAN CORPUSCULAR HGB CONC 35 G/DL (32-36); MEAN CORPUSCULAR VOLUME 115 FL (80-99); MEAN PLATELET VOLUME 9.1 FL (7.4-10.4); MONOCYTES # (AUTO) 0.3 X 10^3 (0.0-1.0); MONOCYTES % (AUTO) 4 % (0-12); NEUTROPHILS # (AUTO) 6.1 X 10^3 (1.8-7.8); NEUTROPHILS % (AUTO) 92 % (42-75); PLATELET COUNT 227 10^3/uL (130-400); RED BLOOD COUNT 2.87 10^6/uL (4.35-5.85); RED CELL DISTRIBUTION WIDTH 11.8 % (10.0-14.5); WHITE BLOOD COUNT 6.7 10^3/uL (4.3-11.0)
[2018-04-01 20:52] LABS: BAND NEUTROPHILS 1 %; BASOPHILS % (MANUAL) 0 %; EOSINOPHILS % (MANUAL) 2 %; LYMPHOCYTES % (MANUAL) 7 %; MONOCYTES % (MANUAL) 1 %; NEUTROPHILS % (MANUAL) 89 %
[2018-04-01 21:18] VITALS: BP 142/73
[2018-04-01 21:38] VITALS: BP 151/69
== END 2018-04-01 21:38 | disposition home or self-care (01) ==
LOC: EDUNIT# 19:18 → ER 19:19
DX: R50.9 Fever, unspecified (principal); T45.1X5A Adverse effect of antineoplastic and immunosuppressive drugs, initial encounter; D46.9 Myelodysplastic syndrome, unspecified; G47.30 Sleep apnea, unspecified; I10 Essential (primary) hypertension; K21.9 Gastro-esophageal reflux disease without esophagitis; Z82.49 Family history of ischemic heart disease and other diseases of the circulatory system; Z94.81 Bone marrow transplant status; Z87.891 Personal history of nicotine dependence; Z90.89 Acquired absence of other organs
CPT/HCPCS: 36415; 85007; 85027; 99282

== ENCOUNTER 2018-04-12 14:10 | Outpatient (RCR) | payer MEDICARE, OTHER ==
[2018-03-17 11:45] LABS: BASOPHILS % (AUTO) 0 % (0-10); EOSINOPHILS # (AUTO) 0.2 10^3/uL (0.0-0.3); EOSINOPHILS % (AUTO) 6 % (0-10); HEMATOCRIT 31 % (40-54); HEMOGLOBIN 10.8 G/DL (13.3-17.7); LYMPHOCYTES # (AUTO) 0.5 X 10^3 (1.0-4.0); LYMPHOCYTES % (AUTO) 14 % (12-44); MEAN CORPUSCULAR HEMOGLOBIN 41 PG (25-34); MEAN CORPUSCULAR HGB CONC 35 G/DL (32-36); MEAN CORPUSCULAR VOLUME 118 FL (80-99); MEAN PLATELET VOLUME 8.8 FL (7.4-10.4); MONOCYTES # (AUTO) 0.5 X 10^3 (0.0-1.0); MONOCYTES % (AUTO) 14 % (0-12); NEUTROPHILS # (AUTO) 2.4 X 10^3 (1.8-7.8); NEUTROPHILS % (AUTO) 66 % (42-75); PLATELET COUNT 215 10^3/uL (130-400); RED BLOOD COUNT 2.62 10^6/uL (4.35-5.85); RED CELL DISTRIBUTION WIDTH 12.5 % (10.0-14.5); WHITE BLOOD COUNT 3.7 10^3/uL (4.3-11.0)
[2018-03-17 12:02] LABS: ALANINE AMINOTRANSFERASE 77 U/L (0-55); ALKALINE PHOSPHATASE 204 U/L (40-136); BUN/CREATININE RATIO 16; CALCIUM 9.3 MG/DL (8.5-10.1); CARBON DIOXIDE 24 MMOL/L (21-32); CHLORIDE 103 MMOL/L (98-107); CREATININE SERUM 0.77 MG/DL (0.60-1.30); GFR ESTIMATED > 60; GLUCOSE 90 MG/DL (70-105); POTASSIUM 4.8 MMOL/L (3.6-5.0); SODIUM 135 MMOL/L (135-145); TOTAL PROTEIN 6.4 GM/DL (6.4-8.2)
[~2018-04-12 14:10] MED LIST changes: +ACYC800T; +BUDE3CAP5; +DAPS100T3; +LOSA50TA36; +METO-333; +ONDA8TAB13; +PANT40TA3
== END 2018-05-06 11:10 | disposition home or self-care (01) ==
LOC: ONC 14:10
PROVIDERS: ATTEND Internal Medicine Hematology & Oncology
DX: D46.9 Myelodysplastic syndrome, unspecified (principal); I10 Essential (primary) hypertension; E78.5 Hyperlipidemia, unspecified; Z79.899 Other long term (current) drug therapy; Z79.82 Long term (current) use of aspirin
CPT/HCPCS: 36415; 80053; 83615; 85025; 99213

== ENCOUNTER 2018-06-09 10:44 | Outpatient (RCR) | payer MEDICARE, OTHER ==
[2018-05-12 10:30] LABS: BASOPHILS % (AUTO) 1 % (0-10); EOSINOPHILS # (AUTO) 0.4 10^3/uL (0.0-0.3); EOSINOPHILS % (AUTO) 8 % (0-10); HEMATOCRIT 32 % (40-54); HEMOGLOBIN 11.3 G/DL (13.3-17.7); LYMPHOCYTES # (AUTO) 0.8 X 10^3 (1.0-4.0); LYMPHOCYTES % (AUTO) 15 % (12-44); MEAN CORPUSCULAR HEMOGLOBIN 41 PG (25-34); MEAN CORPUSCULAR HGB CONC 36 G/DL (32-36); MEAN CORPUSCULAR VOLUME 115 FL (80-99); MEAN PLATELET VOLUME 8.8 FL (7.4-10.4); MONOCYTES # (AUTO) 0.8 X 10^3 (0.0-1.0); MONOCYTES % (AUTO) 15 % (0-12); NEUTROPHILS # (AUTO) 3.2 X 10^3 (1.8-7.8); NEUTROPHILS % (AUTO) 62 % (42-75); PLATELET COUNT 219 10^3/uL (130-400); RED BLOOD COUNT 2.74 10^6/uL (4.35-5.85); RED CELL DISTRIBUTION WIDTH 12.8 % (10.0-14.5); WHITE BLOOD COUNT 5.3 10^3/uL (4.3-11.0)
[2018-05-12 10:54] LABS: ALANINE AMINOTRANSFERASE 47 U/L (0-55); ALBUMIN 4.1 GM/DL (3.2-4.5); ALKALINE PHOSPHATASE 186 U/L (40-136); BILIRUBIN,TOTAL 0.9 MG/DL (0.1-1.0); BUN/CREATININE RATIO 15; CALCIUM 9.5 MG/DL (8.5-10.1); CARBON DIOXIDE 25 MMOL/L (21-32); CHLORIDE 104 MMOL/L (98-107); CREATININE SERUM 0.86 MG/DL (0.60-1.30); GFR ESTIMATED > 60; GLUCOSE 100 MG/DL (70-105); POTASSIUM 4.3 MMOL/L (3.6-5.0); SODIUM 136 MMOL/L (135-145); TOTAL PROTEIN 6.7 GM/DL (6.4-8.2)
[~2018-06-09 10:44] MED LIST changes: -LOSA50TA36; +LOSA50TA7
[2018-06-09 11:09] LABS: BASOPHILS % (AUTO) 0 % (0-10); EOSINOPHILS # (AUTO) 0.3 10^3/uL (0.0-0.3); EOSINOPHILS % (AUTO) 7 % (0-10); HEMATOCRIT 33 % (40-54); HEMOGLOBIN 11.3 G/DL (13.3-17.7); LYMPHOCYTES # (AUTO) 0.6 X 10^3 (1.0-4.0); LYMPHOCYTES % (AUTO) 13 % (12-44); MEAN CORPUSCULAR HEMOGLOBIN 40 PG (25-34); MEAN CORPUSCULAR HGB CONC 34 G/DL (32-36); MEAN CORPUSCULAR VOLUME 117 FL (80-99); MEAN PLATELET VOLUME 8.5 FL (7.4-10.4); MONOCYTES # (AUTO) 0.9 X 10^3 (0.0-1.0); MONOCYTES % (AUTO) 18 % (0-12); NEUTROPHILS # (AUTO) 3.1 X 10^3 (1.8-7.8); NEUTROPHILS % (AUTO) 62 % (42-75); PLATELET COUNT 241 10^3/uL (130-400); RED BLOOD COUNT 2.83 10^6/uL (4.35-5.85); RED CELL DISTRIBUTION WIDTH 12.8 % (10.0-14.5)
[2018-06-09 11:38] LABS: ALANINE AMINOTRANSFERASE 49 U/L (0-55); ALBUMIN 4.1 GM/DL (3.2-4.5); ALKALINE PHOSPHATASE 193 U/L (40-136); BILIRUBIN,TOTAL 0.8 MG/DL (0.1-1.0); BUN/CREATININE RATIO 21; CALCIUM 9.8 MG/DL (8.5-10.1); CARBON DIOXIDE 27 MMOL/L (21-32); CHLORIDE 103 MMOL/L (98-107); CREATININE SERUM 0.82 MG/DL (0.60-1.30); GFR ESTIMATED > 60; GLUCOSE 101 MG/DL (70-105); POTASSIUM 4.7 MMOL/L (3.6-5.0); SODIUM 136 MMOL/L (135-145); TOTAL PROTEIN 6.8 GM/DL (6.4-8.2)
== END 2018-06-11 | disposition home or self-care (01) ==
LOC: ONC 10:44
PROVIDERS: ATTEND Internal Medicine Hematology & Oncology
DX: D46.9 Myelodysplastic syndrome, unspecified (principal); I10 Essential (primary) hypertension; E78.5 Hyperlipidemia, unspecified; Z79.899 Other long term (current) drug therapy; Z79.82 Long term (current) use of aspirin
CPT/HCPCS: 36415; 80053; 83615; 85025; 99213

== ENCOUNTER 2018-09-08 10:19 | Outpatient (RCR) | payer MEDICARE, OTHER ==
[2018-07-13 10:06] LABS: BASOPHILS % (AUTO) 1 % (0-10); EOSINOPHILS # (AUTO) 0.2 10^3/uL (0.0-0.3); EOSINOPHILS % (AUTO) 6 % (0-10); HEMATOCRIT 30 % (40-54); HEMOGLOBIN 10.8 G/DL (13.3-17.7); LYMPHOCYTES # (AUTO) 0.8 X 10^3 (1.0-4.0); LYMPHOCYTES % (AUTO) 20 % (12-44); MEAN CORPUSCULAR HEMOGLOBIN 42 PG (25-34); MEAN CORPUSCULAR HGB CONC 36 G/DL (32-36); MEAN CORPUSCULAR VOLUME 117 FL (80-99); MEAN PLATELET VOLUME 8.6 FL (7.4-10.4); MONOCYTES # (AUTO) 0.8 X 10^3 (0.0-1.0); MONOCYTES % (AUTO) 20 % (0-12); NEUTROPHILS # (AUTO) 2.1 X 10^3 (1.8-7.8); NEUTROPHILS % (AUTO) 54 % (42-75); PLATELET COUNT 266 10^3/uL (130-400); RED BLOOD COUNT 2.59 10^6/uL (4.35-5.85); RED CELL DISTRIBUTION WIDTH 12.6 % (10.0-14.5); WHITE BLOOD COUNT 3.9 10^3/uL (4.3-11.0)
[2018-07-13 10:24] LABS: ALANINE AMINOTRANSFERASE 49 U/L (0-55); ALBUMIN 4.1 GM/DL (3.2-4.5); ALKALINE PHOSPHATASE 147 U/L (40-136); BILIRUBIN,TOTAL 0.7 MG/DL (0.1-1.0); BUN/CREATININE RATIO 11; CALCIUM 9.3 MG/DL (8.5-10.1); CARBON DIOXIDE 22 MMOL/L (21-32); CHLORIDE 105 MMOL/L (98-107); GFR ESTIMATED > 60; GLUCOSE 92 MG/DL (70-105); POTASSIUM 4.2 MMOL/L (3.6-5.0); SODIUM 138 MMOL/L (135-145); TOTAL PROTEIN 6.7 GM/DL (6.4-8.2)
[2018-07-29 15:04] LABS: ALANINE AMINOTRANSFERASE 74 U/L (0-55); ALKALINE PHOSPHATASE 196 U/L (40-136); BILIRUBIN,TOTAL 0.8 MG/DL (0.1-1.0); BUN/CREATININE RATIO 21; CALCIUM 9.8 MG/DL (8.5-10.1); CARBON DIOXIDE 25 MMOL/L (21-32); CHLORIDE 101 MMOL/L (98-107); GFR ESTIMATED > 60; GLUCOSE 105 MG/DL (70-105); POTASSIUM 4.2 MMOL/L (3.6-5.0); SODIUM 135 MMOL/L (135-145); TOTAL PROTEIN 7.1 GM/DL (6.4-8.2)
[2018-07-29 15:26] LABS: ALBUMIN 4.2 GM/DL (3.2-4.5)
[2018-09-08 10:33] LABS: BASOPHILS % (AUTO) 0 % (0-10); EOSINOPHILS # (AUTO) 0.2 10^3/uL (0.0-0.3); EOSINOPHILS % (AUTO) 5 % (0-10); HEMATOCRIT 34 % (40-54); HEMOGLOBIN 11.7 G/DL (13.3-17.7); LYMPHOCYTES # (AUTO) 0.7 X 10^3 (1.0-4.0); LYMPHOCYTES % (AUTO) 16 % (12-44); MEAN CORPUSCULAR HEMOGLOBIN 40 PG (25-34); MEAN CORPUSCULAR HGB CONC 34 G/DL (32-36); MEAN CORPUSCULAR VOLUME 116 FL (80-99); MEAN PLATELET VOLUME 8.3 FL (7.4-10.4); MONOCYTES # (AUTO) 0.7 X 10^3 (0.0-1.0); MONOCYTES % (AUTO) 16 % (0-12); NEUTROPHILS # (AUTO) 2.9 X 10^3 (1.8-7.8); NEUTROPHILS % (AUTO) 64 % (42-75); PLATELET COUNT 262 10^3/uL (130-400); RED BLOOD COUNT 2.95 10^6/uL (4.35-5.85); RED CELL DISTRIBUTION WIDTH 12.6 % (10.0-14.5); WHITE BLOOD COUNT 4.5 10^3/uL (4.3-11.0)
[2018-09-08 10:55] LABS: ALANINE AMINOTRANSFERASE 52 U/L (0-55); ALBUMIN 4.2 GM/DL (3.2-4.5); ALKALINE PHOSPHATASE 109 U/L (40-136); BILIRUBIN,TOTAL 0.8 MG/DL (0.1-1.0); BUN/CREATININE RATIO 13; CALCIUM 9.4 MG/DL (8.5-10.1); CARBON DIOXIDE 22 MMOL/L (21-32); CHLORIDE 103 MMOL/L (98-107); CREATININE SERUM 0.94 MG/DL (0.60-1.30); GFR ESTIMATED > 60; GLUCOSE 87 MG/DL (70-105); POTASSIUM 4.3 MMOL/L (3.6-5.0); SODIUM 135 MMOL/L (135-145)
== END 2018-10-11 | disposition home or self-care (01) ==
LOC: ONC 10:19
PROVIDERS: ATTEND Internal Medicine Hematology & Oncology
DX: D46.9 Myelodysplastic syndrome, unspecified (principal); I10 Essential (primary) hypertension; E78.5 Hyperlipidemia, unspecified; Z79.899 Other long term (current) drug therapy; Z79.82 Long term (current) use of aspirin
CPT/HCPCS: 36415; 80053; 83615; 85025; 99213

== ENCOUNTER 2018-12-27 10:34 | Outpatient (RCR) | payer MEDICARE, OTHER ==
[2018-10-26 10:24] LABS: BASOPHILS % (AUTO) 1 % (0-10); EOSINOPHILS # (AUTO) 0.4 10^3/uL (0.0-0.3); EOSINOPHILS % (AUTO) 7 % (0-10); HEMATOCRIT 38 % (40-54); HEMOGLOBIN 12.8 G/DL (13.3-17.7); LYMPHOCYTES # (AUTO) 0.9 X 10^3 (1.0-4.0); LYMPHOCYTES % (AUTO) 15 % (12-44); MEAN CORPUSCULAR HEMOGLOBIN 38 PG (25-34); MEAN CORPUSCULAR HGB CONC 34 G/DL (32-36); MEAN CORPUSCULAR VOLUME 112 FL (80-99); MEAN PLATELET VOLUME 8.4 FL (7.4-10.4); MONOCYTES # (AUTO) 0.8 X 10^3 (0.0-1.0); MONOCYTES % (AUTO) 13 % (0-12); NEUTROPHILS # (AUTO) 3.8 X 10^3 (1.8-7.8); NEUTROPHILS % (AUTO) 64 % (42-75); PLATELET COUNT 224 10^3/uL (130-400); RED CELL DISTRIBUTION WIDTH 11.6 % (10.0-14.5)
[2018-10-26 10:45] LABS: ALANINE AMINOTRANSFERASE 37 U/L (0-55); ALBUMIN 4.3 GM/DL (3.2-4.5); ALKALINE PHOSPHATASE 117 U/L (40-136); BILIRUBIN,TOTAL 0.4 MG/DL (0.1-1.0); BUN/CREATININE RATIO 11; CALCIUM 9.6 MG/DL (8.5-10.1); CARBON DIOXIDE 24 MMOL/L (21-32); CHLORIDE 102 MMOL/L (98-107); GFR ESTIMATED > 60; GLUCOSE 102 MG/DL (70-105); POTASSIUM 4.3 MMOL/L (3.6-5.0); SODIUM 134 MMOL/L (135-145); TOTAL PROTEIN 7.2 GM/DL (6.4-8.2)
[~2018-12-27 10:34] MED LIST changes: +LOSA50TA63; -LOSA50TA7
[2018-12-27 11:00] LABS: BASOPHILS % (AUTO) 1 % (0-10); EOSINOPHILS # (AUTO) 0.6 10^3/uL (0.0-0.3); EOSINOPHILS % (AUTO) 11 % (0-10); HEMATOCRIT 38 % (40-54); HEMOGLOBIN 12.8 G/DL (13.3-17.7); LYMPHOCYTES % (AUTO) 19 % (12-44); MEAN CORPUSCULAR HEMOGLOBIN 35 PG (25-34); MEAN CORPUSCULAR HGB CONC 33 G/DL (32-36); MEAN CORPUSCULAR VOLUME 106 FL (80-99); MEAN PLATELET VOLUME 9.1 FL (7.4-10.4); MONOCYTES # (AUTO) 0.7 X 10^3 (0.0-1.0); MONOCYTES % (AUTO) 14 % (0-12); NEUTROPHILS # (AUTO) 2.8 X 10^3 (1.8-7.8); NEUTROPHILS % (AUTO) 55 % (42-75); PLATELET COUNT 232 10^3/uL (130-400); RED CELL DISTRIBUTION WIDTH 12.4 % (10.0-14.5)
[2018-12-27 11:27] LABS: ALANINE AMINOTRANSFERASE 34 U/L (0-55); ALBUMIN 4.1 GM/DL (3.2-4.5); ALKALINE PHOSPHATASE 137 U/L (40-136); BILIRUBIN,TOTAL 0.5 MG/DL (0.1-1.0); BUN/CREATININE RATIO 14; CARBON DIOXIDE 23 MMOL/L (21-32); CHLORIDE 105 MMOL/L (98-107); CREATININE SERUM 1.07 MG/DL (0.60-1.30); GFR ESTIMATED > 60; GLUCOSE 100 MG/DL (70-105); POTASSIUM 4.5 MMOL/L (3.6-5.0); SODIUM 137 MMOL/L (135-145); TOTAL PROTEIN 7.3 GM/DL (6.4-8.2)
[2018-12-27 11:52] LABS: CALCIUM 9.7 MG/DL (8.5-10.1)
== END 2019-01-24 | disposition home or self-care (01) ==
LOC: ONC 10:34
PROVIDERS: ATTEND Internal Medicine Hematology & Oncology
DX: D46.9 Myelodysplastic syndrome, unspecified (principal); I10 Essential (primary) hypertension; E78.5 Hyperlipidemia, unspecified; Z79.899 Other long term (current) drug therapy; Z79.82 Long term (current) use of aspirin
CPT/HCPCS: 36415; 80053; 83615; 85025; 99213

== ENCOUNTER 2019-04-25 09:51 | Outpatient (RCR) | payer MEDICARE, OTHER ==
[2019-02-21 10:20] LABS: BASOPHILS % (AUTO) 1 % (0-10); EOSINOPHILS # (AUTO) 0.4 10^3/uL (0.0-0.3); EOSINOPHILS % (AUTO) 10 % (0-10); HEMATOCRIT 35 % (40-54); HEMOGLOBIN 12.1 G/DL (13.3-17.7); LYMPHOCYTES % (AUTO) 24 % (12-44); MEAN CORPUSCULAR HEMOGLOBIN 34 PG (25-34); MEAN CORPUSCULAR HGB CONC 34 G/DL (32-36); MEAN CORPUSCULAR VOLUME 101 FL (80-99); MEAN PLATELET VOLUME 8.8 FL (7.4-10.4); MONOCYTES # (AUTO) 0.7 X 10^3 (0.0-1.0); MONOCYTES % (AUTO) 16 % (0-12); NEUTROPHILS # (AUTO) 2.1 X 10^3 (1.8-7.8); NEUTROPHILS % (AUTO) 50 % (42-75); PLATELET COUNT 233 10^3/uL (130-400); RED CELL DISTRIBUTION WIDTH 12.9 % (10.0-14.5); WHITE BLOOD COUNT 4.3 10^3/uL (4.3-11.0)
[2019-02-21 10:42] LABS: ALANINE AMINOTRANSFERASE 54 U/L (0-55); ALBUMIN 4.2 GM/DL (3.2-4.5); ALKALINE PHOSPHATASE 123 U/L (40-136); BILIRUBIN,TOTAL 0.3 MG/DL (0.1-1.0); BUN/CREATININE RATIO 19; CARBON DIOXIDE 18 MMOL/L (21-32); CHLORIDE 109 MMOL/L (98-107); CREATININE SERUM 1.02 MG/DL (0.60-1.30); GFR ESTIMATED > 60; GLUCOSE 96 MG/DL (70-105); POTASSIUM 4.5 MMOL/L (3.6-5.0); SODIUM 138 MMOL/L (135-145); TOTAL PROTEIN 6.9 GM/DL (6.4-8.2)
[2019-04-25 10:27] LABS: BASOPHILS % (AUTO) 1 % (0-10); EOSINOPHILS # (AUTO) 0.5 10^3/uL (0.0-0.3); EOSINOPHILS % (AUTO) 10 % (0-10); HEMATOCRIT 38 % (40-54); HEMOGLOBIN 13.1 G/DL (13.3-17.7); LYMPHOCYTES % (AUTO) 21 % (12-44); MEAN CORPUSCULAR HEMOGLOBIN 35 PG (25-34); MEAN CORPUSCULAR HGB CONC 34 G/DL (32-36); MEAN CORPUSCULAR VOLUME 103 FL (80-99); MEAN PLATELET VOLUME 9.3 FL (7.4-10.4); MONOCYTES # (AUTO) 0.6 X 10^3 (0.0-1.0); MONOCYTES % (AUTO) 13 % (0-12); NEUTROPHILS # (AUTO) 2.6 X 10^3 (1.8-7.8); NEUTROPHILS % (AUTO) 56 % (42-75); PLATELET COUNT 205 10^3/uL (130-400); RED CELL DISTRIBUTION WIDTH 12.7 % (10.0-14.5); WHITE BLOOD COUNT 4.6 10^3/uL (4.3-11.0)
[2019-04-25 10:41] LABS: ALANINE AMINOTRANSFERASE 48 U/L (0-55); ALBUMIN 4.5 GM/DL (3.2-4.5); ALKALINE PHOSPHATASE 100 U/L (40-136); BILIRUBIN,TOTAL 0.5 MG/DL (0.1-1.0); BUN/CREATININE RATIO 14; CALCIUM 10.8 MG/DL (8.5-10.1); CARBON DIOXIDE 23 MMOL/L (21-32); CHLORIDE 104 MMOL/L (98-107); CREATININE SERUM 1.06 MG/DL (0.60-1.30); GFR ESTIMATED > 60; GLUCOSE 101 MG/DL (70-105); POTASSIUM 4.3 MMOL/L (3.6-5.0); SODIUM 137 MMOL/L (135-145); TOTAL PROTEIN 7.4 GM/DL (6.4-8.2)
== END 2019-05-22 | disposition home or self-care (01) ==
LOC: ONC 09:51
PROVIDERS: ATTEND Internal Medicine Hematology & Oncology
DX: D46.9 Myelodysplastic syndrome, unspecified (principal); I10 Essential (primary) hypertension; E78.5 Hyperlipidemia, unspecified; Z79.899 Other long term (current) drug therapy; Z79.82 Long term (current) use of aspirin
CPT/HCPCS: 36415; 80053; 83615; 85025; 99213

== ENCOUNTER 2019-09-20 10:22 | Outpatient (RCR) | payer MEDICARE, OTHER ==
[2019-07-18 11:04] LABS: BASOPHILS # (AUTO) 0.1 10^3/uL (0.0-0.1); BASOPHILS % (AUTO) 1 % (0-10); EOSINOPHILS # (AUTO) 0.8 10^3/uL (0.0-0.3); EOSINOPHILS % (AUTO) 13 % (0-10); HEMATOCRIT 38 % (40-54); HEMOGLOBIN 12.9 G/DL (13.3-17.7); LYMPHOCYTES # (AUTO) 1.3 X 10^3 (1.0-4.0); LYMPHOCYTES % (AUTO) 24 % (12-44); MEAN CORPUSCULAR HEMOGLOBIN 35 PG (25-34); MEAN CORPUSCULAR HGB CONC 34 G/DL (32-36); MEAN CORPUSCULAR VOLUME 102 FL (80-99); MEAN PLATELET VOLUME 9.1 FL (7.4-10.4); MONOCYTES # (AUTO) 0.8 X 10^3 (0.0-1.0); MONOCYTES % (AUTO) 14 % (0-12); NEUTROPHILS # (AUTO) 2.7 X 10^3 (1.8-7.8); NEUTROPHILS % (AUTO) 48 % (42-75); PLATELET COUNT 223 10^3/uL (130-400); RED CELL DISTRIBUTION WIDTH 12.6 % (10.0-14.5); WHITE BLOOD COUNT 5.6 10^3/uL (4.3-11.0)
[2019-07-18 11:25] LABS: ALANINE AMINOTRANSFERASE 56 U/L (0-55); ALBUMIN 4.2 GM/DL (3.2-4.5); ALKALINE PHOSPHATASE 158 U/L (40-136); BILIRUBIN,TOTAL 0.5 MG/DL (0.1-1.0); BUN/CREATININE RATIO 13; CALCIUM 9.5 MG/DL (8.5-10.1); CARBON DIOXIDE 26 MMOL/L (21-32); CHLORIDE 105 MMOL/L (98-107); CREATININE SERUM 1.03 MG/DL (0.60-1.30); GFR ESTIMATED > 60; GLUCOSE 98 MG/DL (70-105); POTASSIUM 4.5 MMOL/L (3.6-5.0); SODIUM 138 MMOL/L (135-145); TOTAL PROTEIN 7.1 GM/DL (6.4-8.2)
[2019-09-20 10:48] LABS: BASOPHILS % (AUTO) 1 % (0-10); EOSINOPHILS # (AUTO) 0.5 10^3/uL (0.0-0.3); EOSINOPHILS % (AUTO) 10 % (0-10); HEMATOCRIT 37 % (40-54); HEMOGLOBIN 13.3 G/DL (13.3-17.7); LYMPHOCYTES # (AUTO) 1.3 X 10^3 (1.0-4.0); LYMPHOCYTES % (AUTO) 23 % (12-44); MEAN CORPUSCULAR HEMOGLOBIN 35 PG (25-34); MEAN CORPUSCULAR HGB CONC 36 G/DL (32-36); MEAN CORPUSCULAR VOLUME 98 FL (80-99); MEAN PLATELET VOLUME 8.9 FL (7.4-10.4); MONOCYTES # (AUTO) 0.8 X 10^3 (0.0-1.0); MONOCYTES % (AUTO) 14 % (0-12); NEUTROPHILS # (AUTO) 2.9 X 10^3 (1.8-7.8); NEUTROPHILS % (AUTO) 53 % (42-75); PLATELET COUNT 217 10^3/uL (130-400); RED CELL DISTRIBUTION WIDTH 12.3 % (10.0-14.5); WHITE BLOOD COUNT 5.5 10^3/uL (4.3-11.0)
[2019-09-20 11:11] LABS: ALANINE AMINOTRANSFERASE 55 U/L (0-55); ALBUMIN 4.5 GM/DL (3.2-4.5); ALKALINE PHOSPHATASE 113 U/L (40-136); BILIRUBIN,TOTAL 0.5 MG/DL (0.1-1.0); BUN/CREATININE RATIO 15; CALCIUM 9.8 MG/DL (8.5-10.1); CARBON DIOXIDE 21 MMOL/L (21-32); CHLORIDE 102 MMOL/L (98-107); CREATININE SERUM 1.01 MG/DL (0.60-1.30); GFR ESTIMATED > 60; GLUCOSE 115 MG/DL (70-105); POTASSIUM 4.9 MMOL/L (3.6-5.0); SODIUM 134 MMOL/L (135-145); TOTAL PROTEIN 7.2 GM/DL (6.4-8.2)
== END 2019-10-16 | disposition home or self-care (01) ==
LOC: ONC 10:22
PROVIDERS: ATTEND Internal Medicine Hematology & Oncology
DX: D46.9 Myelodysplastic syndrome, unspecified (principal); Z92.21 Personal history of antineoplastic chemotherapy
CPT/HCPCS: 36415; 80053; 83615; 85025; 99213

== ENCOUNTER 2019-09-27 20:44 | Outpatient (CLI) | payer MEDICARE, OTHER | END 2019-09-28 05:50 | disposition home or self-care (01) | LOC: SLEEP 20:44 | PROVIDERS: ATTEND Nurse Practitioner Family | DX: G47.33 Obstructive sleep apnea (adult) (pediatric) (principal); G47.36 Sleep related hypoventilation in conditions classified elsewhere ==

== ENCOUNTER 2019-12-12 05:40 | Outpatient (CLI) | payer MEDICARE, OTHER ==
[~2019-12-12] VITALS: Ht 180.3 cm; Wt 90.8 kg
[2019-12-12] MEDS ORDERED: ATOR20TA66 PO (14:18)
[2019-12-12] MEDS ORDERED: METO100T12 PO (14:18)
[2019-12-12] MEDS ORDERED: TRIA1TAB2 PO (14:18)
== END 2019-12-12 14:21 | disposition home or self-care (01) ==
LOC: PREOP 05:40
PROVIDERS: ATTEND Surgery
DX: Z01.818 Encounter for other preprocedural examination (principal)

== ENCOUNTER → 2020-04-03 | Outpatient (CLI) | payer MEDICARE, OTHER ==
[~2020-04-03] MED LIST changes: +AMLO5TAB9 PO; +ATOR20TA66 PO; +METO100T12 PO; +TRIA1TAB2 PO
[2020-04-03 10:25] LABS: BASOPHILS % (AUTO) 1 % (0-10); EOSINOPHILS # (AUTO) 0.6 10^3/uL (0.0-0.3); EOSINOPHILS % (AUTO) 12 % (0-10); HEMATOCRIT 35 % (40-54); HEMOGLOBIN 12.2 G/DL (13.3-17.7); LYMPHOCYTES # (AUTO) 1.2 X 10^3 (1.0-4.0); LYMPHOCYTES % (AUTO) 25 % (12-44); MEAN CORPUSCULAR HEMOGLOBIN 35 PG (25-34); MEAN CORPUSCULAR HGB CONC 35 G/DL (32-36); MEAN CORPUSCULAR VOLUME 101 FL (80-99); MEAN PLATELET VOLUME 8.7 FL (7.4-10.4); MONOCYTES # (AUTO) 0.8 X 10^3 (0.0-1.0); MONOCYTES % (AUTO) 17 % (0-12); NEUTROPHILS # (AUTO) 2.2 X 10^3 (1.8-7.8); NEUTROPHILS % (AUTO) 46 % (42-75); PLATELET COUNT 223 10^3/uL (130-400); RED CELL DISTRIBUTION WIDTH 13.3 % (10.0-14.5); WHITE BLOOD COUNT 4.8 10^3/uL (4.3-11.0)
[2020-04-03 10:40] LABS: ALANINE AMINOTRANSFERASE 89 U/L (0-55); ALBUMIN 4.1 GM/DL (3.2-4.5); ALKALINE PHOSPHATASE 111 U/L (40-136); BILIRUBIN,TOTAL 0.5 MG/DL (0.1-1.0); BUN/CREATININE RATIO 14; CALCIUM 9.5 MG/DL (8.5-10.1); CARBON DIOXIDE 24 MMOL/L (21-32); CHLORIDE 100 MMOL/L (98-107); CREATININE SERUM 0.92 MG/DL (0.60-1.30); GFR ESTIMATED > 60; GLUCOSE 95 MG/DL (70-105); POTASSIUM 4.4 MMOL/L (3.6-5.0); SODIUM 131 MMOL/L (135-145); TOTAL PROTEIN 6.7 GM/DL (6.4-8.2)
== END ==
LOC: EDSTATUS 10-17 16:26 → ONC 10:01
PROVIDERS: ATTEND Internal Medicine Hematology & Oncology
DX: D46.Z Other myelodysplastic syndromes (principal); I10 Essential (primary) hypertension; E78.5 Hyperlipidemia, unspecified; D70.9 Neutropenia, unspecified; Z92.21 Personal history of antineoplastic chemotherapy
CPT/HCPCS: 80053; 83615; 85025; G0463; 99213

== ENCOUNTER 2020-07-05 05:37 | Outpatient (RCR) | payer MEDICARE, OTHER ==
[~2020-07-05] VITALS: Ht 177 cm; Wt 79.5 kg
[~2020-07-05 05:37] MED LIST changes: -PANT40TA3; +PANT40TA52 PO; +PRAZ1CAP2 PO
== END 2020-07-05 09:41 | disposition home or self-care (01) ==
LOC: PREOP 05:37
PROVIDERS: ATTEND Surgery
DX: Z01.812 Encounter for preprocedural laboratory examination (principal); Z20.828 Contact with and (suspected) exposure to other viral communicable diseases
CPT/HCPCS: 87635

== ENCOUNTER 2020-08-16 05:29 | Outpatient (RCR) | payer MEDICARE, OTHER ==
[~2020-08-16] VITALS: Ht 180.3 cm; Wt 87.7 kg
[~2020-08-16 05:29] MED LIST changes: +AMLO-250 PO; -AMLO5TAB9 PO
== END 2020-08-16 09:45 | disposition home or self-care (01) ==
LOC: PREOP 05:29
PROVIDERS: ATTEND Surgery
DX: Z01.812 Encounter for preprocedural laboratory examination (principal); Z20.828 Contact with and (suspected) exposure to other viral communicable diseases
CPT/HCPCS: 87635

== ENCOUNTER 2020-08-20 06:57 | Day surgery (SDC) | payer MEDICARE, OTHER ==
[2020-08-20] VITALS (8 sets, daily range): BP systolic 105–139; BP diastolic 55–86
[~2020-08-20] VITALS: Ht 180.3 cm; Wt 87.7 kg
[2020-08-20] MEDS ORDERED: MIDAZOLAM 2 MG/2 ML (VERSED) VIAL ONE (07:05)
[2020-08-20] MEDS ORDERED: PROPOFOL INJECTION 50 ML IV ONE (07:05)
[2020-08-20] MEDS ORDERED: LACTATED RINGERS 1,000 ML IV STA (07:05)
[2020-08-20] MEDS ORDERED: HURRICAINE EXT TUBE (BENZOCAINE) XX PRN (07:15)
[2020-08-20] MEDS ORDERED: LACTATED RINGERS 1,000 ML IV ONE (07:15)
[2020-08-20] MEDS ORDERED: HURRICAINE EXT TUBE (BENZOCAINE) ONE (08:22)
--- NOTE | 2020-08-20 08:35 | Progress Note-Post Operative ---
Post-Operative Progess Note Surgeon (s)/Pitch Filler (s) Surgeon MEGAN VILLEDA DO Pitch Filler: none Pre-Operative Diagnosis HX of Clark's Esophagus Post-Operative Diagnosis Esophagitis Hiatal Hernia Gastric polyp Gastritis Procedure & Operative Findings Date of Procedure 08/20/20 Procedure Performed/Findings EGD with bx Anesthesia Type IV sedation by ONLINE SERVICES MANAGER Estimated Blood Loss Estimated blood loss (mL): scant Specimens/Packing Specimens Removed antral bx polyp from body of stomach GE jxn bx MEGAN VILLEDA DO Aug 20, 2020 08:35
--- NOTE | 2020-08-20 08:38 | Endoscopy Discharge Instruct ---
Endo Procedure/Findings Findings 1.: Gastritis 2.: Hiatal Hernia 3.: Polyp Discharge Instructions - Activity: You might feel a little sleepy until tomorrow. This is due to the medicine you received to relax you. Until tomorrow, you should: NOT drive a car, operate machinery or power tools. NOT drink any alcoholic beverages. NOT make any important decisions or sign importortant papers. Do not return to work until tomorrow, unless otherwise instructed. Resume previous activities tomorrow. Diet: Start by taking liquids. If you tolerate liquids, advance to solid food. 1.: EGD in 1 year Notify Physician - If you experience excessive bleeding, unusual abdominal pain, fever, or chest p ain, contact your doctor immediately. MEGAN VILLEDA DO Aug 20, 2020 08:38
--- NOTE | 2020-08-20 10:21 | Anesthesia-General Post-Op ---
MAC Patient Condition Mental Status/LOC: Same as Preop Cardiovascular: Satisfactory Nausea/Vomiting: Absent Respiratory: Satisfactory Pain: Controlled Complications: Absent Post Op Complications Complications None Follow Up Care/Instructions Patient Instructions None needed. Anesthesiology Discharge Order Discharge Order Patient is doing well, no complaints, stable vital signs, no apparent adverse anesthesia problems. No complications reported per nursing. MARICARMEN JEROME CRNA Aug 20, 2020 10:21
--- NOTE | 2020-08-20 14:45 | OPERATIVE REPORT ---
DATE OF SERVICE: 08/20/2020 PREOPERATIVE DIAGNOSIS: History of Clark's esophagus. POSTOPERATIVE DIAGNOSES: Esophagitis, hiatal hernia, gastritis and gastric polyp. PROCEDURES PERFORMED: EGD with biopsy. SURGEON: Aditya Peterson DO PRINTING PRESS OPERATOR APPRENTICE: None. ANESTHESIA: IV sedation by the PHYSICIAN RELATIONS MANAGER. SPECIMEN: Biopsy of the antrum, biopsy from the body of stomach. It was a polyp and two biopsies from the GE junction. BLOOD LOSS: Scant. FLUIDS: Per anesthesia. POSTOPERATIVE CONDITION: Stable. INDICATION FOR PROCEDURE: The patient is a 70-year-old male, who has a history of Clark's esophagus and needed a followup. FINDINGS: The patient had some mild esophagitis, looked like had some changes from acid reflux. He also had some gastritis and he had a polyp seen in the body of stomach, as well looked like he had a small hiatal hernia. PROCEDURE NOTE: After informed consent was obtained, the patient was brought to the endoscopy suite and placed in the bed in a left lateral decubitus position. He was administered IV sedation by the PHYSICIAN RELATIONS MANAGER, who then monitored his vitals the entire time, heart rate, blood pressure and pulse ox and the scope was inserted down the mouth through the esophagus into the stomach. Upon entering the stomach, I noted some gastritis in the antrum, took a picture, pushed into duodenum and duodenum looked fine. I pulled back, did a biopsy of the antrum and then pulled back, saw a polyp, did a biopsy of the body of stomach to remove this polyp. Retroflexed the scope, saw what looked like a small hiatal hernia. Pulled the scope up into the GE junction. There were some changes from acid reflux, did two biopsies here and then pushed the scope into the stomach, suctioned all the air out of stomach and then pulled the scope up the esophagus and out the mouth. The patient tolerated the procedure and recovered in the endoscopy suite. Job ID: [id number] DocumentID: [id number] Dictated Date: 08/20/2020 09:47:26 Internet Marketing Specialist Date: 08/20/2020 14:43:46 Dictated By: ADITYA PETERSON DO
== END 2020-08-20 09:30 | disposition home or self-care (01) ==
LOC: ENDO 06:57
PROVIDERS: ATTEND Surgery
DX: K29.50 Unspecified chronic gastritis without bleeding (principal); K44.9 Diaphragmatic hernia without obstruction or gangrene; K31.7 Polyp of stomach and duodenum; K21.00 Gastro-esophageal reflux disease with esophagitis, without bleeding; K22.70 Barrett's esophagus without dysplasia; I10 Essential (primary) hypertension; G47.33 Obstructive sleep apnea (adult) (pediatric); Z79.899 Other long term (current) drug therapy
CPT/HCPCS: 88305

== ENCOUNTER → 2020-10-22 | Outpatient (CLI) | payer MEDICARE, OTHER ==
[2020-10-22 14:57] LABS: BASOPHILS # (AUTO) 0.1 10^3/uL (0.0-0.1); BASOPHILS % (AUTO) 1 % (0-10); EOSINOPHILS # (AUTO) 0.4 10^3/uL (0.0-0.3); EOSINOPHILS % (AUTO) 7 % (0-10); HEMATOCRIT 34 % (40-54); HEMOGLOBIN 12.1 g/dL (13.3-17.7); LYMPHOCYTES # (AUTO) 1.2 10^3/uL (1.0-4.0); LYMPHOCYTES % (AUTO) 19 % (12-44); MEAN CORPUSCULAR HEMOGLOBIN 34 pg (25-34); MEAN CORPUSCULAR HGB CONC 35 g/dL (32-36); MEAN CORPUSCULAR VOLUME 96 fL (80-99); MEAN PLATELET VOLUME 9.1 fL (9.0-12.2); MONOCYTES # (AUTO) 1.1 10^3/uL (0.0-1.0); MONOCYTES % (AUTO) 17 % (0-12); NEUTROPHILS # (AUTO) 3.6 10^3/uL (1.8-7.8); NEUTROPHILS % (AUTO) 56 % (42-75); PLATELET COUNT 209 10^3/uL (130-400); WHITE BLOOD COUNT 6.5 10^3/uL (4.3-11.0)
[2020-10-22 15:17] LABS: ALANINE AMINOTRANSFERASE 59 U/L (0-55); ALKALINE PHOSPHATASE 226 U/L (40-136); BILIRUBIN,TOTAL 0.4 MG/DL (0.1-1.0); BUN/CREATININE RATIO 15; CALCIUM 9.4 MG/DL (8.5-10.1); CARBON DIOXIDE 21 MMOL/L (21-32); CHLORIDE 98 MMOL/L (98-107); CREATININE SERUM 0.84 MG/DL (0.60-1.30); GFR ESTIMATED > 60; GLUCOSE 103 MG/DL (70-105); POTASSIUM 4.1 MMOL/L (3.6-5.0); SODIUM 129 MMOL/L (135-145)
== END ==
LOC: ONC 14:02
PROVIDERS: ATTEND Internal Medicine Hematology & Oncology
DX: D46.22 Refractory anemia with excess of blasts 2 (principal); D89.811 Chronic graft-versus-host disease; R03.0 Elevated blood-pressure reading, without diagnosis of hypertension; K21.9 Gastro-esophageal reflux disease without esophagitis; Z92.21 Personal history of antineoplastic chemotherapy; Z90.49 Acquired absence of other specified parts of digestive tract; Z98.890 Other specified postprocedural states; Z90.89 Acquired absence of other organs; Z87.891 Personal history of nicotine dependence
CPT/HCPCS: 80053; 83615; 85025; G0463; 99213

== ENCOUNTER → 2020-12-20 | Outpatient (CLI) | payer MEDICARE, OTHER ==
--- NOTE | 2020-12-20 17:07 | Diagnostic Imaging Report ---
PROCEDURE: CT head without contrast. TECHNIQUE: Multiple contiguous axial images were obtained through the brain without the use of intravenous contrast. Auto Exposure Controls were utilized during the CT exam to meet ALARA standards for radiation dose reduction. INDICATION: Syncope. COMPARISON: No prior studies are available for comparison. FINDINGS: There is some prominence of ventricles and sulci consistent with cerebral atrophy. Periventricular hypodensity is noted consistent with chronic microvascular ischemia. There is no sulcal effacement or midline shift. No acute intra-axial or extra-axial hemorrhage is detected. Cisterns are patent. Visualized paranasal sinuses are clear. IMPRESSION: Chronic changes. No acute intracranial process is detected. Dictated by: Dictated on workstation # [id number]
== END ==
LOC: RAD 13:10
PROVIDERS: ATTEND Internal Medicine
DX: G31.9 Degenerative disease of nervous system, unspecified (principal)
CPT/HCPCS: 70450

== ENCOUNTER → 2020-12-31 | Outpatient (CLI) | payer MEDICARE, OTHER | LOC: CARD 08:30 | PROVIDERS: ATTEND Internal Medicine Cardiovascular Disease | DX: I10 Essential (primary) hypertension (principal) | CPT/HCPCS: 93306 ==

== ENCOUNTER → 2021-01-30 | Outpatient (CLI) | payer MEDICARE, OTHER ==
[~2021-01-30] VITALS: Ht 177 cm; Wt 75.0 kg
[~2021-01-30] MED LIST changes: +ACYC-112; -ACYC800T; +CATHETER FLUSH 10 ML SYR IV PRN
[2021-01-30 08:52] VITALS: BP 162/76
[2021-01-30 08:57] VITALS: BP 206/67
[2021-01-30 09:03] VITALS: BP 212/76
--- NOTE | 2021-01-30 15:20 | Cardiology Stress Test Report ---
Stress Test Report Date of Procedure/Referring: Date of Procedure: Jan 30, 2021 PCP Viridiana Camacho MD Admitting Physician Mirna Marques DO Indications: HTN Baseline Heart Rate: 54 Baseline Blood Pressure: Blood Pressure Systolic: 212 Blood Pressure Diastolic: 76 Vital Signs Date Time Temp Pulse Resp B/P (MAP) Pulse Ox O2 Delivery O2 Flow Rate FiO2 01/30/21 08:52 58 16 162/76 (104) 96 Room Air Baseline Vital Signs Vital Signs Date Time Temp Pulse Resp B/P (MAP) Pulse Ox O2 Delivery O2 Flow Rate FiO2 01/30/21 08:52 58 16 162/76 (104) 96 Room Air Baseline EKG: Baseline EKG: NSR Summary: After explaining the procedure and details to the patient, he signed the consent and was brought to the stress nuclear laboratory. Patient exercised on standard [place] protocol, EKG, heart rate and blood pressure were monitored continuously, resting and stress doses of radio tracer were injected, imaging was acquired and reviewed in the short axis, horizontal long axis and vertical long axis views Patient was able to exercise for a total of 8 minutes on [place] protocol, METs 9.7 Maximum heart rate 137 Maximum blood pressure 218/88 Stress EKG, Minimal nondiagnostic changes Recovery EKG, Return to baseline TID: 0.99 SSS: 1 SDS: 1 EF: 66 Conclusion: 1. Good exercise tolerance for a total of 8 minutes on standard [place] protocol, 9.7 METS achieving 91% of maximal expected heart rate 2. Frequent PVCs noted early in exercise improved at peak stress level and recovery. 3. Severe hypertensive response to exercise with peak blood pressure 218/88 return to baseline during recovery 4. Minimal nondiagnostic EKG changes with exercise return to baseline during recovery 5. No ischemia or infarction on SPECT images 6. Normal left ventricular size, EF 66% VIRIDIANA CAMACHO MD Jan 30, 2021 15:20
== END ==
LOC: CARD 07:30
PROVIDERS: ATTEND Internal Medicine Cardiovascular Disease
DX: I10 Essential (primary) hypertension (principal)
CPT/HCPCS: 78452; 93017; A9502

== ENCOUNTER 2021-03-21 05:31 | Outpatient (RCR) | payer MEDICARE, OTHER ==
[~2021-03-21] VITALS: Ht 177.8 cm; Wt 78.5 kg
[~2021-03-21 05:31] MED LIST changes: +ASPI-999 PO; -CATHETER FLUSH 10 ML SYR IV PRN; +FOLI20CA PO; +OMG1KC PO
== END 2021-03-21 10:34 | disposition home or self-care (01) ==
LOC: PREOP 05:31
PROVIDERS: ATTEND Surgery
DX: Z01.812 Encounter for preprocedural laboratory examination (principal); K21.9 Gastro-esophageal reflux disease without esophagitis; K29.70 Gastritis, unspecified, without bleeding; Z20.822 Contact with and (suspected) exposure to COVID-19
CPT/HCPCS: 87635

== ENCOUNTER 2021-03-25 06:56 | Day surgery (SDC) | payer MEDICARE, OTHER ==
[~2021-03-25] VITALS: Ht 177.8 cm; Wt 78.5 kg
[2021-03-25] MEDS ORDERED: LACTATED RINGERS 1,000 ML IV STA (07:02)
[2021-03-25 07:13] VITALS: BP 145/75
[2021-03-25] MEDS ORDERED: HURRICAINE EXT TUBE (BENZOCAINE) XX PRN (07:15)
[2021-03-25] MEDS ORDERED: proPOfol 200 MG/20 ML (DIPRIVAN) VIAL IV ONE (07:15)
[2021-03-25 08:25] VITALS: BP 134/63
--- NOTE | 2021-03-25 08:25 | Progress Note-Post Operative ---
Post-Operative Progess Note Surgeon (s)/Disability Manager (s) Surgeon MEGAN VILLEDA DO Disability Manager: none Pre-Operative Diagnosis HX of Clark's Esophagus, Gastritis Post-Operative Diagnosis Same plus small Hiatal hernia Procedure & Operative Findings Date of Procedure 03/25/21 Procedure Performed/Findings PROCEDURE NOTE: After informed consent was obtained, the patient was brought to the endoscopy suite, placed in bed in left lateral decubitus position. He was administered IV sedation by the TAXATION ECONOMIST who then monitored his vitals the entire time, heart rate, blood pressure and pulse ox and the scope was inserted down the mouth through the esophagus into the stomach. On the way down, noted the GE junction actually looked pretty good, took a picture, pushed into the stomach, pushed past the antrum into the duodenum. Duodenum looked good. Pulled back and did a biopsy of antrum, then retroflexed the scope and did a biopsy of the body of the stomach. Saw maybe a small hiatal hernia while retroflexing, took a picture of this and then pulled the scope into the GE junction, took another picture of the and then did a biopsy of the GE junction. Pushed the scope back into the stomach, suctioned all the air out of the stomach and then pulled the scope up the esophagus, took some pictures in the esophagus. There were no ulcers and at this point pulled the scope up the esophagus and out the mouth. The patient tolerated the procedure, and he recovered in endoscopy suite. Anesthesia Type IV sedation by TAXATION ECONOMIST Estimated Blood Loss Estimated blood loss (mL): scant Specimens/Packing Specimens Removed antral bx body of stomach bx GE jxn bx MEGAN VILLEDA DO Mar 25, 2021 08:25
--- NOTE | 2021-03-25 08:26 | Endoscopy Discharge Instruct ---
Endo Procedure/Findings Findings 1.: Clark's Esophagus 2.: Gastritis 3.: Hiatal Hernia Discharge Instructions - Activity: You might feel a little sleepy until tomorrow. This is due to the medicine you received to relax you. Until tomorrow, you should: NOT drive a car, operate machinery or power tools. NOT drink any alcoholic beverages. NOT make any important decisions or sign importortant papers. Do not return to work until tomorrow, unless otherwise instructed. Resume previous activities tomorrow. Diet: Start by taking liquids. If you tolerate liquids, advance to solid food. 1.: EGD in 1 year Notify Physician - If you experience excessive bleeding, unusual abdominal pain, fever, or chest pain, contact your doctor immediately. MEGAN VILLEDA DO Mar 25, 2021 08:26
[2021-03-25 08:30] VITALS: BP 141/68
[2021-03-25 09:00] VITALS: BP 155/77
--- NOTE | 2021-03-25 09:07 | Anesthesia-General Post-Op ---
MAC Patient Condition Mental Status/LOC: Same as Preop Cardiovascular: Satisfactory Nausea/Vomiting: Absent Respiratory: Satisfactory Pain: Controlled Complications: Absent Post Op Complications Complications None Follow Up Care/Instructions Patient Instructions None needed. Anesthesiology Discharge Order Discharge Order Patient is doing well, no complaints, stable vital signs, no apparent adverse anesthesia problems. No complications reported per nursing. TRINA HARRIS CRNA Mar 25, 2021 09:07
== END 2021-03-25 09:00 | disposition home or self-care (01) ==
LOC: ENDO 06:56
PROVIDERS: ATTEND Surgery
DX: K29.70 Gastritis, unspecified, without bleeding (principal); K44.9 Diaphragmatic hernia without obstruction or gangrene; K22.70 Barrett's esophagus without dysplasia; K29.50 Unspecified chronic gastritis without bleeding; K21.9 Gastro-esophageal reflux disease without esophagitis; I10 Essential (primary) hypertension; G47.33 Obstructive sleep apnea (adult) (pediatric); Z79.899 Other long term (current) drug therapy; Z87.891 Personal history of nicotine dependence; Z90.49 Acquired absence of other specified parts of digestive tract; Z79.82 Long term (current) use of aspirin
CPT/HCPCS: 88305

== ENCOUNTER → 2021-04-16 | Outpatient (CLI) | payer MEDICARE, OTHER ==
[2021-04-16 13:18] LABS: BASOPHILS # (AUTO) 0.1 10^3/uL (0.0-0.1); BASOPHILS % (AUTO) 1 % (0-10); EOSINOPHILS # (AUTO) 0.5 10^3/uL (0.0-0.3); EOSINOPHILS % (AUTO) 8 % (0-10); HEMATOCRIT 36 % (40-54); HEMOGLOBIN 12.6 g/dL (13.3-17.7); LYMPHOCYTES # (AUTO) 1.5 10^3/uL (1.0-4.0); LYMPHOCYTES % (AUTO) 21 % (12-44); MEAN CORPUSCULAR HEMOGLOBIN 35 pg (25-34); MEAN CORPUSCULAR HGB CONC 35 g/dL (32-36); MEAN CORPUSCULAR VOLUME 100 fL (80-99); MEAN PLATELET VOLUME 9.1 fL (9.0-12.2); MONOCYTES # (AUTO) 1.2 10^3/uL (0.0-1.0); MONOCYTES % (AUTO) 17 % (0-12); NEUTROPHILS # (AUTO) 3.8 10^3/uL (1.8-7.8); NEUTROPHILS % (AUTO) 53 % (42-75); PLATELET COUNT 233 10^3/uL (130-400); WHITE BLOOD COUNT 7.1 10^3/uL (4.3-11.0)
[2021-04-16 13:28] LABS: ALANINE AMINOTRANSFERASE 66 U/L (0-55); ALBUMIN 4.1 GM/DL (3.2-4.5); ALKALINE PHOSPHATASE 128 U/L (40-136); BILIRUBIN,TOTAL 0.6 MG/DL (0.1-1.0); BUN/CREATININE RATIO 12; CALCIUM 9.6 MG/DL (8.5-10.1); CARBON DIOXIDE 25 MMOL/L (21-32); CHLORIDE 97 MMOL/L (98-107); CREATININE SERUM 0.92 MG/DL (0.60-1.30); GFR ESTIMATED > 60; GLUCOSE 106 MG/DL (70-105); POTASSIUM 4.5 MMOL/L (3.6-5.0); SODIUM 129 MMOL/L (135-145)
== END ==
LOC: ONC 13:09
PROVIDERS: ATTEND Internal Medicine Hematology & Oncology
DX: D46.22 Refractory anemia with excess of blasts 2 (principal); D89.811 Chronic graft-versus-host disease; I10 Essential (primary) hypertension; E78.5 Hyperlipidemia, unspecified; Z94.81 Bone marrow transplant status; Z92.21 Personal history of antineoplastic chemotherapy; Z98.890 Other specified postprocedural states
CPT/HCPCS: 80053; 83615; 85025; G0463; 99213

== ENCOUNTER → 2021-09-20 | Outpatient (CLI) | payer MEDICARE, OTHER | LOC: LAB 12:36 | PROVIDERS: ATTEND Nurse Practitioner Family | DX: Z20.822 Contact with and (suspected) exposure to COVID-19 (principal) | CPT/HCPCS: 87636 ==